=== PATIENT | female | born 1935 | race American Indian/Alaskan Native ===

== ENCOUNTER 2017-04-25 19:00 | Inpatient (IN) | payer MEDICARE, BC ==
[2017-04-25 19:04] VITALS: BMI 24.2
--- NOTE | 2017-04-25 20:21 | C.PDOC ---
History Of Present Illness 82 y/o female with PMHx of COPD presents to ED with multiple complaints including herpes zoster to left buttock, lesion on left medial digit dorsally and ulcers to mouth. Patient is dramatic at ED and reports she has only been able to drink soup secondary to ulcers in mouth. Patient had previously states she was "sob" but upon evaluation patient shows no signs of respiratory distress and O2 stats are at 100% on room air. Patient states "I want to be admitted". No other complaints at this time. Chief Complaint (Nursing): Abnormal Skin Integrity History Per: Patient History/Exam Limitations: no limitations Onset/Duration Of Symptoms: Days Current Symptoms Are (Timing): Still Present Past Medical History Reviewed: Historical Data, Nursing Documentation, Vital Signs Vital Signs: Last Vital Signs Temp 99.2 F 04/25/17 22:38 Pulse 76 04/25/17 22:38 Resp 19 04/25/17 22:38 BP 114/67 04/25/17 22:38 Pulse Ox 100 04/25/17 22:38 - Medical History PMH: Anemia (HX.), Arthritis (RA), COPD, Gastritis, HTN, Rheumatoid Arthritis Surgical History: Tonsillectomy - [facility] Procedures CATARAC PHACOEMULS/ASPIR (09/10/13) ENDO RECTUM POLYPECTOMY (12/10/12) ESOPHAGOGASTRODUODENOSCOPY [EGD] W/CLOSED BIOPSY (12/10/12) INSERT LENS AT CATAR EXT (09/10/13) INSERTION OF INFUSION DEV INTO R BASILIC VEIN, PERC APPROACH (06/07/15) INSERTION OF INFUSION DEV INTO SUP VENA CAVA, PERC APPROACH (06/18/15) TRANSFUSE NONAUT RED BLOOD CELLS IN PERIPH VEIN, PERC (06/18/15) ULTRASONOGRAPHY OF RIGHT UPPER EXTREMITY VEINS, GUIDANCE (06/07/15) ULTRASONOGRAPHY OF SUPERIOR VENA CAVA, GUIDANCE (06/18/15) Family History: States: No Known Family Hx - Social History Hx Alcohol Use: No Hx Substance Use: No - Immunization History Hx Tetanus Toxoid Vaccination: No Hx Influenza Vaccination: No Hx Pneumococcal Vaccination: No Review Of Systems Constitutional: Negative for: Fever, Chills Gastrointestinal: Negative for: Nausea, Vomiting Genitourinary: Negative for: Dysuria, Hematuria Skin: Positive for: Rash Neurological: Negative for: Weakness, Numbness Physical Exam - Physical Exam Appears: Non-toxic, No Acute Distress Skin: Warm, Dry, Rash (3- 2cm in diameter herpes zoster to left buttock. + superficial ulcer to left medial digit on dorsal aspect) Head: Atraumatic, Normacephalic Eye(s): bilateral: Normal Inspection, EOMI Oral Mucosa: Moist Gingiva: No Bleeding, Other (Superficial ulcer to oral mucosa bilaterally ) Throat: Normal, No Erythema, No Exudate Neck: Normal ROM, Supple Chest: Symmetrical Cardiovascular: Rhythm Regular Respiratory: Normal Breath Sounds, No Rales, No Rhonchi, No Wheezing Gastrointestinal/Abdominal: Soft, No Tenderness, No Guarding, No Rebound Neurological/Psych: Oriented x3, Normal Speech, Normal Motor, Normal Sensation ED Course And Treatment - Laboratory Results Result Diagrams: 04/25/17 20:30 04/25/17 20:30 O2 Sat by Pulse Oximetry: 98 (RA) Pulse Ox Interpretation: Normal Medical Decision Making Medical Decision Making: Impression: Plan: Evaluation of SOB with CXR and Routine Labs Progress: Disposition - Disposition Disposition: HOME/ ROUTINE Disposition Time: 20:22 Condition: GOOD - Clinical Impression Clinical Impression: Macrocytic anemia, Renal insufficiency - Scribe Statement The provider has reviewed the documentation as recorded by the Scribe Esme Crouch All medical record entries made by the Scribe were at my direction and personally dictated by me. I have reviewed the chart and agree that the record accurately reflects my personal performance of the history, physical exam, medical decision making, and the department course for this patient. I have also personally directed, reviewed, and agree with the discharge instructions and disposition. Decision To Admit - Pt Status Changed To: Hospital Disposition Of: Inpatient - Admit Certification Admit to Inpatient:: After my assessment, the patient will require hospitalization for at least two midnights. This is because of the severity of symptoms shown, intensity of services needed, and/or the medical risk in this patient being treated as an outpatient. - InPatient: Physician Admission Certification: I certify that this patient requires 2 or more midnights of care for the following reason:: macrocytic anemia,renal insufficiency - . Bed Request Type: Regular Admitting Physician: Ar Beavers Patient Diagnosis: Macrocytic anemia, Renal insufficiency
[2017-04-25 20:33] LABS: MONO # 0.1 K/uL (0.0-0.8); NRBC % 0.4 % (0.0-2.0); RED CELL DISTRIBUTION WIDTH 17.2 % (11.5-14.5)
[2017-04-25 20:46] LABS: BASO % 0.4 % (0.0-2.0); EOS % 0.5 % (0.0-4.0); HEMATOCRIT 23.2 % (34.0-47.0); LYMPH # 1.6 K/uL (1.0-4.3); LYMPH % 42.6 % (20.0-40.0); MEAN CORPUSCULAR HEMOGLOBIN 32.8 pg (27.0-31.0); MEAN CORPUSCULAR HGB CONC 32.9 g/dL (33.0-37.0); MEAN PLATELET VOLUME 8.1 fL (7.2-11.7); MONO % 2.8 % (0.0-10.0); POTASSIUM 5.2 mmol/L (3.6-5.2)
[2017-04-25 20:48] LABS: ALB/GLOB RATIO 1.1 (1.0-2.1); BILIRUBIN,TOTAL 3.5 mg/dL (0.2-1.3); TOTAL PROTEIN 8.9 g/dL (6.3-8.3)
[2017-04-25 20:49] LABS: CALCIUM 8.8 mg/dl (8.6-10.4)
[2017-04-25 20:52] LABS: WHITE BLOOD COUNT 3.7 K/uL (4.8-10.8)
[2017-04-25 20:53] LABS: MEAN CELL VOLUME 99.7 fL (81.0-99.0)
[2017-04-25 22:57] LABS: FOLATE > 20.0 ng/mL
--- NOTE | 2017-04-26 07:57 | RAD ---
PROCEDURE: CHEST RADIOGRAPH, 1 VIEW HISTORY: SOB COMPARISON: Portable chest radiograph 07/06/2016. FINDINGS: LUNGS: Clear. PLEURA: No pneumothorax or pleural fluid seen. CARDIOVASCULAR: Normal. OSSEOUS STRUCTURES: No significant abnormalities. VISUALIZED UPPER ABDOMEN: Normal. OTHER FINDINGS: Bilateral breast implants again evident. IMPRESSION: No interval acute cardiopulmonary disease appreciated.
[2017-04-26] MEDS ORDERED: Lidocaine 1% Inj (20ml) INFIL ONE (08:07)
--- NOTE | 2017-04-26 08:40 | CP.PCM.CON ---
History of Present Illness - History of Present Illness History of Present Illness: This is an 82 year old woman with mouth ulcers, pain and anemia. Patient was previously evaluated 11/24/2012 for poor appetite, belching, weight loss. Colonoscopy and EGD 12/10/12 showed hyperplastic polyp, internal hemorrhoids and non-erosive gastritis, negative fror H pylori. Patient was admiktted 04/25/2017 for herpes zoster left buttock, and mouth ulcers. She states that the mouth ulcers have been present for the past three weeks, making it impossible to eat solid food, so that she has been subsisting on soup. Her appetite has been good, but she has lost weight, an amount which she cannot quantify. She denies having nausea, vomiting, diarrhea, constipation , rectal bleeding and abdominal pain. Admitting lab work showed pancytopenia: WBC 3.7, HGB 7.6, MCV 99.7, platelets 90K. In June, the CBC showed WBC 10.6, HGB 12.6, platelets 256K. Stool occult blood was negative. Review of Systems - Review of Systems All systems: reviewed and no additional remarkable complaints except - Constitutional Constitutional: absent: Chills, Fever, Weakness - EENT Nose/Mouth/Throat: Mouth Lesions, Odynophagia - Gastrointestinal Gastrointestinal: Dysphagia, Odynophagia. absent: Abdominal Pain, Constipation , Diarrhea, Heartburn, Hematochezia, Nausea, Vomiting - Genitourinary Genitourinary: absent: Dysuria, Hematuria Past Patient History - Infectious Disease Hx of Infectious Diseases: None - Tetanus Immunizations Tetanus Immunization: Unknown - Past Medical History & Family History Past Medical History?: Yes - Past Social History Smoking Status: Former Smoker - CARDIAC Hx Cardiac Disorders: Yes Hx Hypertension: Yes - PULMONARY Hx Respiratory Disorders: Yes Hx Chronic Obstructive Pulmonary Disease (COPD): Yes - NEUROLOGICAL Hx Neurological Disorder: Yes HX Cerebrovascular Accident: Yes (2009) - HEENT Hx HEENT Problems: Yes Hx Cataracts: Yes (both eyes) - RENAL Hx Chronic Kidney Disease: No - ENDOCRINE/METABOLIC Hx Endocrine Disorders: Yes Hx Diabetes Mellitus Type 2: Yes (no meds) - HEMATOLOGICAL/ONCOLOGICAL Hx Anemia: Yes (HX.) Hx Blood Transfusions: Yes - INTEGUMENTARY Hx Dermatological Problems: Yes Other/Comment: shingles L Buttock - MUSCULOSKELETAL/RHEUMATOLOGICAL Hx Falls: No - GASTROINTESTINAL Hx Gastrointestinal Disorders: Yes Hx Gastritis: Yes - GENITOURINARY/GYNECOLOGICAL Hx Genitourinary Disorders: No - PSYCHIATRIC Hx Substance Use: No - SURGICAL HISTORY Hx Surgeries: Yes Hx Tonsillectomy: Yes - ANESTHESIA Hx Anesthesia: Yes Hx Anesthesia Reactions: No Hx Malignant Hyperthermia: No Meds Allergies/Adverse Reactions: Allergies Allergy/AdvReac Type Severity Reaction Status Date / Time Penicillins Allergy Intermediate Verified 04/25/17 19:01 - Medications Medications: Current Medications Clopidogrel Bisulfate (Plavix) 75 mg PO DAILY [facility] Enoxaparin Sodium (Lovenox) 40 mg SC DAILY [facility] Ergocalciferol (Drisdol 50,000 Intl Units Cap) 1 cap PO QWK [facility] Folic Acid (Folic Acid) 1 mg PO DAILY [facility] Home Med (Fluticasone/Vilanterol [Breo Ellipta 100-25 Mcg Inh]) 1 pow IH DAILY [facility] Sodium Chloride (Sodium Chloride 0.45%) 1,000 mls @ 40 mls/hr IV .Q24H [facility] Multivitamins/Minerals (Therapeutic-M Tab) 1 tab PO DAILY [facility] Pneumococcal Polyvalent Vaccine (Pneumovax 23 Vaccine) 0.5 ml IM .ONCE ONE Stop: 04/28/17 10:01 Valacyclovir HCl (Valtrex) 500 mg PO BID [facility] Physical Exam - Constitutional Appears: No Acute Distress - Head Exam Head Exam: ATRAUMATIC, NORMOCEPHALIC - Eye Exam Eye Exam: EOMI, PERRL - Neck Exam Neck exam: Negative for: Lymphadenopathy, Thyromegaly - Respiratory Exam Respiratory Exam: NORMAL BREATHING PATTERN. absent: Rales, Rhonchi, Wheezes - Cardiovascular Exam Cardiovascular Exam: REGULAR RHYTHM, +S1, +S2. absent: Gallop, Rubs, Systolic Murmur - GI/Abdominal Exam GI & Abdominal Exam: Normal Bowel Sounds, Soft. absent: Mass, Organomegaly, Tenderness - Rectal Exam Rectal Exam: Deferred - Extremities Exam Extremities exam: Negative for: calf tenderness, pedal edema Results - Vital Signs Recent Vital Signs: Last Vital Signs Temp 98.9 F 04/26/17 01:11 Pulse 80 04/26/17 01:11 Resp 20 04/26/17 01:11 BP 127/59 L 04/26/17 01:11 Pulse Ox 99 04/26/17 01:20 - Labs Result Diagrams: 04/25/17 20:30 04/25/17 20:30 Labs: Laboratory Results - last 24 hr 04/25/17 04/25/17 04/25/17 20:30 20:30 21:19 WBC 3.7 L D RBC 2.32 L Hgb 7.6 L D Hct 23.2 L MCV 99.7 H D MCH 32.8 H MCHC 32.9 L RDW 17.2 H Plt Count 90 L D MPV 8.1 Neut % (Auto) 53.7 Lymph % (Auto) 42.6 H Kenton % (Auto) 2.8 Eos % (Auto) 0.5 Baso % (Auto) 0.4 Neut # 2.0 Lymph # 1.6 Kenton # 0.1 Eos # 0.0 Baso # 0.0 Differential Comment Sodium 133 Potassium 5.2 Chloride 99 Carbon Dioxide 21 L Anion Gap 18 BUN 44 H Creatinine 2.3 H Est GFR ( Amer) 25 Est GFR (Non-Af Amer) 20 Random Glucose 79 Calcium 8.8 Total Bilirubin 3.5 H AST 79 H ALT 38 Alkaline Phosphatase 373 H NT-Pro-B Natriuret Pep 941 H Total Protein 8.9 H Albumin 4.6 Globulin 4.3 H Albumin/Globulin Ratio 1.1 Vitamin B12 Folate Stool Occult Blood Blood Type A POSITIVE Antibody Screen Negative 04/25/17 04/25/17 21:27 21:41 WBC RBC Hgb Hct MCV MCH MCHC RDW Plt Count MPV Neut % (Auto) Lymph % (Auto) Kenton % (Auto) Eos % (Auto) Baso % (Auto) Neut # Lymph # Kenton # Eos # Baso # Differential Comment Sodium Potassium Chloride Carbon Dioxide Anion Gap BUN Creatinine Est GFR ( Amer) Est GFR (Non-Af Amer) Random Glucose Calcium Total Bilirubin AST ALT Alkaline Phosphatase NT-Pro-B Natriuret Pep Total Protein Albumin Globulin Albumin/Globulin Ratio Vitamin B12 666 Folate > 20.0 Stool Occult Blood Negative Blood Type Antibody Screen Assessment & Plan (1) Macrocytic anemia Assessment and Plan: Patient has anemia in the setting of pancytopenia, with macrocytosis and negative occult blood in the stool. This does not seem to be attributable to a gastrointestinal cause. Odynophagia is probably due to oral ulcers ? herpetic. Woill consider repeat EGD. Status: Acute
[2017-04-26] MEDS ORDERED: Enoxaparin 40 mg Syringe SC SCH (10:00)
[2017-04-26 11:45] LABS: HEMATOCRIT 20.2 % (34.0-47.0); MEAN CELL VOLUME 100.9 fL (81.0-99.0); MEAN CORPUSCULAR HEMOGLOBIN 33.8 pg (27.0-31.0); MEAN CORPUSCULAR HGB CONC 33.5 g/dL (33.0-37.0); MEAN PLATELET VOLUME 7.7 fL (7.2-11.7); RED CELL DISTRIBUTION WIDTH 16.6 % (11.5-14.5); WHITE BLOOD COUNT 3.1 K/uL (4.8-10.8)
[2017-04-26 11:55] LABS: RETIC% 0.8 % (0.5-1.5)
[2017-04-26 12:03] LABS: BILIRUBIN,TOTAL 3.2 mg/dL (0.2-1.3)
[2017-04-26] MEDS: Ergocalciferol 50,000 Intl Units Cap PO SCH ×2 (12:03→17:41)
[2017-04-26 12:04] LABS: ALB/GLOB RATIO 1.1 (1.0-2.1); CALCIUM 8.5 mg/dl (8.6-10.4); TOTAL PROTEIN 7.2 g/dL (6.3-8.3)
[2017-04-26] MEDS: Multivitamin With Minerals Tab PO SCH ×2 (12:04→17:41)
[2017-04-26] MEDS: Enoxaparin 30 mg Syringe SC SCH (12:04)
[2017-04-26] MEDS: Sodium Chloride 0.45% 1,000 ML IV SCH ×2 (12:04→17:47)
[2017-04-26 12:07] LABS: POTASSIUM 3.6 mmol/L (3.6-5.2)
[2017-04-26] MEDS ORDERED: Lidocaine 2% Inj (20ml) ONE (13:32)
--- NOTE | 2017-04-26 13:42 | PCM.SURG1 ---
Surgeon's Initial Post Op Note - Surgeon's Notes Surgeon: Jordon Aguirre MD Toolsmith: NONE Type of Anesthesia: Local Pre-Operative Diagnosis: Poor venous access Operative Findings: Patent right brachial vein Post-Operative Diagnosis: Poor venous access Operation Performed: Single lumen picc placement, 33 cm. Tip is in the SVC. Specimen/Specimens Removed: none Estimated Blood Loss: EBL {In ML}: 2 Blood Products Given: N/A Drains Used: No Drains Post-Op Condition: Fair Date of Surgery/Procedure: 04/26/17 Time of Surgery/Procedure: 13:40
[2017-04-26] MEDS ORDERED: Lidocaine 2% Inj (20ml) INFIL ONE (14:30)
--- NOTE | 2017-04-26 16:01 | HP ---
HISTORY OF PRESENT ILLNESS: I was called to the emergency room to put her in the hospital. She is in her room right now. She has multiple problems. She came in very weak, also with a very low hemoglobin. She is an 82-year-old female with a past medical history of COPD with herpes zoster in the left buttock with ulcers, also with finger ulcer, abscess in her mouth, and she is quite anemic. PAST MEDICAL HISTORY: Anemia, arthritis, COPD, gastritis, hypertension, rheumatoid arthritis. PAST SURGICAL HISTORY: Tonsillectomy, cataracts, polypectomy, esophagogastroduodenoscopy with biopsy, cataract plus lens, basilic vein percutaneous approach, superior vena cava approach, transfusions, ultrasound of the right upper extremity vein guidance, also ultrasound of superior vena cava. FAMILY HISTORY: Hypertension in the family. SOCIAL HISTORY: No alcohol. No substance abuse. REVIEW OF SYSTEMS: She is very weak, multiple complaints to the buttocks, her finger, and mouth, cannot eat well; also feels very lethargic. PHYSICAL EXAMINATION: VITAL SIGNS: She has 98.9 temperature, 80 pulse, 127/59 blood pressure, 20 respiratory rate, and 98% O2 sat on room air. HEENT: Head is atraumatic and normocephalic. Mild distress, very flustered with too many things going on. She has a mouth abscess, difficult to open the mouth all the way and it is painful. NECK: Supple. Mild lymphadenopathy on the right side. HEART: Regular rate. LUNGS: Decreased breath sounds. Clear to auscultation. No wheezing. No rhonchi. No rales. ABDOMEN: Soft and nontender. Positive bowel sounds. No guarding. No rebound. NEUROLOGIC: Alert and oriented x3. Normal speech. SKIN: She has multiple ulcers to left buttock, this could be shingles; also on the finger of her left medial digit an ulcer. PSYCHIATRIC: A little bit stress, not anxious, not depressed. THYROID: Midline. No palpable lymphadenopathy except on the cervical side appreciated. LABORATORY DATA: She has a negative occult blood. Sodium 133, potassium 5.2, BUN 44, creatinine 2.3. A little bit of renal insufficiency, she will be on IV fluids. Calcium is 8.8, sugar is 79. Total bilirubin is 3.5, AST is 79, ALT is 38, and alkaline phosphatase is 373. BNP is 941. Folate is 20, B12 is 666. She has a 3.7 white count; hemoglobin is up to 7.6, we are transfusing her 2 units; hematocrit is 23.2; platelets are 90. PLAN: She is going to have consults with GI, Hematology, Infectious Disease. We will check her labs, IV fluids, transfusions, antibiotics for abscess. SHE IS ALLERGIC TO PENICILLIN. She is quite anemic. Tyrell Maya DO [facility]
--- NOTE | 2017-04-26 16:04 | CP.PCM.CON ---
History of Present Illness - History of Present Illness History of Present Illness: 82 yo woman with history of rheumatoid arthritis and recently diagnosed with herpes zoster on her left buttock 2-3 weeks ago, slightly better since then. The patient was found to have severe anemia, admitted for work up. The patient has no obvious bleeding, blood counts in the past have been pretty stable. She just had a PICC line placed with some bleeding from the site. The patient denies fever, night sweats, weight loss. She is complaining of some GOLD, no cough. She is complaining of soreness of mouth, some diarrhea. Past Patient History - Infectious Disease Hx of Infectious Diseases: None - Tetanus Immunizations Tetanus Immunization: Unknown - Past Medical History & Family History Past Medical History?: Yes - Past Social History Smoking Status: Former Smoker - CARDIAC Hx Cardiac Disorders: Yes Hx Hypertension: Yes - PULMONARY Hx Respiratory Disorders: Yes Hx Chronic Obstructive Pulmonary Disease (COPD): Yes - NEUROLOGICAL Hx Neurological Disorder: Yes HX Cerebrovascular Accident: Yes (2009) - HEENT Hx HEENT Problems: Yes Hx Cataracts: Yes (both eyes) - RENAL Hx Chronic Kidney Disease: No - ENDOCRINE/METABOLIC Hx Endocrine Disorders: Yes Hx Diabetes Mellitus Type 2: Yes (no meds) - HEMATOLOGICAL/ONCOLOGICAL Hx Anemia: Yes (HX.) Hx Blood Transfusions: Yes - INTEGUMENTARY Hx Dermatological Problems: Yes Other/Comment: shingles L Buttock - MUSCULOSKELETAL/RHEUMATOLOGICAL Hx Falls: No - GASTROINTESTINAL Hx Gastrointestinal Disorders: Yes Hx Gastritis: Yes - GENITOURINARY/GYNECOLOGICAL Hx Genitourinary Disorders: No - PSYCHIATRIC Hx Substance Use: No - SURGICAL HISTORY Hx Surgeries: Yes Hx Tonsillectomy: Yes - ANESTHESIA Hx Anesthesia: Yes Hx Anesthesia Reactions: No Hx Malignant Hyperthermia: No Meds Allergies/Adverse Reactions: Allergies Allergy/AdvReac Type Severity Reaction Status Date / Time Penicillins Allergy Intermediate Verified 04/25/17 19:01 - Medications Medications: Current Medications Clopidogrel Bisulfate (Plavix) 75 mg PO DAILY [facility] Last Admin: 04/26/17 12:04 Dose: Not Given Enoxaparin Sodium (Lovenox) 30 mg SC DAILY [facility] Last Admin: 04/26/17 12:04 Dose: Not Given Ergocalciferol (Drisdol 50,000 Intl Units Cap) 1 cap PO QWK [facility] Last Admin: 04/26/17 12:03 Dose: Not Given Folic Acid (Folic Acid) 1 mg PO DAILY [facility] Last Admin: 04/26/17 12:04 Dose: Not Given Sodium Chloride (Sodium Chloride 0.45%) 1,000 mls @ 40 mls/hr IV .Q24H [facility] Last Admin: 04/26/17 12:04 Dose: Not Given Multivitamins/Minerals (Therapeutic-M Tab) 1 tab PO DAILY [facility] Last Admin: 04/26/17 12:04 Dose: Not Given Pneumococcal Polyvalent Vaccine (Pneumovax 23 Vaccine) 0.5 ml IM .ONCE ONE Stop: 04/28/17 10:01 Fluticasone/Salmeterol (Advair Diskus 250/50) 1 puff INH RQ12 [facility] Valacyclovir HCl (Valtrex) 500 mg PO BID [facility] Last Admin: 04/26/17 12:04 Dose: Not Given Results - Vital Signs Recent Vital Signs: Last Vital Signs Temp 99.1 F 04/26/17 08:35 Pulse 78 04/26/17 08:35 Resp 20 04/26/17 08:35 BP 107/64 04/26/17 08:35 Pulse Ox 96 04/26/17 08:35 - Labs Result Diagrams: 04/26/17 11:25 04/26/17 11:25 Labs: Laboratory Results - last 24 hr 04/25/17 04/25/17 04/25/17 20:30 20:30 21:19 WBC 3.7 L D RBC 2.32 L Hgb 7.6 L D Hct 23.2 L MCV 99.7 H D MCH 32.8 H MCHC 32.9 L RDW 17.2 H Plt Count 90 L D MPV 8.1 Neut % (Auto) 53.7 Lymph % (Auto) 42.6 H Stokes % (Auto) 2.8 Eos % (Auto) 0.5 Baso % (Auto) 0.4 Neut # 2.0 Lymph # 1.6 Stokes # 0.1 Eos # 0.0 Baso # 0.0 Differential Comment Retic Count Sodium 133 Potassium 5.2 Chloride 99 Carbon Dioxide 21 L Anion Gap 18 BUN 44 H Creatinine 2.3 H Est GFR ( Amer) 25 Est GFR (Non-Af Amer) 20 Random Glucose 79 Calcium 8.8 Total Bilirubin 3.5 H GGT AST 79 H ALT 38 Alkaline Phosphatase 373 H Lactate Dehydrogenase NT-Pro-B Natriuret Pep 941 H Total Protein 8.9 H Albumin 4.6 Globulin 4.3 H Albumin/Globulin Ratio 1.1 Vitamin B12 Folate Stool Occult Blood Blood Type A POSITIVE Antibody Screen Negative 04/25/17 04/25/17 04/26/17 21:27 21:41 11:25 WBC 3.1 L RBC 2.00 L Hgb 6.7 L Hct 20.2 L MCV 100.9 H MCH 33.8 H MCHC 33.5 RDW 16.6 H Plt Count 71 L MPV 7.7 Neut % (Auto) Lymph % (Auto) Stokes % (Auto) Eos % (Auto) Baso % (Auto) Neut # Lymph # Stokes # Eos # Baso # Differential Comment Retic Count 0.8 Sodium Potassium Chloride Carbon Dioxide Anion Gap BUN Creatinine Est GFR ( Amer) Est GFR (Non-Af Amer) Random Glucose Calcium Total Bilirubin GGT AST ALT Alkaline Phosphatase Lactate Dehydrogenase NT-Pro-B Natriuret Pep Total Protein Albumin Globulin Albumin/Globulin Ratio Vitamin B12 666 Folate > 20.0 Stool Occult Blood Negative Blood Type Antibody Screen 04/26/17 11:25 WBC RBC Hgb Hct MCV MCH MCHC RDW Plt Count MPV Neut % (Auto) Lymph % (Auto) Stokes % (Auto) Eos % (Auto) Baso % (Auto) Neut # Lymph # Stokes # Eos # Baso # Differential Comment Retic Count Sodium 136 Potassium 3.6 Chloride 101 Carbon Dioxide 23 Anion Gap 16 BUN 39 H Creatinine 1.8 H Est GFR ( Amer) 33 Est GFR (Non-Af Amer) 27 Random Glucose 84 Calcium 8.5 L Total Bilirubin 3.2 H GGT 277 H AST 46 H D ALT 29 Alkaline Phosphatase 319 H Lactate Dehydrogenase 475 NT-Pro-B Natriuret Pep Total Protein 7.2 Albumin 3.7 Globulin 3.5 Albumin/Globulin Ratio 1.1 Vitamin B12 Folate Stool Occult Blood Blood Type Antibody Screen Assessment & Plan (1) Pancytopenia Assessment and Plan: Pancytopenia without splenomegaly on prior CATscans, normal b12, ferritin and iron studies, normal LDH, low retics, without any abnormal WBCs reported on smear. Her serum creatinine has improved on iv hydration. Possible etiologies include bone marrow suppression from meds (methotrexate, viral infection), low grade MDS, ??aplasia Will need a bone marrow biopsy. Patient agreeable. For now PRBC transfusion, one dose of Neupogen, will check indirect bili levels Status: Acute
--- NOTE | 2017-04-26 18:02 | CP.PCM.CON ---
History of Present Illness - History of Present Illness History of Present Illness: 82 year old woman with mouth ulcers, pain and anemia. started having painful ulcers left buttock 3 weeks ago failed out pt rx Now pancytopenic and with oral ulcers Started on Valtrex last night Patient was admiktted 04/25/2017 for herpes zoster left buttock, and mouth ulcers. She states that the mouth ulcers have been present for the past three weeks, making it impossible to eat solid food, so that she has been subsisting on soup. Her appetite has been good, but she has lost weight, an amount which she cannot quantify. She denies having nausea, vomiting, diarrhea, constipation , rectal bleeding and abdominal pain. Takes methotrexate for RA under care of Dr Mcdonald Seen by heme- to r/o Leukemia Bone Marrow Bx pending Review of Systems - Constitutional Constitutional: As Per HPI - EENT Eyes: absent: As Per HPI, Blind Spots, Blurred Vision, Change in Vision, Decreased Night Vision, Diplopia, Discharge, Dry Eye, Exophthalmos, Floaters, Irritation, Itchy Eyes, Loss of Peripheral Vision, Pain, Photophobia, Requires Corrective Lenses, Sees Flashes, Spots in Vision, Tunnel Vision, Other Visual Disturbances, Loss of Vision, Other Ears: absent: As Per HPI, Decreased Hearing, Ear Discharge, Ear Pain, Tinnitus, Abnormal Hearing, Disequilibrium, Dizziness, Other Nose/Mouth/Throat: As Per HPI - Breasts Breasts: absent: As Per HPI, Change in Shape, Mass, Pain, Nipple Discharge, Nipple Inversion, Skin Changes, Swelling, Other - Cardiovascular Cardiovascular: absent: As Per HPI, Acrocyanosis, Chest Pain, Chest Pain at Rest , Chest Pain with Activity, Claudication, Diaphoresis, Dyspnea, Dyspnea on Exertion, Edema, Irregular Heart Rhythm, Pain Radiating to Arm/Neck/Jaw, Leg Edema, Leg Ulcers, Lightheadedness, Orthopnea, Palpitations, Paroxysmal Nocturnal Dyspnea, Pedal Edema, Radiating Pain, Rapid Heart Rate, Slow Heart Rate, Syncope, Other - Respiratory Respiratory: absent: As Per HPI, Cough, Dyspnea, Hemoptysis, Dyspnea on Exertion , Wheezing, Snoring, Stridor, Pain on Inspiration, Chest Congestion, Excessive Mucous Production, Change in Mucous Color, Pain with Coughing, Other - Gastrointestinal Gastrointestinal: As Per HPI - Genitourinary Genitourinary: absent: As Per HPI, Change in Urinary Stream, Difficulty Urinating, Dysuria, Flank Pain, Hematuria, Pyuria, Nocturia, Urinary Incontinence, Urinary Frequency, Urinary Hesitance, Urinary Urgency, Voiding Freq/Small Amts, Freq UTI, Hx Renal/Bladder Calculi, Hx /Renal Surgery, Bladder Distension, Other - Reproductive: Female Reproductive:Female: absent: As Per HPI, Amenorrhea, Amenorrhea/ Control, Currently Menstual, Cycle <21 Days, Cycle >35 Days, Cycle Variable, Menses 1-7 Days, Menses >/= 8 Days, Menses Variable, Cycle > 4 Weeks Between, No Menses for 6 Months, Heavy Menses, Light Menses, Normal Menses, Spotting Between Cycles , S/P Hysterectomy, Menopausal, Post Menopausal, Premenarche, Abnormal Vaginal Bleeding, Dysmenorrhea, Dyspareunia, Genital Lesions, Genital Pruritis, Pelvic Pain, Prolapse Symptoms, Sexual Dysfunction, Vaginal Discharge, Vaginal Dryness , Vaginal Odor, Vaginal Pruritis, Other - Menstruation Menstruation: absent: As Per HPI, Amenorrhea, Amenorrhea/ Control, Currently Menstual, Cycle <21 Days, Cycle >35 Days, Cycle Variable, Menses 1-7 Days, Menses >/= 8 Days, Menses Variable, Cycle > 4 Weeks Between, No Menses for 6 Months, Heavy Menses, Light Menses, Normal Menses, Spotting Between Cycles , S/P Hysterectomy, Menopausal, Post Menopausal, Premenarche, Abnormal Vaginal Bleeding, Dysmenorrhea, Other - Musculoskeletal Musculoskeletal: As Per HPI - Integumentary Integumentary: As Per HPI - Neurological Neurological: absent: As Per HPI, Abnormal Gait, Abnormal Hearing, Abnormal Movements, Abnormal Speech, Behavioral Changes, Burning Sensations, Confusion, Convulsions, Disequilibrium, Dizziness, Numbness, Focal Weakness, Frequent Falls , Headaches, Lack of Coordination, Loss of Vision, Memory Loss, Paresthesias, Radicular Pain, Restless Legs, Sensory Deficit, Syncope, Tingling, Tremor, Vertigo, Weakness, Other Visual Disturbances, Other - Psychiatric Psychiatric: absent: As Per HPI, Abnormal Sleep Pattern, Anhedonia, Anxiety, Auditory Hallucinations, Behavioral Changes, Change in Appetite, Change in Libido, Confusion, Depression, Difficulty Concentrating, Hallucinations, Homicidal Ideation, Hopelessness, Irritability, Memory Loss, Mood Swings, Panic Attacks, Paranoia, Suicidal Ideation, Visual Hallucinations, Tactile Hallucinations, Other - Endocrine Endocrine: absent: As Per HPI, Change in Body Appearance, Change in Libido, Cold Intolorance, Deepening of Voice, Excessive Sweating, Fatigue, Flushing, Heat Intolorance, Increase in Ring/Shoe/Hat Size, Palpitations, Polydipsia, Polyphagia, Polyuria, Other - Hematologic/Lymphatic Hematologic: absent: As Per HPI, Easy Bleeding, Easy Bruising, Lymphadenopathy, Other Past Patient History - Infectious Disease Hx of Infectious Diseases: None - Tetanus Immunizations Tetanus Immunization: Unknown - Past Medical History & Family History Past Medical History?: Yes - Past Social History Smoking Status: Former Smoker - CARDIAC Hx Cardiac Disorders: Yes Hx Hypertension: Yes - PULMONARY Hx Respiratory Disorders: Yes Hx Chronic Obstructive Pulmonary Disease (COPD): Yes - NEUROLOGICAL Hx Neurological Disorder: Yes HX Cerebrovascular Accident: Yes (2009) - HEENT Hx HEENT Problems: Yes Hx Cataracts: Yes (both eyes) - RENAL Hx Chronic Kidney Disease: No - ENDOCRINE/METABOLIC Hx Endocrine Disorders: Yes Hx Diabetes Mellitus Type 2: Yes (no meds) - HEMATOLOGICAL/ONCOLOGICAL Hx Anemia: Yes (HX.) Hx Blood Transfusions: Yes - INTEGUMENTARY Hx Dermatological Problems: Yes Other/Comment: shingles L Buttock - MUSCULOSKELETAL/RHEUMATOLOGICAL Hx Falls: No - GASTROINTESTINAL Hx Gastrointestinal Disorders: Yes Hx Gastritis: Yes - GENITOURINARY/GYNECOLOGICAL Hx Genitourinary Disorders: No - PSYCHIATRIC Hx Substance Use: No - SURGICAL HISTORY Hx Surgeries: Yes Hx Tonsillectomy: Yes - ANESTHESIA Hx Anesthesia: Yes Hx Anesthesia Reactions: No Hx Malignant Hyperthermia: No Meds Allergies/Adverse Reactions: Allergies Allergy/AdvReac Type Severity Reaction Status Date / Time Penicillins Allergy Intermediate Verified 04/25/17 19:01 - Medications Medications: Current Medications Clopidogrel Bisulfate (Plavix) 75 mg PO DAILY [facility] Last Admin: 04/26/17 12:04 Dose: Not Given Enoxaparin Sodium (Lovenox) 30 mg SC DAILY [facility] Last Admin: 04/26/17 12:04 Dose: Not Given Ergocalciferol (Drisdol 50,000 Intl Units Cap) 1 cap PO QWK [facility] Last Admin: 04/26/17 17:41 Dose: 1 cap Folic Acid (Folic Acid) 1 mg PO DAILY [facility] Last Admin: 04/26/17 17:41 Dose: 1 mg Sodium Chloride (Sodium Chloride 0.45%) 1,000 mls @ 40 mls/hr IV .Q24H [facility] Last Admin: 04/26/17 17:47 Dose: 40 mls/hr Multivitamins/Minerals (Therapeutic-M Tab) 1 tab PO DAILY [facility] Last Admin: 04/26/17 17:41 Dose: 1 tab Pneumococcal Polyvalent Vaccine (Pneumovax 23 Vaccine) 0.5 ml IM .ONCE ONE Stop: 04/28/17 10:01 Fluticasone/Salmeterol (Advair Diskus 250/50) 1 puff INH RQ12 [facility] Valacyclovir HCl (Valtrex) 500 mg PO BID [facility] Last Admin: 04/26/17 17:41 Dose: 500 mg Physical Exam - Constitutional Appears: Non-toxic, Chronically Ill - Head Exam Head Exam: ATRAUMATIC, NORMAL INSPECTION, NORMOCEPHALIC - Eye Exam Eye Exam: EOMI, PERRL. absent: Scleral icterus Pupil Exam: PERRL - ENT Exam ENT Exam: Mucous Membranes Dry, Normal External Ear Exam. absent: Normal Oropharynx Additional comments: superficial oral ulcers - Neck Exam Neck exam: Negative for: Lymphadenopathy - Respiratory Exam Respiratory Exam: Decreased Breath Sounds, Clear to Auscultation Bilateral - Cardiovascular Exam Cardiovascular Exam: REGULAR RHYTHM, +S1, +S2 - GI/Abdominal Exam GI & Abdominal Exam: Diminished Bowel Sounds, Distended, Soft. absent: Guarding , Tenderness - Rectal Exam Rectal Exam: Deferred - Exam Exam: NORMAL INSPECTION - Extremities Exam Extremities exam: Positive for: pedal pulses present. Negative for: calf tenderness, tenderness - Back Exam Back exam: absent: CVA tenderness (L), CVA tenderness (R), paraspinal tenderness - Neurological Exam Neurological exam: Alert, CN II-XII Intact, Oriented x3, Reflexes Normal - Psychiatric Exam Psychiatric exam: Normal Mood - Skin Skin Exam: Dry Additional comments: 3 large superficial clean ulcers on left buttock- no vesicles no pus no drainage Results - Vital Signs Recent Vital Signs: Last Vital Signs Temp 99.1 F 04/26/17 08:35 Pulse 78 04/26/17 08:35 Resp 20 04/26/17 08:35 BP 107/64 04/26/17 08:35 Pulse Ox 96 04/26/17 08:35 - Labs Result Diagrams: 04/26/17 11:25 04/26/17 11:25 Labs: Laboratory Results - last 24 hr 04/25/17 04/25/17 04/25/17 20:30 20:30 21:19 WBC 3.7 L D RBC 2.32 L Hgb 7.6 L D Hct 23.2 L MCV 99.7 H D MCH 32.8 H MCHC 32.9 L RDW 17.2 H Plt Count 90 L D MPV 8.1 Neut % (Auto) 53.7 Lymph % (Auto) 42.6 H [place] % (Auto) 2.8 Eos % (Auto) 0.5 Baso % (Auto) 0.4 Neut # 2.0 Lymph # 1.6 [place] # 0.1 Eos # 0.0 Baso # 0.0 Differential Comment Retic Count Sodium 133 Potassium 5.2 Chloride 99 Carbon Dioxide 21 L Anion Gap 18 BUN 44 H Creatinine 2.3 H Est GFR ( Amer) 25 Est GFR (Non-Af Amer) 20 Random Glucose 79 Calcium 8.8 Total Bilirubin 3.5 H GGT AST 79 H ALT 38 Alkaline Phosphatase 373 H Lactate Dehydrogenase NT-Pro-B Natriuret Pep 941 H Total Protein 8.9 H Albumin 4.6 Globulin 4.3 H Albumin/Globulin Ratio 1.1 Vitamin B12 Folate Stool Occult Blood Blood Type A POSITIVE Antibody Screen Negative 04/25/17 04/25/17 04/26/17 21:27 21:41 11:25 WBC 3.1 L RBC 2.00 L Hgb 6.7 L Hct 20.2 L MCV 100.9 H MCH 33.8 H MCHC 33.5 RDW 16.6 H Plt Count 71 L MPV 7.7 Neut % (Auto) Lymph % (Auto) [place] % (Auto) Eos % (Auto) Baso % (Auto) Neut # Lymph # [place] # Eos # Baso # Differential Comment Retic Count 0.8 Sodium Potassium Chloride Carbon Dioxide Anion Gap BUN Creatinine Est GFR ( Amer) Est GFR (Non-Af Amer) Random Glucose Calcium Total Bilirubin GGT AST ALT Alkaline Phosphatase Lactate Dehydrogenase NT-Pro-B Natriuret Pep Total Protein Albumin Globulin Albumin/Globulin Ratio Vitamin B12 666 Folate > 20.0 Stool Occult Blood Negative Blood Type Antibody Screen 04/26/17 11:25 WBC RBC Hgb Hct MCV MCH MCHC RDW Plt Count MPV Neut % (Auto) Lymph % (Auto) [place] % (Auto) Eos % (Auto) Baso % (Auto) Neut # Lymph # [place] # Eos # Baso # Differential Comment Retic Count Sodium 136 Potassium 3.6 Chloride 101 Carbon Dioxide 23 Anion Gap 16 BUN 39 H Creatinine 1.8 H Est GFR ( Amer) 33 Est GFR (Non-Af Amer) 27 Random Glucose 84 Calcium 8.5 L Total Bilirubin 3.2 H GGT 277 H AST 46 H D ALT 29 Alkaline Phosphatase 319 H Lactate Dehydrogenase 475 NT-Pro-B Natriuret Pep Total Protein 7.2 Albumin 3.7 Globulin 3.5 Albumin/Globulin Ratio 1.1 Vitamin B12 Folate Stool Occult Blood Blood Type Antibody Screen Assessment & Plan (1) Pancytopenia Status: Acute (2) Renal insufficiency Status: Acute (3) ARF (acute renal failure) with tubular necrosis Status: Acute (4) Dehydration, severe Status: Acute - Assessment and Plan (Free Text) Assessment: pancytopenia with oral and skin lesions as well as elevated LFT's r/o drug toxicity, autoimmune and or neoplastic doubt Bechets r/o jacinto jorge l syndrome doubt bacterial infection no evidence of systemic sepsis await cultures and serologies may need skin bx Heme and GI eval in progress
[2017-04-26] MEDS: Mag&Al/Simet/Diphen/Lido 237 ML KIT PO SCH ×2 (19:39→21:51)
[2017-04-27] MEDS: Mag&Al/Simet/Diphen/Lido 237 ML KIT PO SCH ×5 (02:31→22:30)
[2017-04-27 03:02] LABS: TOTAL PROTEIN, SERUM 5.9 g/dL (6.1-8.1)
[2017-04-27] MEDS: Sodium Chloride 0.45% 1,000 ML IV SCH (07:30)
[2017-04-27 07:45] LABS: INTRACELLULAR PARASITE NEGATIVE (NEGATIVE)
[2017-04-27] MEDS: Fluticasone-Salmeterol 250-50mcg Diskus INH SCH (08:00)
[2017-04-27 08:36] LABS: POTASSIUM 3.6 mmol/L (3.6-5.2)
[2017-04-27 08:39] LABS: ALB/GLOB RATIO 1.5 (1.0-2.1); BASO % 0.4 % (0.0-2.0); BILIRUBIN,TOTAL 4.6 mg/dL (0.2-1.3); CALCIUM 8.8 mg/dl (8.6-10.4); EOS # 0.1 K/uL (0.0-0.7); EOS % 4.9 % (0.0-4.0); HEMATOCRIT 31.7 % (34.0-47.0); LYMPH # 1.2 K/uL (1.0-4.3); LYMPH % 38.4 % (20.0-40.0); MEAN CORPUSCULAR HEMOGLOBIN 33.5 pg (27.0-31.0); MEAN CORPUSCULAR HGB CONC 34.7 g/dL (33.0-37.0); MEAN PLATELET VOLUME 8.3 fL (7.2-11.7); MONO % 0.7 % (0.0-10.0); NRBC % 0.3 % (0.0-2.0); RED CELL DISTRIBUTION WIDTH 15.6 % (11.5-14.5); TOTAL PROTEIN 7.1 g/dL (6.3-8.3); WHITE BLOOD COUNT 3.1 K/uL (4.8-10.8)
[2017-04-27 08:40] LABS: MEAN CELL VOLUME 96.6 fL (81.0-99.0)
--- NOTE | 2017-04-27 09:01 | CP.PCM.PN ---
Subjective - Date & Time of Evaluation Date of Evaluation: 04/27/17 Time of Evaluation: 08:58 - Subjective Subjective: COVERING DR BROCK No bleeding or melena. Hematology note reviewed and bone marrow biopsy needed Objective - Vital Signs/Intake and Output Vital Signs (last 24 hours): Temp Pulse Resp BP Pulse Ox 99.5 F 84 20 138/70 98 04/27/17 04:04 04/27/17 04:04 04/27/17 04:04 04/27/17 04:04 04/27/17 00:00 Intake and Output: 04/27/17 04/27/17 06:59 18:59 Intake Total 1025 320 Balance 1025 320 - Medications Medications: Current Medications Clopidogrel Bisulfate (Plavix) 75 mg PO DAILY [facility] Last Admin: 04/26/17 12:04 Dose: Not Given Enoxaparin Sodium (Lovenox) 30 mg SC DAILY [facility] Last Admin: 04/26/17 12:04 Dose: Not Given Ergocalciferol (Drisdol 50,000 Intl Units Cap) 1 cap PO QWK [facility] Last Admin: 04/26/17 17:41 Dose: 1 cap Folic Acid (Folic Acid) 1 mg PO DAILY [facility] Last Admin: 04/26/17 17:41 Dose: 1 mg Sodium Chloride (Sodium Chloride 0.45%) 1,000 mls @ 40 mls/hr IV .Q24H [facility] Last Admin: 04/26/17 17:47 Dose: 40 mls/hr Multivitamins/Minerals (Therapeutic-M Tab) 1 tab PO DAILY [facility] Last Admin: 04/26/17 17:41 Dose: 1 tab Pneumococcal Polyvalent Vaccine (Pneumovax 23 Vaccine) 0.5 ml IM .ONCE ONE Stop: 04/28/17 10:01 Saliva Substitute (First Magic Mouthwash) 5 ml PO Q4H [facility] Last Admin: 04/27/17 02:31 Dose: 5 ml Fluticasone/Salmeterol (Advair Diskus 250/50) 1 puff INH RQ12 [facility] Valacyclovir HCl (Valtrex) 500 mg PO BID [facility] Last Admin: 04/26/17 17:41 Dose: 500 mg - Labs Labs: 04/27/17 07:15 04/27/17 07:15 - Constitutional Appears: No Acute Distress - Head Exam Head Exam: ATRAUMATIC, NORMOCEPHALIC - Respiratory Exam Respiratory Exam: NORMAL BREATHING PATTERN - Cardiovascular Exam Cardiovascular Exam: REGULAR RHYTHM - GI/Abdominal Exam GI & Abdominal Exam: Soft, Normal Bowel Sounds. absent: Tenderness - Extremities Exam Extremities Exam: absent: Pedal Edema Assessment and Plan (1) Oral ulcer Status: Acute (2) Pancytopenia Assessment & Plan: No evidence of GI blood loss at present. Stool occult blood pending, repeat Bone marrow biopsy to determine likely hematologic cause MDS, aplastic marrow, other. Status: Acute
--- NOTE | 2017-04-27 09:45 | PN ---
DATE: SUBJECTIVE: I saw Lilliam resting in bed. She slept whole night because of IV Lasix given to her for her status post 2 units of packed red blood cells, which her hemoglobin from 7 down to 6. She was continued on a regular diet because of the abscess from the mouth, so we gave her soft diet this morning. PHYSICAL EXAMINATION VITAL SIGNS: She has a 99.5 temperature, 84 pulse, 138/70 blood pressure, and 20 respiratory rate. HEENT: Head is atraumatic and normocephalic. Mouth is swollen. NECK: Supple. HEART: Regular rate. LUNGS: Decreased breath sounds, but clear. ABDOMEN: Soft. EXTREMITIES: Shows no edema. MEDICATIONS: She is currently on Advair, mouthwash, folic acid, Lovenox, Plavix, IV fluids, and Valtrex. LABORATORY DATA: She has 3.1 white count, 6.7 hemoglobin and 20.2 hematocrit, with 71 platelets. She has 136 sodium, potassium is 3.6, BUN is 39, creatinine is 1.8, which is better when she came in. Sugar is 84, calcium is 8.5, and total bilirubin is 3.2. GGT is 277, AST is 46, ALT is 29, and alkaline phosphatase is 319, and albumin is 3.5. Stool is negative. IMPRESSION AND PLAN: She was seen by Infectious Disease and at this time I do not think she needed intravenous antibiotics. She is on Valtrex for her shingles, also she is pancytopenic after her bone marrow transfusion, 1 dose of Neupogen, she is acutely anemic. She was seen by the street light servicer helper. She has a peripherally inserted central catheter line placement and hopefully she will continue to improve. We will check her labs tomorrow. Physical therapy will get her out of bed. Tyrell Maya DO [facility]
[2017-04-27] MEDS: Enoxaparin 30 mg Syringe SC SCH (10:00)
[2017-04-27] MEDS: Multivitamin With Minerals Tab PO SCH (10:00)
[2017-04-27 10:31] LABS: RBC URINE < 1 /hpf (0-3); URINE BILIRUBIN NEGATIVE (NEGATIVE); URINE BLOOD NEGATIVE (NEGATIVE); URINE COLOR Yellow (YELLOW); URINE GLUCOSE (UA) NORMAL (Normal); URINE KETONE NEGATIVE (NEGATIVE); URINE LEUKOCYTE ESTERASE 2+ Leu/uL (Negative); URINE PROTEIN NEGATIVE (NEGATIVE); URINE UROBILINOGEN NORMAL mg/dL (0.2-1.0); WBC URINE 87 /hpf (0-5)
[2017-04-28] MEDS: Mag&Al/Simet/Diphen/Lido 237 ML KIT PO SCH ×5 (02:18→17:44)
[2017-04-28 07:04] LABS: HEMATOCRIT 31.8 % (34.0-47.0); MEAN CELL VOLUME 96.9 fL (81.0-99.0); MEAN CORPUSCULAR HEMOGLOBIN 33.5 pg (27.0-31.0); MEAN CORPUSCULAR HGB CONC 34.6 g/dL (33.0-37.0); MEAN PLATELET VOLUME 7.7 fL (7.2-11.7); PLATELET COUNT 48 K/uL (130-400); RED CELL DISTRIBUTION WIDTH 15.7 % (11.5-14.5)
[2017-04-28 07:22] LABS: POTASSIUM 3.5 mmol/L (3.6-5.2)
[2017-04-28 07:22] LABS: WHITE BLOOD COUNT 1.2 K/uL (4.8-10.8)
[2017-04-28 07:24] LABS: BILIRUBIN,TOTAL 3.2 mg/dL (0.2-1.3)
[2017-04-28 07:25] LABS: ALB/GLOB RATIO 1.4 (1.0-2.1); CALCIUM 8.4 mg/dl (8.6-10.4); TOTAL PROTEIN 6.8 g/dL (6.3-8.3)
[2017-04-28] MEDS: Sodium Chloride 0.45% 1,000 ML IV SCH (07:30)
[2017-04-28] MEDS: Fluticasone-Salmeterol 250-50mcg Diskus INH SCH (08:00)
--- NOTE | 2017-04-28 09:39 | US ---
HISTORY: elevated LFT's COMPARISON: CT abdomen from 02/01/2016 and 01/13/2016 TECHNIQUE: Grayscale imaging was performed. FINDINGS: LIVER: Measures 16.5 cm. There are multiple variable sized echogenic foci throughout the liver and increased echogenicity of the liver parenchyma. No mass. No intrahepatic bile duct dilatation. GALLBLADDER: There are gallstones without wall thickening or pericholecystic fluid. The sonographic Burris's sign is negative. COMMON BILE DUCT: Measures 4.0 mm. No stones. No dilatation. PANCREAS: Unremarkable as visualized. No mass. No ductal dilatation. RIGHT KIDNEY: Measures 9.2cm. Normal echogenicity. There is a 4 mm nonobstructing stone in the upper pole and a 4 mm nonobstructing stone in the lower pole of the kidney. No mass, or hydronephrosis. LEFT KIDNEY: Measures 7.8cm. Normal echogenicity. There is a 3 mm nonobstructing stone in the lower pole of the kidney. No mass, or hydronephrosis. SPLEEN: Normal in size and contour. No mass. AORTA: No aneurysmal dilatation. IVC: Unremarkable. OTHER FINDINGS: None. IMPRESSION: 1. Hepatic steatosis. Multiple echogenic foci throughout the liver may represent biliary or portal venous air. CT scan of the abdomen with intravenous contrast is recommended for further evaluation. 2. Cholelithiasis. 3. Suspect nonobstructing stone in the kidneys. Important findings were discussed with the patient's nurse on 04/27/2017 in the a.m.
--- NOTE | 2017-04-28 09:46 | CP.PCM.PN ---
Subjective - Date & Time of Evaluation Date of Evaluation: 04/28/17 Time of Evaluation: 09:44 - Subjective Subjective: COVERING DR BROCK No bleeding or melena. Objective - Vital Signs/Intake and Output Vital Signs (last 24 hours): Temp Pulse Resp BP Pulse Ox 98.5 F 96 H 20 105/73 99 04/27/17 23:45 04/27/17 23:45 04/27/17 23:45 04/27/17 23:45 04/27/17 23:45 Intake and Output: 04/28/17 04/28/17 06:59 18:59 Intake Total 1260 Balance 1260 - Medications Medications: Current Medications Clopidogrel Bisulfate (Plavix) 75 mg PO DAILY [facility] Last Admin: 04/27/17 10:00 Dose: 75 mg Enoxaparin Sodium (Lovenox) 30 mg SC DAILY [facility] Last Admin: 04/27/17 10:00 Dose: 30 mg Ergocalciferol (Drisdol 50,000 Intl Units Cap) 1 cap PO QWK [facility] Last Admin: 04/26/17 17:41 Dose: 1 cap Folic Acid (Folic Acid) 1 mg PO DAILY [facility] Last Admin: 04/27/17 10:00 Dose: 1 mg Sodium Chloride (Sodium Chloride 0.45%) 1,000 mls @ 40 mls/hr IV .Q24H [facility] Last Admin: 04/27/17 07:30 Dose: 40 mls/hr Multivitamins/Minerals (Therapeutic-M Tab) 1 tab PO DAILY [facility] Last Admin: 04/27/17 10:00 Dose: 1 tab Pneumococcal Polyvalent Vaccine (Pneumovax 23 Vaccine) 0.5 ml IM .ONCE ONE Stop: 04/28/17 10:01 Saliva Substitute (First Magic Mouthwash) 5 ml PO Q4H [facility] Last Admin: 04/28/17 05:40 Dose: 5 ml Fluticasone/Salmeterol (Advair Diskus 250/50) 1 puff INH RQ12 [facility] Valacyclovir HCl (Valtrex) 500 mg PO BID [facility] Last Admin: 04/27/17 17:55 Dose: 500 mg - Labs Labs: 04/28/17 05:50 04/28/17 06:52 - Constitutional Appears: No Acute Distress - Respiratory Exam Respiratory Exam: NORMAL BREATHING PATTERN - Cardiovascular Exam Cardiovascular Exam: REGULAR RHYTHM - GI/Abdominal Exam GI & Abdominal Exam: Soft, Normal Bowel Sounds. absent: Tenderness - Extremities Exam Extremities Exam: Normal Inspection Assessment and Plan (1) Oral ulcer Assessment & Plan: Denies pain today Status: Acute (2) Pancytopenia Assessment & Plan: Awaiting hematology follow up for bone marrow biopsy No evidence of GI bleeding Stool occult blood pending. Status: Acute
[2017-04-28] MEDS ORDERED: Pneumococcal 23-Valent Vaccine IM ONE (10:00)
[2017-04-28] MEDS: Multivitamin With Minerals Tab PO SCH (10:00)
[2017-04-28] MEDS: Enoxaparin 30 mg Syringe SC SCH (10:00)
[2017-04-28 10:16] LABS: EOSINOPHIL 10 % (0-4); NEUTROPHIL 6 % (50-75); REACTIVE LYMPHOCYTES 8 % (0-0); TOTAL CELLS COUNTED 100
[2017-04-28] MEDS ORDERED: Iohexol 240 (50 ml) PO ONE ×2 (11:45→14:00)
--- NOTE | 2017-04-28 16:04 | CP.PCM.PN ---
Subjective - Date & Time of Evaluation Date of Evaluation: 04/28/17 Time of Evaluation: 09:00 - Subjective Subjective: pt now febrile and neutropenic denies cough chest pain or sob skin lesions same IV antibiotics added Objective - Vital Signs/Intake and Output Vital Signs (last 24 hours): Temp Pulse Resp BP Pulse Ox 101.7 F H 95 H 20 114/70 97 04/28/17 15:23 04/28/17 15:23 04/28/17 15:23 04/28/17 15:23 04/28/17 15:23 Intake and Output: 04/28/17 04/28/17 06:59 18:59 Intake Total 1260 Balance 1260 - Medications Medications: Current Medications Clopidogrel Bisulfate (Plavix) 75 mg PO DAILY [facility] Last Admin: 04/28/17 10:00 Dose: 75 mg Enoxaparin Sodium (Lovenox) 30 mg SC DAILY [facility] Last Admin: 04/28/17 10:00 Dose: 30 mg Ergocalciferol (Drisdol 50,000 Intl Units Cap) 1 cap PO QWK [facility] Last Admin: 04/26/17 17:41 Dose: 1 cap Folic Acid (Folic Acid) 1 mg PO DAILY [facility] Last Admin: 04/28/17 10:00 Dose: 1 mg Sodium Chloride (Sodium Chloride 0.45%) 1,000 mls @ 40 mls/hr IV .Q24H [facility] Last Admin: 04/28/17 07:30 Dose: 40 mls/hr Multivitamins/Minerals (Therapeutic-M Tab) 1 tab PO DAILY [facility] Last Admin: 04/28/17 10:00 Dose: 1 tab Saliva Substitute (First Magic Mouthwash) 5 ml PO Q4H [facility] Last Admin: 04/28/17 13:56 Dose: 5 ml Fluticasone/Salmeterol (Advair Diskus 250/50) 1 puff INH RQ12 [facility] Last Admin: 04/28/17 08:00 Dose: 1 puff Valacyclovir HCl (Valtrex) 500 mg PO BID [facility] Last Admin: 04/28/17 10:00 Dose: 500 mg - Labs Labs: 04/28/17 05:50 04/28/17 06:52 - Constitutional Appears: Non-toxic, Cachectic, Chronically Ill - Head Exam Head Exam: NORMOCEPHALIC - Eye Exam Eye Exam: PERRL. absent: Scleral icterus - ENT Exam ENT Exam: Mucous Membranes Dry - Neck Exam Neck Exam: absent: Lymphadenopathy - Respiratory Exam Respiratory Exam: Decreased Breath Sounds - Cardiovascular Exam Cardiovascular Exam: REGULAR RHYTHM - GI/Abdominal Exam GI & Abdominal Exam: Soft - Rectal Exam Rectal Exam: Deferred - Exam Exam: NORMAL INSPECTION Assessment and Plan (1) Pancytopenia Status: Acute (2) Renal insufficiency Status: Acute (3) ARF (acute renal failure) with tubular necrosis Status: Acute (4) Dehydration, severe Status: Acute
[2017-04-28] MEDS: Aztreonam 2 GM in Dextrose 5% In Water 100 ML IVPB SCH (17:38)
--- NOTE | 2017-04-28 17:56 | RAD ---
HISTORY: fever/ neutropenia COMPARISON: 04/25/2017 FINDINGS: LUNGS: The right PICC line terminates in the SVC. The lungs are hyperinflated and there is peribronchial thickening with chronic changes in both lungs. No focal consolidation. PLEURA: No significant pleural effusion identified, no pneumothorax apparent. CARDIOVASCULAR: Normal. OSSEOUS STRUCTURES: No significant abnormalities. VISUALIZED UPPER ABDOMEN: Normal. OTHER FINDINGS: None. IMPRESSION: No active pulmonary disease. COPD.
[2017-04-28] MEDS: Vancomycin 1 gm/NS 200 ml 1 GM/200 ML BAG IVPB SCH (18:00)
[2017-04-29] MEDS: Aztreonam 2 GM in Dextrose 5% In Water 100 ML IVPB SCH ×3 (00:58→17:23)
[2017-04-29] MEDS: Mag&Al/Simet/Diphen/Lido 237 ML KIT PO SCH ×6 (02:50→21:40)
[2017-04-29 07:26] LABS: POTASSIUM 3.4 mmol/L (3.6-5.2)
[2017-04-29 07:28] LABS: ALB/GLOB RATIO 1.3 (1.0-2.1); TOTAL PROTEIN 6.4 g/dL (6.3-8.3)
[2017-04-29 07:29] LABS: CALCIUM 8.1 mg/dl (8.6-10.4)
[2017-04-29 07:34] LABS: HEMATOCRIT 30.6 % (34.0-47.0); MEAN CELL VOLUME 97.3 fL (81.0-99.0); MEAN CORPUSCULAR HEMOGLOBIN 33.5 pg (27.0-31.0); MEAN CORPUSCULAR HGB CONC 34.5 g/dL (33.0-37.0); MEAN PLATELET VOLUME 7.9 fL (7.2-11.7); RED CELL DISTRIBUTION WIDTH 15.3 % (11.5-14.5)
[2017-04-29 07:41] LABS: WHITE BLOOD COUNT 1.9 K/uL (4.8-10.8)
[2017-04-29 08:23] LABS: RBC URINE 36 /hpf (0-3); URINE BACTERIA OCC (<OCC); URINE BILIRUBIN NEGATIVE (NEGATIVE); URINE BLOOD 3+ (NEGATIVE); URINE COLOR Amber (YELLOW); URINE GLUCOSE (UA) NORMAL (Normal); URINE KETONE NEGATIVE (NEGATIVE); URINE LEUKOCYTE ESTERASE 3+ Leu/uL (Negative); URINE PROTEIN 2+ mg/dL (NEGATIVE); URINE UROBILINOGEN NORMAL mg/dL (0.2-1.0); WBC URINE 225 /hpf (0-5)
[2017-04-29] MEDS ORDERED: Iohexol 240 (50 ml) PO ONE (09:30)
--- NOTE | 2017-04-29 10:16 | CP.PCM.PN ---
Subjective - Date & Time of Evaluation Date of Evaluation: 04/29/17 Time of Evaluation: 10:13 - Subjective Subjective: Patient complains of pain from mouth sores. She denies nausea, vomiting, abdominal pain. She had one loose stool over the weekend. Objective - Vital Signs/Intake and Output Vital Signs (last 24 hours): Temp Pulse Resp BP Pulse Ox 102.7 F H 99 H 20 131/72 97 04/29/17 00:57 04/29/17 00:00 04/29/17 00:00 04/29/17 00:00 04/29/17 00:00 Intake and Output: 04/29/17 04/29/17 06:59 18:59 Intake Total 830 360 Balance 830 360 - Medications Medications: Current Medications Clopidogrel Bisulfate (Plavix) 75 mg PO DAILY [facility] Last Admin: 04/28/17 10:00 Dose: 75 mg Enoxaparin Sodium (Lovenox) 30 mg SC DAILY [facility] Last Admin: 04/28/17 10:00 Dose: 30 mg Ergocalciferol (Drisdol 50,000 Intl Units Cap) 1 cap PO QWK [facility] Last Admin: 04/26/17 17:41 Dose: 1 cap Folic Acid (Folic Acid) 1 mg PO DAILY [facility] Last Admin: 04/28/17 10:00 Dose: 1 mg Sodium Chloride (Sodium Chloride 0.45%) 1,000 mls @ 40 mls/hr IV .Q24H [facility] Last Admin: 04/28/17 07:30 Dose: 40 mls/hr Aztreonam 2 gm/ Dextrose 100 mls @ 200 mls/hr IVPB Q8H [facility] Last Admin: 04/29/17 00:58 Dose: 200 mls/hr Vancomycin/Sodium Chloride (Vancomycin 1 Gm/Ns 200 Ml) 1 gm in 200 mls @ 133.333 mls/hr IVPB Q24H [facility] Stop: 05/03/17 17:01 Last Admin: 04/28/17 18:00 Dose: 133.333 mls/hr Multivitamins/Minerals (Therapeutic-M Tab) 1 tab PO DAILY [facility] Last Admin: 04/28/17 10:00 Dose: 1 tab Saliva Substitute (First Magic Mouthwash) 5 ml PO Q4H [facility] Last Admin: 04/29/17 05:53 Dose: 5 ml Fluticasone/Salmeterol (Advair Diskus 250/50) 1 puff INH RQ12 [facility] Last Admin: 04/28/17 08:00 Dose: 1 puff Valacyclovir HCl (Valtrex) 500 mg PO BID [facility] Last Admin: 04/28/17 17:38 Dose: 500 mg - Labs Labs: 04/29/17 06:57 04/29/17 06:57 - Constitutional Appears: No Acute Distress - Head Exam Head Exam: ATRAUMATIC, NORMOCEPHALIC - Eye Exam Eye Exam: EOMI, PERRL - Neck Exam Neck Exam: absent: Lymphadenopathy, Thyromegaly - Respiratory Exam Respiratory Exam: NORMAL BREATHING PATTERN. absent: Rales, Rhonchi, Wheezes - Cardiovascular Exam Cardiovascular Exam: REGULAR RHYTHM, +S1, +S2. absent: Gallop, Rubs, Murmur - GI/Abdominal Exam GI & Abdominal Exam: Soft, Normal Bowel Sounds. absent: Tenderness, Mass, Organomegaly - Rectal Exam Rectal Exam: Deferred - Extremities Exam Extremities Exam: absent: Calf Tenderness, Pedal Edema Assessment and Plan (1) Macrocytic anemia Assessment & Plan: Patient remains anemic, HGV now 10.6, but has profound neutropenia, total WBC 1.9 with 6% polys. She is currently on aztreonam, vancomycin and valacycolvir. She also has slight hyperbilirubinemia, TBILI 3.0, ALK 263 with GGT 277. Sonogram showed echogenic foci, ? air in biliary tree or portal venous system. CT scan has been ordered but not yet performed. Will follow LFTs and check CT scan. Status: Acute
--- NOTE | 2017-04-29 10:29 | PN ---
DATE: SUBJECTIVE: She is uncomfortable in bed. Her throat really hurts. She is not feeling well. She is now on antibiotics. PHYSICAL EXAMINATION: VITAL SIGNS: She has a 102.7 temp, 99 pulse, 131/72 blood pressure, 20 respiratory rate, 97% O2 sat on room air. HEENT: Head is atraumatic, normocephalic. Throat is swollen and has an abscess. HEART: Regular rate. LUNGS: Decreased breath sounds, but clear. ABDOMEN: Soft. EXTREMITIES: No edema. LABORATORY DATA: White count is 1.2 today, 11 hemoglobin, 31.8 hematocrit with 48 platelets. There is a 134 sodium, potassium is 3.5 and replaced the potassium. BUN is 35, creatinine 1.3, improving. GFR is 39, calcium is 8.4, total bili is 3.2, AST is 39, alk phos is 324, total protein 6.8. Stool occult blood was negative. MEDICATIONS: She is currently on Advair, aztreonam, Drisdol, Magic Mouthwash, folic acid, Lovenox, Plavix, IV fluids, multivitamins, Valtrex and vancomycin. ASSESSMENT AND PLAN: She is being seen by Infectious Disease, GI and Hematology/Oncology. I understand there is supposed to be a bone marrow ordered and now she is on IV antibiotics. We will check her labs tomorrow. Hopefully, she will improve. I do not think she needs to go to subacute rehabs and physical therapies at home with services unless something changes. I will encourage her to get out of bed to chair everyday and now that she is on the antibiotics we will see how she does. We will check her labs tomorrow. Tyrell Maya DO
[2017-04-29] MEDS: Enoxaparin 30 mg Syringe SC SCH (10:31)
[2017-04-29] MEDS: Multivitamin With Minerals Tab PO SCH (10:32)
--- NOTE | 2017-04-29 12:16 | CP.PCM.PN ---
Subjective - Date & Time of Evaluation Date of Evaluation: 04/29/17 Time of Evaluation: 06:00 - Subjective Subjective: febrile and neutropenic weak and c/o mouth pain seen by GI and CT Abd pending Objective - Vital Signs/Intake and Output Vital Signs (last 24 hours): Temp Pulse Resp BP Pulse Ox 98 F 74 20 131/72 97 04/29/17 08:00 04/29/17 08:00 04/29/17 08:00 04/29/17 00:00 04/29/17 08:00 Intake and Output: 04/29/17 04/29/17 06:59 18:59 Intake Total 830 360 Balance 830 360 - Medications Medications: Current Medications Clopidogrel Bisulfate (Plavix) 75 mg PO DAILY [facility] Last Admin: 04/29/17 10:28 Dose: 75 mg Enoxaparin Sodium (Lovenox) 30 mg SC DAILY [facility] Last Admin: 04/29/17 10:31 Dose: 30 mg Ergocalciferol (Drisdol 50,000 Intl Units Cap) 1 cap PO QWK [facility] Last Admin: 04/26/17 17:41 Dose: 1 cap Folic Acid (Folic Acid) 1 mg PO DAILY [facility] Last Admin: 04/29/17 10:31 Dose: 1 mg Sodium Chloride (Sodium Chloride 0.45%) 1,000 mls @ 40 mls/hr IV .Q24H [facility] Last Admin: 04/28/17 07:30 Dose: 40 mls/hr Aztreonam 2 gm/ Dextrose 100 mls @ 200 mls/hr IVPB Q8H [facility] Last Admin: 04/29/17 10:30 Dose: 200 mls/hr Vancomycin/Sodium Chloride (Vancomycin 1 Gm/Ns 200 Ml) 1 gm in 200 mls @ 133.333 mls/hr IVPB Q24H [facility] Stop: 05/03/17 17:01 Last Admin: 04/28/17 18:00 Dose: 133.333 mls/hr Multivitamins/Minerals (Therapeutic-M Tab) 1 tab PO DAILY [facility] Last Admin: 04/29/17 10:32 Dose: 1 tab Saliva Substitute (First Magic Mouthwash) 5 ml PO Q4H [facility] Last Admin: 04/29/17 10:28 Dose: 5 ml Fluticasone/Salmeterol (Advair Diskus 250/50) 1 puff INH RQ12 [facility] Last Admin: 04/28/17 08:00 Dose: 1 puff Valacyclovir HCl (Valtrex) 500 mg PO BID [facility] Last Admin: 04/29/17 10:37 Dose: 500 mg - Labs Labs: 04/29/17 06:57 04/29/17 06:57 - Constitutional Appears: Cachectic, Chronically Ill - Head Exam Head Exam: ATRAUMATIC, NORMOCEPHALIC - Eye Exam Eye Exam: PERRL - ENT Exam ENT Exam: Mucous Membranes Dry - Neck Exam Neck Exam: absent: Lymphadenopathy - Respiratory Exam Respiratory Exam: Decreased Breath Sounds - Cardiovascular Exam Cardiovascular Exam: REGULAR RHYTHM - GI/Abdominal Exam GI & Abdominal Exam: Distended, Soft. absent: Tenderness - Rectal Exam Rectal Exam: Deferred - Exam Exam: NORMAL INSPECTION - Extremities Exam Extremities Exam: absent: Pedal Edema - Back Exam Back Exam: absent: CVA tenderness (L), CVA tenderness (R) - Neurological Exam Neurological Exam: Alert, Awake, Oriented x3 - Psychiatric Exam Psychiatric exam: Depressed Assessment and Plan (1) Pancytopenia Status: Acute (2) Renal insufficiency Status: Acute (3) ARF (acute renal failure) with tubular necrosis Status: Acute (4) Dehydration, severe Status: Acute - Assessment and Plan (Free Text) Assessment: r/o leukemia await heme eval cont empiric iv antibiotics
[2017-04-29] MEDS ORDERED: Lidocaine 2% Inj (20ml) IV ONE (15:52)
[2017-04-29 17:23] LABS: ALB/GLOB RATIO 1.4 (1.0-2.1); BILIRUBIN,DIRECT 1.8 mg/dL (0.0-0.4); BILIRUBIN,TOTAL 2.1 mg/dL (0.2-1.3); TOTAL PROTEIN 6.2 g/dL (6.3-8.3)
[2017-04-29] MEDS: Vancomycin 1 gm/NS 200 ml 1 GM/200 ML BAG IVPB SCH (17:30)
[2017-04-29] MEDS ORDERED: Lidocaine 2% Inj (20ml) ONE (17:38)
--- NOTE | 2017-04-29 18:31 | CP.PCM.PN ---
Subjective - Date & Time of Evaluation Date of Evaluation: 04/29/17 Time of Evaluation: 18:29 - Subjective Subjective: Patient having fevers, mouth sores, WBC count dropping. No n,v, diarrhea. Procedure note- Patient had bone marrow biopsy under local anesthesia, rt. iliac crest. Consent obtained, patient tolerated procedure well Objective - Vital Signs/Intake and Output Vital Signs (last 24 hours): Temp Pulse Resp BP Pulse Ox 98.3 F 85 20 111/73 99 04/29/17 15:05 04/29/17 15:05 04/29/17 15:05 04/29/17 15:05 04/29/17 15:05 Intake and Output: 04/29/17 04/29/17 06:59 18:59 Intake Total 830 360 Balance 830 360 - Medications Medications: Current Medications Clopidogrel Bisulfate (Plavix) 75 mg PO [facility]ILY [facility] Last Admin: 04/29/17 10:28 Dose: 75 mg Enoxaparin Sodium (Lovenox) 30 mg SC DAILY [facility] Last Admin: 04/29/17 10:31 Dose: 30 mg Ergocalciferol (Drisdol 50,000 Intl Units Cap) 1 cap PO QWK [facility] Last Admin: 04/26/17 17:41 Dose: 1 cap Folic Acid (Folic Acid) 1 mg PO DAILY [facility] Last Admin: 04/29/17 10:31 Dose: 1 mg Sodium Chloride (Sodium Chloride 0.45%) 1,000 mls @ 40 mls/hr IV .Q24H [facility] Last Admin: 04/28/17 07:30 Dose: 40 mls/hr Aztreonam 2 gm/ Dextrose 100 mls @ 200 mls/hr IVPB Q8H [facility] Last Admin: 04/29/17 17:23 Dose: 200 mls/hr Vancomycin/Sodium Chloride (Vancomycin 1 Gm/Ns 200 Ml) 1 gm in 200 mls @ 133.333 mls/hr IVPB Q24H [facility] Stop: 05/03/17 17:01 Last Admin: 04/29/17 17:30 Dose: 133.333 mls/hr Morphine Sulfate (Morphine) 2 mg IVP Q4 PRN PRN Reason: Pain, moderate (4-7) Last Admin: 04/29/17 17:37 Dose: 2 mg Multivitamins/Minerals (Therapeutic-M Tab) 1 tab PO DAILY [facility] Last Admin: 04/29/17 10:32 Dose: 1 tab Saliva Substitute (First Magic Mouthwash) 5 ml PO Q4H [facility] Last Admin: 04/29/17 17:30 Dose: 5 ml Fluticasone/Salmeterol (Advair Diskus 250/50) 1 puff INH RQ12 [facility] Last Admin: 04/28/17 08:00 Dose: 1 puff Valacyclovir HCl (Valtrex) 500 mg PO BID [facility] Last Admin: 04/29/17 17:30 Dose: 500 mg - Labs Labs: 04/29/17 06:57 04/29/17 06:57 Assessment and Plan (1) Pancytopenia Assessment & Plan: Pancytopenia, atypical lymphs in periphery, r/o myeloproliferative disorder, acute leukemia Will check coags and fibrinogen, R/O DIC Await results of marrow Status: Acute
[2017-04-29] MEDS: Sodium Chloride 0.45% 1,000 ML IV SCH (21:40)
--- NOTE | 2017-04-29 22:14 | CT ---
EXAM: CT Abdomen and Pelvis With Intravenous Contrast CLINICAL HISTORY: 82 years old, female; Signs and symptoms; Other: As per uls TECHNIQUE: Axial computed tomography images of the abdomen and pelvis with intravenous contrast. All CT scans at this facility use one or more dose reduction techniques, viz.: automated exposure control; ma/kV adjustment per patient size (including targeted exams where dose is matched to indication; i.e. head); or iterative reconstruction technique. COMPARISON: CT - ABD PELVIS PO CONTRAST ONLY 2015-06-18 21:46 FINDINGS: Lower thorax: The bilateral lung bases are clear. ABDOMEN: Liver: No acute findings. No portal venous gas or biliary gas on the current examination. Gallbladder and bile ducts: The gallbladder is moderately distended. No intra-extrahepatic biliary ductal dilation. Pancreas: Limited evaluation secondary to the lack of intravenous contrast. Spleen: No acute findings. Adrenals: No acute findings. Kidneys and ureters: No obstructing stones. No hydronephrosis. Multiple 1-2 mm nonobstructing stones within the right kidney. A 5 mm nonobstructing stone within the left kidney. PELVIS: Bladder: Air within the bladder, suggesting recent instrumentation versus infection, for which clinical correlation is needed. Reproductive: The uterus is atrophic or surgically absent. Appendix: The appendix is of normal-caliber (series 3, image 116). ABDOMEN and PELVIS: Stomach and bowel: No acute findings. Mural thickening of the rectum, similar to examination performed 06/18/2015. Peritoneum: No acute findings. Lymph nodes: Limited evaluation without intravenous contrast. Vasculature: No aortic aneurysm. Calcified atherosclerotic disease. Bones: No acute fracture. IMPRESSION: No portal venous or biliary gas on the current examination. Moderate gallbladder distention. Air within the bladder, suggesting recent instrumentation versus infection, for which clinical correlation is needed. Bilateral nonobstructing renal calculi.
[2017-04-30] MEDS: Aztreonam 2 GM in Dextrose 5% In Water 100 ML IVPB SCH ×3 (01:15→17:23)
[2017-04-30] MEDS: Mag&Al/Simet/Diphen/Lido 237 ML KIT PO SCH ×6 (02:57→22:17)
[2017-04-30] MEDS: Sodium Chloride 0.45% 1,000 ML IV SCH (08:16)
[2017-04-30 08:38] LABS: HEMATOCRIT 29.7 % (34.0-47.0); MEAN CORPUSCULAR HEMOGLOBIN 32.8 pg (27.0-31.0); MEAN CORPUSCULAR HGB CONC 33.9 g/dL (33.0-37.0); MEAN PLATELET VOLUME 8.5 fL (7.2-11.7); RED CELL DISTRIBUTION WIDTH 15.1 % (11.5-14.5)
[2017-04-30 08:43] LABS: WHITE BLOOD COUNT 1.1 K/uL (4.8-10.8)
[2017-04-30 08:51] LABS: POTASSIUM 3.8 mmol/L (3.6-5.2)
[2017-04-30 08:53] LABS: ALB/GLOB RATIO 1.4 (1.0-2.1); BILIRUBIN,TOTAL 1.8 mg/dL (0.2-1.3); CALCIUM 8.3 mg/dl (8.6-10.4); TOTAL PROTEIN 6.1 g/dL (6.3-8.3)
[2017-04-30] MEDS: Enoxaparin 30 mg Syringe SC SCH (10:04)
[2017-04-30] MEDS: Multivitamin With Minerals Tab PO SCH (10:04)
[2017-04-30] MEDS: Metoprolol Succinate 12.5 mg XL PO SCH ×2 (10:40→17:23)
--- NOTE | 2017-04-30 10:55 | PN ---
DATE: SUBJECTIVE: I saw Lilliam resting comfortably in bed. Tells me she has not been getting out of bed everyday. She understands that I will call physical therapy back again. PHYSICAL EXAMINATION: VITAL SIGNS: She had a temp of 100.2, pulse is 95, 123/65 blood pressure, 20 respiratory rate, 97% O2 sat on 2 L nasal cannula. HEENT: Head is atraumatic, normocephalic. Her throat is very sore with abscess and very upset about the throat, is on Magic Mouthwash right now. HEART: Regular rate. LUNGS: Decreased breath sounds but clear. ABDOMEN: Soft, obese, nontender. EXTREMITIES: No edema. MEDICATIONS: She is currently on Advair, aztreonam, Drisdol, Magic Mouthwash, folic acid, Lovenox, morphine as needed, Plavix, IV fluids, multivitamins, Valtrex, and vancomycin. LABORATORY DATA: She has 132 sodium, potassium was 3.4 yesterday, we replaced potassium, waiting for labs to come back today, 39 BUN and creatinine 1.3, better. Total bilirubin is 2.1, direct bilirubin is 1.8, GGT is 277, AST is better at 25, ALT is better at 29, alkaline phosphatase is 261, total protein 6.2. White count is 1.9, better than 1.2, 10.6 hemoglobin, 30.6 hematocrit with 39 platelets with pancytopenia. I understand awaiting for a bone marrow to respond, waiting for the results. She is on IV antibiotics. She is to get physical therapy and get out of bed everyday. I will check her labs tomorrow as per Hematology, Oncology, Infectious Diseases, and GI. Continue with aggressive treatment and care, might need subacute rehab. Tyrell Maya DO
--- NOTE | 2017-04-30 11:27 | CP.PCM.PN ---
Subjective - Date & Time of Evaluation Date of Evaluation: 04/30/17 Time of Evaluation: 07:00 - Subjective Subjective: events noted iv rx in progress await bm bx Objective - Vital Signs/Intake and Output Vital Signs (last 24 hours): Temp Pulse Resp BP Pulse Ox 100.4 F H 97 H 21 135/79 98 04/30/17 10:43 04/30/17 10:43 04/30/17 07:00 04/30/17 07:00 04/30/17 07:00 Intake and Output: 04/30/17 04/30/17 06:59 18:59 Intake Total 760 Balance 760 - Medications Medications: Current Medications Acetaminophen (Tylenol 325mg Tab) 650 mg PO Q4 PRN PRN Reason: Fever >100.4 F Last Admin: 04/30/17 10:41 Dose: 650 mg Clopidogrel Bisulfate (Plavix) 75 mg PO DAILY [facility] Last Admin: 04/30/17 10:03 Dose: 75 mg Enoxaparin Sodium (Lovenox) 30 mg SC DAILY [facility] Last Admin: 04/30/17 10:04 Dose: 30 mg Ergocalciferol (Drisdol 50,000 Intl Units Cap) 1 cap PO QWK [facility] Last Admin: 04/26/17 17:41 Dose: 1 cap Folic Acid (Folic Acid) 1 mg PO DAILY [facility] Last Admin: 04/30/17 10:04 Dose: 1 mg Sodium Chloride (Sodium Chloride 0.45%) 1,000 mls @ 40 mls/hr IV .Q24H [facility] Last Admin: 04/30/17 08:16 Dose: Not Given Aztreonam 2 gm/ Dextrose 100 mls @ 200 mls/hr IVPB Q8H [facility] Last Admin: 04/30/17 10:00 Dose: 200 mls/hr Vancomycin/Sodium Chloride (Vancomycin 1 Gm/Ns 200 Ml) 1 gm in 200 mls @ 133.333 mls/hr IVPB Q24H [facility] Stop: 05/03/17 17:01 Last Admin: 04/29/17 17:30 Dose: 133.333 mls/hr Metoprolol Succinate (Toprol Xl) 12.5 mg PO BID [facility] Last Admin: 04/30/17 10:40 Dose: 12.5 mg Morphine Sulfate (Morphine) 2 mg IVP Q4 PRN PRN Reason: Pain, moderate (4-7) Last Admin: 04/29/17 17:37 Dose: 2 mg Multivitamins/Minerals (Therapeutic-M Tab) 1 tab PO DAILY [facility] Last Admin: 04/30/17 10:04 Dose: 1 tab Saliva Substitute (First Magic Mouthwash) 5 ml PO Q4H [facility] Last Admin: 04/30/17 10:04 Dose: 5 ml Fluticasone/Salmeterol (Advair Diskus 250/50) 1 puff INH RQ12 [facility] Last Admin: 04/28/17 08:00 Dose: 1 puff Valacyclovir HCl (Valtrex) 500 mg PO BID [facility] Last Admin: 04/30/17 10:04 Dose: 500 mg - Labs Labs: 04/30/17 08:13 04/30/17 08:13 - Constitutional Appears: Chronically Ill - Head Exam Head Exam: NORMOCEPHALIC - Eye Exam Eye Exam: PERRL - ENT Exam ENT Exam: Mucous Membranes Dry - Neck Exam Neck Exam: absent: Lymphadenopathy - Respiratory Exam Respiratory Exam: Decreased Breath Sounds - Cardiovascular Exam Cardiovascular Exam: REGULAR RHYTHM - GI/Abdominal Exam GI & Abdominal Exam: Distended - Rectal Exam Rectal Exam: Deferred - Exam Exam: NORMAL INSPECTION - Extremities Exam Extremities Exam: absent: Pedal Edema - Back Exam Back Exam: absent: CVA tenderness (L), CVA tenderness (R) Assessment and Plan (1) Pancytopenia Status: Acute (2) Renal insufficiency Status: Acute (3) ARF (acute renal failure) with tubular necrosis Status: Acute (4) Dehydration, severe Status: Acute
[2017-04-30] MEDS: Vancomycin 1 gm/NS 200 ml 1 GM/200 ML BAG IVPB SCH (17:24)
--- NOTE | 2017-04-30 18:54 | CP.PCM.PN ---
Subjective - Date & Time of Evaluation Date of Evaluation: 04/30/17 Time of Evaluation: 18:45 - Subjective Subjective: The patient remains weak, febrile, mouth sores,poor PO intake. Very reluctant to get coags done. Urine dark with 3+blood. Have discussed with patient the possibility of a bone marrow disorder with bleeding, and the importance of checking her coags, she remains adamant about no further labs. Objective - Vital Signs/Intake and Output Vital Signs (last 24 hours): Temp Pulse Resp BP Pulse Ox 98.4 F 82 20 149/79 98 04/30/17 15:31 04/30/17 15:31 04/30/17 15:31 04/30/17 15:31 04/30/17 15:31 Intake and Output: 04/30/17 04/30/17 06:59 18:59 Intake Total 760 600 Balance 760 600 - Medications Medications: Current Medications Acetaminophen (Tylenol 325mg Tab) 650 mg PO Q4 PRN PRN Reason: Fever >100.4 F Last Admin: 04/30/17 10:41 Dose: 650 mg Enoxaparin Sodium (Lovenox) 30 mg SC DAILY [facility] Last Admin: 04/30/17 10:04 Dose: 30 mg Ergocalciferol (Drisdol 50,000 Intl Units Cap) 1 cap PO QWK [facility] Last Admin: 04/26/17 17:41 Dose: 1 cap Folic Acid (Folic Acid) 1 mg PO DAILY [facility] Last Admin: 04/30/17 10:04 Dose: 1 mg Sodium Chloride (Sodium Chloride 0.45%) 1,000 mls @ 40 mls/hr IV .Q24H [facility] Last Admin: 04/30/17 08:16 Dose: Not Given Aztreonam 2 gm/ Dextrose 100 mls @ 200 mls/hr IVPB Q8H [facility] Last Admin: 04/30/17 17:23 Dose: 200 mls/hr Vancomycin/Sodium Chloride (Vancomycin 1 Gm/Ns 200 Ml) 1 gm in 200 mls @ 133.333 mls/hr IVPB Q24H [facility] Stop: 05/03/17 17:01 Last Admin: 04/30/17 17:24 Dose: 133.333 mls/hr Metoprolol Succinate (Toprol Xl) 12.5 mg PO BID [facility] Last Admin: 11/14/17 17:23 Dose: 12.5 mg Morphine Sulfate (Morphine) 2 mg IVP Q4 PRN PRN Reason: Pain, moderate (4-7) Last Admin: 04/29/17 17:37 Dose: 2 mg Multivitamins/Minerals (Therapeutic-M Tab) 1 tab PO DAILY [facility] Last Admin: 04/30/17 10:04 Dose: 1 tab Saliva Substitute (First Magic Mouthwash) 5 ml PO Q4H [facility] Last Admin: 04/30/17 14:01 Dose: 5 ml Fluticasone/Salmeterol (Advair Diskus 250/50) 1 puff INH RQ12 [facility] Last Admin: 04/28/17 08:00 Dose: 1 puff Valacyclovir HCl (Valtrex) 500 mg PO BID [facility] Last Admin: 04/30/17 17:23 Dose: 500 mg - Labs Labs: 04/30/17 08:13 04/30/17 08:13 Assessment and Plan (1) Pancytopenia Assessment & Plan: 82 yo woman with acute thrombocytopenia, pancytopenia, neutropenic fever R/O bone marrow infiltrative disorder(acute leukemia, ??acute promyelocytic leukemia )Will give Vitamin K Bone marrow flow still pending. Will need platelet transfusion, Vitamin K, FFPs if coags are elevated. Status: Acute
[2017-04-30] MEDS ORDERED: Phytonadione 10 mg/ml Inj (Adult) IV STA (18:59)
[2017-05-01] MEDS: Aztreonam 2 GM in Dextrose 5% In Water 100 ML IVPB SCH ×3 (01:00→17:04)
[2017-05-01] MEDS: Mag&Al/Simet/Diphen/Lido 237 ML KIT PO SCH ×6 (02:44→22:25)
[2017-05-01] MEDS: Metoprolol Succinate 12.5 mg XL PO SCH ×2 (09:54→17:05)
[2017-05-01] MEDS: Multivitamin With Minerals Tab PO SCH (09:54)
[2017-05-01] MEDS: Sodium Chloride 0.45% 1,000 ML IV SCH ×2 (10:20→10:26)
--- NOTE | 2017-05-01 11:38 | PN ---
DATE: SUBJECTIVE: I see her resting in bed again. Apparently, she has not been out of the bed for 5 days. I taught her how to get out of the bed and work with physical therapy, discussed with the nurse, need to get her out of bed everyday and it is not happening. She is currently on IV fluids, Advair, Azactam, vitamin D, Magic Mouthwash, folic acid, lidocaine, Lovenox, morphine, multivitamin, Toprol, Tylenol, Valtrex, vancomycin and vitamin K. PHYSICAL EXAMINATION: GENERAL: She is alert. She is eating some, bad mouth, I called ENT. VITAL SIGNS: She is still having temperature is 100.3, 97 pulse, 141/70 blood pressure, 20 respiratory rate, and 97% O2 sat on room air. HEENT: Head is atraumatic, normocephalic. Throat is sore, cannot swallow well, very sore. HEART: Regular rate. LUNGS: Decreased breath sounds, but clear. ABDOMEN: Soft. EXTREMITIES: No edema and I got her get her out of bed. LABORATORY DATA: She had 1.1 white count, 10 hemoglobin, 28 hematocrit, platelets is pancytopenic. Sodium 132, potassium 3.8, BUN is 41, creatinine 1.3, GFR is 39, total bilirubin is 1.8, AST is 27, ALT is 29, alkaline phosphatase is 234, total protein 6.1. ASSESSMENT AND PLAN: She is being seen by Hematology/Oncology, Infectious Disease, and Gastroenterology. I also called in ear, nose and throat to look at the throat. I also think she might need to go to subacute rehab. We will continue with aggressive treatment and care, as per Hematology/Oncology bone marrow, and IV antibiotic by Infectious Disease. We will get ear, nose and throat for the throat issues, and she might need to go to subacute rehab. Tyrell Maya DO MTDD
[2017-05-01 12:59] LABS: COLD HEMAGGLUTININS None Detected titer (None Detected)
--- NOTE | 2017-05-01 17:27 | CP.PCM.PN ---
Subjective - Date & Time of Evaluation Date of Evaluation: 05/01/17 Time of Evaluation: 09:00 - Subjective Subjective: febrile despite vanco/azactam iv mycamine added poor prognosis Objective - Vital Signs/Intake and Output Vital Signs (last 24 hours): Temp Pulse Resp BP Pulse Ox 100.3 F H 88 20 138/81 95 05/01/17 15:00 05/01/17 15:00 05/01/17 15:00 05/01/17 15:00 05/01/17 15:00 Intake and Output: 05/01/17 05/01/17 06:59 18:59 Intake Total 226 370 Balance 226 370 - Medications Medications: Current Medications Acetaminophen (Tylenol 325mg Tab) 650 mg PO Q4 PRN PRN Reason: Fever >100.4 F Last Admin: 04/30/17 22:58 Dose: 650 mg Enoxaparin Sodium (Lovenox) 30 mg SC DAILY [facility] Last Admin: 04/30/17 10:04 Dose: 30 mg Ergocalciferol (Drisdol 50,000 Intl Units Cap) 1 cap PO QWK [facility] Last Admin: 04/26/17 17:41 Dose: 1 cap Folic Acid (Folic Acid) 1 mg PO DAILY [facility] Last Admin: 05/01/17 09:54 Dose: 1 mg Sodium Chloride (Sodium Chloride 0.45%) 1,000 mls @ 40 mls/hr IV .Q24H [facility] Last Admin: 05/01/17 10:26 Dose: Not Given Aztreonam 2 gm/ Dextrose 100 mls @ 200 mls/hr IVPB Q8H [facility] Last Admin: 05/01/17 17:04 Dose: 200 mls/hr Vancomycin/Sodium Chloride (Vancomycin 1 Gm/Ns 200 Ml) 1 gm in 200 mls @ 133.333 mls/hr IVPB Q24H [facility] Stop: 05/07/17 18:01 Metoprolol Succinate (Toprol Xl) 12.5 mg PO BID [facility] Last Admin: 05/01/17 17:05 Dose: 12.5 mg Morphine Sulfate (Morphine) 2 mg IVP Q4 PRN PRN Reason: Pain, moderate (4-7) Last Admin: 04/29/17 17:37 Dose: 2 mg Multivitamins/Minerals (Therapeutic-M Tab) 1 tab PO DAILY [facility] Last Admin: 05/01/17 09:54 Dose: 1 tab Mupirocin (Bactroban Ointment) 0 gm TOP BID [facility] Last Admin: 05/01/17 17:04 Dose: 1 applic Mupirocin (Bactroban Ointment) 0 gm TOP DAILY [facility] Saliva Substitute (First Magic Mouthwash) 5 ml PO Q4H [facility] Last Admin: 05/01/17 14:36 Dose: 5 ml Fluticasone/Salmeterol (Advair Diskus 250/50) 1 puff INH RQ12 [facility] Last Admin: 04/28/17 08:00 Dose: 1 puff Valacyclovir HCl (Valtrex) 500 mg PO BID [facility] Last Admin: 05/01/17 17:05 Dose: 500 mg - Labs Labs: 04/30/17 08:13 04/30/17 08:13 - Constitutional Appears: Cachectic, Chronically Ill - Head Exam Head Exam: NORMOCEPHALIC - Eye Exam Eye Exam: absent: Scleral icterus - ENT Exam ENT Exam: Mucous Membranes Dry - Neck Exam Neck Exam: absent: Lymphadenopathy - Respiratory Exam Respiratory Exam: Decreased Breath Sounds - Cardiovascular Exam Cardiovascular Exam: Tachycardia, REGULAR RHYTHM, +S1, +S2 - GI/Abdominal Exam GI & Abdominal Exam: Distended Assessment and Plan (1) Pancytopenia Status: Acute (2) Renal insufficiency Status: Acute (3) ARF (acute renal failure) with tubular necrosis Status: Acute (4) Dehydration, severe Status: Acute
--- NOTE | 2017-05-01 17:39 | CP.PCM.PN ---
Subjective - Date & Time of Evaluation Date of Evaluation: 05/01/17 Time of Evaluation: 17:26 - Subjective Subjective: The patient is weak, unable to tolerate PO, very reluctant to eat soft/liquid food, because it rasmussen her mouth. She is very reluctant to get any labs work done. Have told patient about iv Morphine prior to eating with the magic mouthwash, but the patient has been unable to eat. She denies any bleeding, no bruising or ecchymoses. Objective - Vital Signs/Intake and Output Vital Signs (last 24 hours): Temp Pulse Resp BP Pulse Ox 100.3 F H 88 20 138/81 95 05/01/17 15:00 05/01/17 15:00 05/01/17 15:00 05/01/17 15:00 05/01/17 15:00 Intake and Output: 05/01/17 05/01/17 06:59 18:59 Intake Total 226 370 Balance 226 370 - Medications Medications: Current Medications Acetaminophen (Tylenol 325mg Tab) 650 mg PO Q4 PRN PRN Reason: Fever >100.4 F Last Admin: 04/30/17 22:58 Dose: 650 mg Enoxaparin Sodium (Lovenox) 30 mg SC DAILY [facility] Last Admin: 04/30/17 10:04 Dose: 30 mg Ergocalciferol (Drisdol 50,000 Intl Units Cap) 1 cap PO QWK [facility] Last Admin: 04/26/17 17:41 Dose: 1 cap Folic Acid (Folic Acid) 1 mg PO DAILY [facility] Last Admin: 05/01/17 09:54 Dose: 1 mg Sodium Chloride (Sodium Chloride 0.45%) 1,000 mls @ 40 mls/hr IV .Q24H [facility] Last Admin: 05/01/17 10:26 Dose: Not Given Aztreonam 2 gm/ Dextrose 100 mls @ 200 mls/hr IVPB Q8H [facility] Last Admin: 05/01/17 17:04 Dose: 200 mls/hr Vancomycin/Sodium Chloride (Vancomycin 1 Gm/Ns 200 Ml) 1 gm in 200 mls @ 133.333 mls/hr IVPB Q24H [facility] Stop: 05/07/17 18:01 Metoprolol Succinate (Toprol Xl) 12.5 mg PO BID [facility] Last Admin: 05/01/17 17:05 Dose: 12.5 mg Morphine Sulfate (Morphine) 2 mg IVP Q4 PRN PRN Reason: Pain, moderate (4-7) Last Admin: 04/29/17 17:37 Dose: 2 mg Multivitamins/Minerals (Therapeutic-M Tab) 1 tab PO DAILY [facility] Last Admin: 05/01/17 09:54 Dose: 1 tab Mupirocin (Bactroban Ointment) 0 gm TOP BID [facility] Last Admin: 05/01/17 17:04 Dose: 1 applic Mupirocin (Bactroban Ointment) 0 gm TOP DAILY [facility] Saliva Substitute (First Magic Mouthwash) 5 ml PO Q4H [facility] Last Admin: 05/01/17 14:36 Dose: 5 ml Fluticasone/Salmeterol (Advair Diskus 250/50) 1 puff INH RQ12 [facility] Last Admin: 04/28/17 08:00 Dose: 1 puff Valacyclovir HCl (Valtrex) 500 mg PO BID [facility] Last Admin: 05/01/17 17:05 Dose: 500 mg - Labs Labs: 04/30/17 08:13 04/30/17 08:13 Assessment and Plan (1) Pancytopenia Assessment & Plan: 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 Await bone marrow path. Will request TCR rearrangement testing to determine clonality of LGLs. Any response to Neupogen or platelet transfusion cannot be determined because of patient's reluctance to have lab testing. Will recall IR to see if PICC line can be evaluated for cathflo to get blood return. Will encourage patient to take PO liquids and Ensure Status: Acute
[2017-05-01 17:40] LABS: BASO % 0.5 % (0.0-2.0); EOS # 0.1 K/uL (0.0-0.7); HEMATOCRIT 27.9 % (34.0-47.0); LYMPH # 0.9 K/uL (1.0-4.3); LYMPH % 78.4 % (20.0-40.0); MEAN CELL VOLUME 97.7 fL (81.0-99.0); MEAN CORPUSCULAR HEMOGLOBIN 32.7 pg (27.0-31.0); MEAN CORPUSCULAR HGB CONC 33.5 g/dL (33.0-37.0); MEAN PLATELET VOLUME 8.3 fL (7.2-11.7); MONO % 2.5 % (0.0-10.0); NRBC % 0.2 % (0.0-2.0); PLATELET COUNT 46 K/uL (130-400); RED CELL DISTRIBUTION WIDTH 15.1 % (11.5-14.5)
[2017-05-01 17:46] LABS: WHITE BLOOD COUNT 1.1 K/uL (4.8-10.8)
[2017-05-01 17:55] LABS: INR 1.2
--- NOTE | 2017-05-01 18:01 | CP.PCM.PN ---
Subjective - Date & Time of Evaluation Date of Evaluation: 05/01/17 Time of Evaluation: 17:59 Objective - Vital Signs/Intake and Output Vital Signs (last 24 hours): Temp Pulse Resp BP Pulse Ox 100.3 F H 88 20 138/81 95 05/01/17 15:00 05/01/17 15:00 05/01/17 15:00 05/01/17 15:00 05/01/17 15:00 Intake and Output: 05/01/17 05/01/17 06:59 18:59 Intake Total 226 370 Balance 226 370 - Medications Medications: Current Medications Acetaminophen (Tylenol 325mg Tab) 650 mg PO Q4 PRN PRN Reason: Fever >100.4 F Last Admin: 04/30/17 22:58 Dose: 650 mg Enoxaparin Sodium (Lovenox) 30 mg SC DAILY [facility] Last Admin: 04/30/17 10:04 Dose: 30 mg Ergocalciferol (Drisdol 50,000 Intl Units Cap) 1 cap PO QWK [facility] Last Admin: 04/26/17 17:41 Dose: 1 cap Folic Acid (Folic Acid) 1 mg PO DAILY [facility] Last Admin: 05/01/17 09:54 Dose: 1 mg Sodium Chloride (Sodium Chloride 0.45%) 1,000 mls @ 40 mls/hr IV .Q24H [facility] Last Admin: 05/01/17 10:26 Dose: Not Given Aztreonam 2 gm/ Dextrose 100 mls @ 200 mls/hr IVPB Q8H [facility] Last Admin: 05/01/17 17:04 Dose: 200 mls/hr Vancomycin/Sodium Chloride (Vancomycin 1 Gm/Ns 200 Ml) 1 gm in 200 mls @ 133.333 mls/hr IVPB Q24H [facility] Stop: 05/07/17 18:01 Micafungin Sodium 100 mg/ (Sodium Chloride) 100 mls @ 100 mls/hr IV Q24H [facility] Metoprolol Succinate (Toprol Xl) 12.5 mg PO BID [facility] Last Admin: 05/01/17 17:05 Dose: 12.5 mg Morphine Sulfate (Morphine) 2 mg IVP Q4 PRN PRN Reason: Pain, moderate (4-7) Last Admin: 04/29/17 17:37 Dose: 2 mg Multivitamins/Minerals (Therapeutic-M Tab) 1 tab PO DAILY [facility] Last Admin: 05/01/17 09:54 Dose: 1 tab Mupirocin (Bactroban Ointment) 0 gm TOP BID [facility] Last Admin: 05/01/17 17:04 Dose: 1 applic Mupirocin (Bactroban Ointment) 0 gm TOP DAILY [facility] Saliva Substitute (First Magic Mouthwash) 5 ml PO Q4H [facility] Last Admin: 05/01/17 14:36 Dose: 5 ml Fluticasone/Salmeterol (Advair Diskus 250/50) 1 puff INH RQ12 [facility] Last Admin: 04/28/17 08:00 Dose: 1 puff Valacyclovir HCl (Valtrex) 500 mg PO BID [facility] Last Admin: 05/01/17 17:05 Dose: 500 mg - Labs Labs: 05/01/17 17:25 04/30/17 08:13 PT 13.9 SECONDS (9.7-12.2) H 05/01/17 17:32 INR 1.2 05/01/17 17:32 APTT 25 SECONDS (21-34) 05/01/17 17:32 Assessment and Plan (1) Pancytopenia Status: Acute
[2017-05-01 18:06] LABS: ALB/GLOB RATIO 1.3 (1.0-2.1); ALKALINE PHOSPHATASE 215 U/L (38-126); ALT/SGPT 44 U/L (9-52); AST/SGOT 45 U/L (14-36); BILIRUBIN,TOTAL 1.6 mg/dL (0.2-1.3); BLOOD UREA NITROGEN 35 mg/dL (7-17); CALCIUM 8.4 mg/dl (8.6-10.4); CARBON DIOXIDE 26 mmol/L (22-30); CHLORIDE 100 mmol/L (98-107); GFR AFRICAN-AMERICAN > 60; GLUCOSE,RANDOM 102 mg/dL (65-105); POTASSIUM 3.8 mmol/L (3.6-5.2); SODIUM 136 mmol/L (132-148); TOTAL PROTEIN 6.4 g/dL (6.3-8.3)
[2017-05-01] MEDS: Vancomycin 1 gm/NS 200 ml 1 GM/200 ML BAG IVPB SCH (18:17)
[2017-05-01 18:21] LABS: EOSINOPHIL 10 % (0-4); NEUTROPHIL 6 % (50-75); TOTAL CELLS COUNTED 50
[2017-05-01 20:33] LABS: ABNORMAL PROTEIN BAND 1 0.19 g/dL (None Detected); BETA 1 GLOBULIN 0.4 g/dL (0.4-0.6); BETA 2 GLOBULIN 0.5 g/dL (0.2-0.5); GAMMA GLOBULIN 0.6 g/dL (0.8-1.7)
[2017-05-01] MEDS: Micafungin 100 MG in Sodium Chloride 0.9% 100 ML IV SCH (21:28)
[2017-05-01] MEDS: metroNIDAZOLE IV 500 mg/100 ml 500 MG/100 ML BAG IVPB SCH (22:24)
[2017-05-02] MEDS: Aztreonam 2 GM in Dextrose 5% In Water 100 ML IVPB SCH ×2 (01:04→10:00)
[2017-05-02] MEDS: Mag&Al/Simet/Diphen/Lido 237 ML KIT PO SCH ×5 (01:37→18:15)
[2017-05-02] MEDS: metroNIDAZOLE IV 500 mg/100 ml 500 MG/100 ML BAG IVPB SCH ×3 (05:39→21:18)
[2017-05-02 07:42] LABS: HEMATOCRIT 26.1 % (34.0-47.0); MEAN CELL VOLUME 98.1 fL (81.0-99.0); MEAN CORPUSCULAR HEMOGLOBIN 32.9 pg (27.0-31.0); MEAN CORPUSCULAR HGB CONC 33.5 g/dL (33.0-37.0); MEAN PLATELET VOLUME 9.1 fL (7.2-11.7); PLATELET COUNT 37 K/uL (130-400); RED CELL DISTRIBUTION WIDTH 15.1 % (11.5-14.5)
[2017-05-02 07:57] LABS: WHITE BLOOD COUNT 1.4 K/uL (4.8-10.8)
[2017-05-02 08:04] LABS: ALB/GLOB RATIO 1.3 (1.0-2.1); ALKALINE PHOSPHATASE 184 U/L (38-126); ALT/SGPT 46 U/L (9-52); AST/SGOT 56 U/L (14-36); BILIRUBIN,TOTAL 1.3 mg/dL (0.2-1.3); BLOOD UREA NITROGEN 30 mg/dL (7-17); CALCIUM 8.1 mg/dl (8.6-10.4); CARBON DIOXIDE 25 mmol/L (22-30); CHLORIDE 102 mmol/L (98-107); GFR AFRICAN-AMERICAN > 60; GLUCOSE,RANDOM 90 mg/dL (65-105); POTASSIUM 3.4 mmol/L (3.6-5.2); SODIUM 138 mmol/L (132-148)
[2017-05-02] MEDS: Sodium Chloride 0.45% 1,000 ML IV SCH (08:25)
[2017-05-02 09:23] LABS: INTRACELLULAR PARASITE NEGATIVE (NEGATIVE)
--- NOTE | 2017-05-02 09:59 | PN ---
DATE: SUBJECTIVE: I saw Lilliam sleeping in bed. She is not eating well. The throat is still bothering her. I consulted ENT yesterday, consult them again. She is still getting IV antibiotics and being seen by Infectious Disease and Hematology/Oncology. She is still pancytopenic. Yesterday's labs, the white count was 1.1 still, 9.3 hemoglobin, 27.9 hematocrit with 46 platelets. Chemistry was 136 sodium, potassium 3.8, BUN 35, creatinine 0.9 - the best it has been. GFR was greater than 60, calcium is 8.4, total bili is 1.6, AST is 45, ALT alk phos 215 and total protein 6.4. She is uncomfortable. She has DNA nondetected, C. diff nondetected. Blood parasite screen are negative. Anti-staphylolysin were negative. She is having multiple workup with Hematology/Oncology. She is currently on Advair, aztreonam, Bactroban cream, Drisdol, Magic Mouthwash, Flagyl, folic acid, Lovenox, micafungin, morphine, IV fluids, vitamins, Toprol, Tylenol, Valtrex and vancomycin. Urine culture shows E. coli. I called [facility], ordered a CAT scan of her neck, which has been going on for 3 to 4 days now. It is not improving. We will see what ENT has to say; continue with aggressive Hematology/Oncology treatment, Infectious Disease treatment. We will check her labs tomorrow. Get her out of bed to chair and get physical therapy. To continue with physical therapy for her; as she does not want to go to [place]. She wants to go to [facility]. She has been there before for subacute rehab, so that will be the plan. Continue aggressive treatment and care. Tyrell Maya DO MTDD
[2017-05-02] MEDS: Multivitamin With Minerals Tab PO SCH (10:07)
[2017-05-02] MEDS: Metoprolol Succinate 12.5 mg XL PO SCH ×2 (10:48→18:15)
--- NOTE | 2017-05-02 13:07 | PN ---
DATE: SUBJECTIVE: I saw her resting comfortably in bed this morning. She slept fairly well. She is not eating well at all and I ordered a CAT scan of the neck. I also ordered ENT to take a look at her throat, hopefully it will come in today, I ordered that yesterday. She had been seen by Hematology, Infectious Disease, and GI. She is still quite weak and my goal is to get her to [facility] for subacute rehab. She is on IV fluids and IV antibiotics. PHYSICAL EXAMINATION: VITAL SIGNS: She has a 99.4 temp, the last 100.3 was the other night. She has 134/78 blood pressure, 76 pulse, 20 respiratory rate, 95% O2 sat on 2 liters. HEENT: Head atraumatic and normocephalic, but throat is still sore, inflamed, cannot swallow. HEART: Regular rate. LUNGS: Clear to auscultation with decreased breath sounds. ABDOMEN: Soft, obese. EXTREMITIES: No edema. She does have healing ulcers on the buttocks from shingles. MEDICATIONS: She is currently on Advair, aztreonam, Bactrim, Bactroban, Drisdol, Magic Mouthwash, Flagyl, folic acid, Lovenox, micafungin, morphine, IV fluids, , vitamins, Toprol, Tylenol, Valtrex, and vancomycin IV. LABORATORY DATA: She has 1.4 white count, white count went up from 1.1 to 1.4; 8.7 hemoglobin, 26.1 hematocrit with 37 platelets, very much pancytopenic. She has 138 sodium, potassium is 3.4, I am going to give her some potassium this morning; BUN is 30, creatinine 0.8, GFR is greater than 60, sugar is 90, calcium is 8.1. Total bili is 1.3, AST is 56, ALT is 46, alk phos 184, and total protein is 6. Stool for occult blood is negative. ASSESSMENT AND PLAN: I will continue with aggressive treatment and care with Hematology, ID, and GI. We will call an ENT and awaiting bone marrow results, and then eventually we will need to get her to [facility] for subacute rehab. Tyrell Maya, DO MTDArtem
--- NOTE | 2017-05-02 13:32 | CT ---
PROCEDURE: CT NECK WITHOUT CONTRAST HISTORY: dysphagia COMPARISON: None. TECHNIQUE: CT of the neck without intravenous contrast. Coronal and sagittal reformats generated. Radiation dose: DLP . 2.34 mGy-cm This CT exam was performed using one or more of the following dose reduction techniques: Automated exposure control, adjustment of the mA and/or kV according to patient size, and/or use of iterative reconstruction technique. FINDINGS: The lack images contrast limits evaluation of neck anatomy. NASOPHARYNX: Unremarkable. SUPRAHYOID NECK: There is limited fullness identified at the inferior left oropharynx and left hypopharynx is felt to be a function of an ectatic left internal carotid artery. Remainder of the pharynx is unremarkable. The remainder of the suprahyoid neck is grossly nonfocal as well. INFRAHYOID NECK: Unremarkable larynx, hypopharynx, and supraglottic space. Vocal cords intact. MASS: None are clearly identified however the lack images contrast limits the sensitivity of this examination, particularly for soft tissue lesions. GLANDS: Parotid and submandibular glands unremarkable. The thyroid gland appears level and lower limits of normal size without gross mass associated. LYMPH NODES: Normal. No lymphadenopathy. CERVICAL SPINE: No significant anterior spondylosis to affect the upper esophagus. Multilevel spondylosis is seen at the mid to inferior cervical spine posteriorly however. OTHER FINDINGS: Carotid bulbar calcified atherosclerosis appreciated greater the right than left carotid bulb regions. Further, incidental pulmonary fibrosis is appreciated at the visualized bilateral pulmonary apices with emphysema suggesting COPD. IMPRESSION: No definitive cause of dysphagia identified in this unenhanced neck CT examination. Moderate ectasis of the left internal carotid artery medially is suspected causing a limited fullness of the inferior left oropharynx standing into the left hypopharynx somewhat superior lack of intravenous contrast limits the exam. No gross mass in the supra or infrahyoid neck or prominent lymphadenopathy. Incidental COPD.
[2017-05-02] MEDS ORDERED: Aztreonam 2 GM in Sodium Chloride 0.9% 100 ML IVPB SCH (17:00)
--- NOTE | 2017-05-02 17:39 | CON ---
DATE: 04/25/2017 REASON FOR CONSULTATION: Oral ulcer. REQUESTING PHYSICIAN: Tyrell Maya DO. HISTORY OF PRESENT ILLNESS: This is an 82-year-old female, who has been having oral pain for the past month, it has been increasing. The pain is on the both side, it is constant. Right now it is [id number] in intensity. There is no hoarseness. PAST MEDICAL HISTORY: As noted in the chart by me. MEDICATIONS: As noted in the chart by me. PHYSICAL EXAMINATION: HEENT: Atraumatic and normocephalic. FACE: Good facial movements bilaterally. CONSTITUTIONAL: Well fed, well nourished. COMMUNICATION: Communicates well and appropriately. EXTERNAL NOSE AND EARS: No masses. No lesions. No erythema. No edema. INTERNAL NOSE: Deviated septum. No masses. No lesions. No erythema. No edema. ORAL CAVITY AND OROPHARYNX: There are large areas of inflammation on buccal mucosa on both sides. LIPS AND GUMS: No masses. No lesions. No erythema. No edema. NECK: Supple. THYROID: No thyromegaly. No goiter. LYMPH NODES: No lymphadenopathy of the neck. ASSESSMENT: 1. Oral ulcers. 2. Deviated septum. PLAN: Mostly likely this is due to inflammation either secondary to an infection or autoimmune process. We will recommend an infectious disease consult. Easton Oneill MD
[2017-05-02] MEDS: Vancomycin 1 gm/NS 200 ml 1 GM/200 ML BAG IVPB SCH (18:15)
[2017-05-02 18:31] LABS: COXSACKIE A10 AB <1:8; COXSACKIE A16 AB <1:8; COXSACKIE A2 AB <1:8; COXSACKIE A7 AB <1:8; COXSACKIE A9 AB <1:8; COXSACKIE B1 <1:8; COXSACKIE B2 <1:8; COXSACKIE B3 <1:8; COXSACKIE B4 <1:8; COXSACKIE B5 <1:8
--- NOTE | 2017-05-02 19:02 | CP.PCM.PN ---
Subjective - Date & Time of Evaluation Date of Evaluation: 05/02/17 Time of Evaluation: 07:00 - Subjective Subjective: iv rx in progress not eating Objective - Vital Signs/Intake and Output Vital Signs (last 24 hours): Temp Pulse Resp BP Pulse Ox 98.3 F 70 20 122/67 97 05/02/17 15:25 05/02/17 15:25 05/02/17 15:25 05/02/17 15:25 05/02/17 15:25 Intake and Output: 05/02/17 05/03/17 18:59 06:59 Intake Total 820 Balance 820 - Medications Medications: Current Medications Acetaminophen (Tylenol 325mg Tab) 650 mg PO Q4 PRN PRN Reason: Fever >100.4 F Last Admin: 04/30/17 22:58 Dose: 650 mg Enoxaparin Sodium (Lovenox) 30 mg SC DAILY [facility] Last Admin: 04/30/17 10:04 Dose: 30 mg Ergocalciferol (Drisdol 50,000 Intl Units Cap) 1 cap PO QWK [facility] Last Admin: 04/26/17 17:41 Dose: 1 cap Folic Acid (Folic Acid) 1 mg PO DAILY [facility] Last Admin: 05/02/17 10:07 Dose: 1 mg Sodium Chloride (Sodium Chloride 0.45%) 1,000 mls @ 40 mls/hr IV .Q24H [facility] Last Admin: 05/02/17 08:25 Dose: Not Given Vancomycin/Sodium Chloride (Vancomycin 1 Gm/Ns 200 Ml) 1 gm in 200 mls @ 133.333 mls/hr IVPB Q24H [facility] Stop: 05/07/17 18:01 Last Admin: 05/02/17 18:15 Dose: 133.333 mls/hr Micafungin Sodium 100 mg/ (Sodium Chloride) 100 mls @ 100 mls/hr IV Q24H [facility] Last Admin: 05/01/17 21:28 Dose: 100 mls/hr Metronidazole (Flagyl) 500 mg in 100 mls @ 100 mls/hr IVPB Q8 [facility] Last Admin: 05/02/17 13:57 Dose: 100 mls/hr Aztreonam 2 gm/ Dextrose 100 mls @ 200 mls/hr IVPB Q8H [facility] Metoprolol Succinate (Toprol Xl) 12.5 mg PO BID [facility] Last Admin: 05/02/17 18:15 Dose: 12.5 mg Morphine Sulfate (Morphine) 2 mg IVP Q4 PRN PRN Reason: Pain, moderate (4-7) Last Admin: 05/02/17 16:45 Dose: 2 mg Multivitamins/Minerals (Therapeutic-M Tab) 1 tab PO DAILY [facility] Last Admin: 05/02/17 10:07 Dose: 1 tab Mupirocin (Bactroban Ointment) 0 gm TOP BID [facility] Last Admin: 05/02/17 18:15 Dose: 1 applic Mupirocin (Bactroban Ointment) 0 gm TOP DAILY [facility] Last Admin: 05/02/17 10:54 Dose: 1 applic Saliva Substitute (First Magic Mouthwash) 5 ml PO Q4H [facility] Last Admin: 05/02/17 18:15 Dose: 5 ml Fluticasone/Salmeterol (Advair Diskus 250/50) 1 puff INH RQ12 [facility] Last Admin: 04/28/17 08:00 Dose: 1 puff Valacyclovir HCl (Valtrex) 500 mg PO BID [facility] Last Admin: 05/02/17 18:15 Dose: 500 mg - Labs Labs: 05/02/17 07:35 05/02/17 07:35 PT 13.9 SECONDS (9.7-12.2) H 05/01/17 17:32 INR 1.2 05/01/17 17:32 APTT 25 SECONDS (21-34) 05/01/17 17:32 - Constitutional Appears: Non-toxic, Cachectic, Chronically Ill - Head Exam Head Exam: NORMOCEPHALIC - Eye Exam Eye Exam: PERRL - ENT Exam ENT Exam: Mucous Membranes Dry - Neck Exam Neck Exam: absent: Lymphadenopathy - Respiratory Exam Respiratory Exam: Decreased Breath Sounds - Cardiovascular Exam Cardiovascular Exam: REGULAR RHYTHM - GI/Abdominal Exam GI & Abdominal Exam: Distended, Soft - Rectal Exam Rectal Exam: Deferred - Exam Exam: NORMAL INSPECTION - Extremities Exam Extremities Exam: absent: Pedal Edema - Back Exam Back Exam: absent: CVA tenderness (L), CVA tenderness (R) - Neurological Exam Neurological Exam: Alert, Awake, Oriented x3 - Psychiatric Exam Psychiatric exam: Depressed Assessment and Plan (1) Pancytopenia Status: Acute (2) Renal insufficiency Status: Acute (3) ARF (acute renal failure) with tubular necrosis Status: Acute (4) Dehydration, severe Status: Acute
[2017-05-02] MEDS: Micafungin 100 MG in Sodium Chloride 0.9% 100 ML IV SCH (19:55)
--- NOTE | 2017-05-02 22:36 | CP.PCM.PN ---
Subjective - Date & Time of Evaluation Date of Evaluation: 05/02/17 Time of Evaluation: 07:45 - Subjective Subjective: Pt denied any chest pain no tachycardia no sob Objective - Vital Signs/Intake and Output Vital Signs (last 24 hours): Temp Pulse Resp BP Pulse Ox 98.3 F 70 20 122/67 97 05/02/17 15:25 05/02/17 15:25 05/02/17 15:25 05/02/17 15:25 05/02/17 15:25 Intake and Output: 05/02/17 05/03/17 18:59 06:59 Intake Total 820 Balance 820 - Medications Medications: Current Medications Acetaminophen (Tylenol 325mg Tab) 650 mg PO Q4 PRN PRN Reason: Fever >100.4 F Last Admin: 04/30/17 22:58 Dose: 650 mg Enoxaparin Sodium (Lovenox) 30 mg SC DAILY [facility] Last Admin: 04/30/17 10:04 Dose: 30 mg Ergocalciferol (Drisdol 50,000 Intl Units Cap) 1 cap PO QWK [facility] Last Admin: 04/26/17 17:41 Dose: 1 cap Folic Acid (Folic Acid) 1 mg PO DAILY [facility] Last Admin: 05/02/17 10:07 Dose: 1 mg Sodium Chloride (Sodium Chloride 0.45%) 1,000 mls @ 40 mls/hr IV .Q24H [facility] Last Admin: 05/02/17 08:25 Dose: Not Given Vancomycin/Sodium Chloride (Vancomycin 1 Gm/Ns 200 Ml) 1 gm in 200 mls @ 133.333 mls/hr IVPB Q24H [facility] Stop: 05/07/17 18:01 Last Admin: 05/02/17 18:15 Dose: 133.333 mls/hr Micafungin Sodium 100 mg/ (Sodium Chloride) 100 mls @ 100 mls/hr IV Q24H [facility] Last Admin: 05/02/17 19:55 Dose: 100 mls/hr Metronidazole (Flagyl) 500 mg in 100 mls @ 100 mls/hr IVPB Q8 [facility] Last Admin: 05/02/17 21:18 Dose: 100 mls/hr Aztreonam 2 gm/ Dextrose 100 mls @ 200 mls/hr IVPB Q8H [facility] Metoprolol Succinate (Toprol Xl) 12.5 mg PO BID [facility] Last Admin: 05/02/17 18:15 Dose: 12.5 mg Morphine Sulfate (Morphine) 2 mg IVP Q4 PRN PRN Reason: Pain, moderate (4-7) Last Admin: 05/02/17 21:17 Dose: 2 mg Multivitamins/Minerals (Therapeutic-M Tab) 1 tab PO DAILY [facility] Last Admin: 05/02/17 10:07 Dose: 1 tab Mupirocin (Bactroban Ointment) 0 gm TOP BID [facility] Last Admin: 05/02/17 18:15 Dose: 1 applic Mupirocin (Bactroban Ointment) 0 gm TOP DAILY [facility] Last Admin: 05/02/17 10:54 Dose: 1 applic Saliva Substitute (First Magic Mouthwash) 5 ml PO Q4H [facility] Last Admin: 05/02/17 18:15 Dose: 5 ml Fluticasone/Salmeterol (Advair Diskus 250/50) 1 puff INH RQ12 [facility] Last Admin: 04/28/17 08:00 Dose: 1 puff Valacyclovir HCl (Valtrex) 500 mg PO BID [facility] Last Admin: 05/02/17 18:15 Dose: 500 mg - Labs Labs: 05/02/17 07:35 05/02/17 07:35 PT 13.9 SECONDS (9.7-12.2) H 05/01/17 17:32 INR 1.2 05/01/17 17:32 APTT 25 SECONDS (21-34) 05/01/17 17:32 - Constitutional Appears: Non-toxic - Head Exam Head Exam: NORMAL INSPECTION - Eye Exam Eye Exam: absent: Scleral icterus - ENT Exam ENT Exam: Mucous Membranes Moist - Neck Exam Neck Exam: Full ROM - Respiratory Exam Respiratory Exam: Decreased Breath Sounds - Cardiovascular Exam Cardiovascular Exam: REGULAR RHYTHM - GI/Abdominal Exam GI & Abdominal Exam: Soft - Rectal Exam Rectal Exam: NORMAL INSPECTION - Extremities Exam Extremities Exam: absent: Calf Tenderness, Pedal Edema Assessment and Plan - Assessment and Plan (Free Text) Assessment: Pancytopenia Plan: Cont hematological work-up Case discussed with Dr Welch
--- NOTE | 2017-05-02 22:44 | CP.PCM.PN ---
Subjective - Date & Time of Evaluation Date of Evaluation: 05/01/17 Time of Evaluation: 08:15 - Subjective Subjective: remains comfortable denied chest pain weak no tachycardia Objective - Vital Signs/Intake and Output Vital Signs (last 24 hours): Temp Pulse Resp BP Pulse Ox 98.3 F 70 20 122/67 97 05/02/17 15:25 05/02/17 15:25 05/02/17 15:25 05/02/17 15:25 05/02/17 15:25 Intake and Output: 05/02/17 05/03/17 18:59 06:59 Intake Total 820 Balance 820 - Medications Medications: Current Medications Acetaminophen (Tylenol 325mg Tab) 650 mg PO Q4 PRN PRN Reason: Fever >100.4 F Last Admin: 04/30/17 22:58 Dose: 650 mg Enoxaparin Sodium (Lovenox) 30 mg SC DAILY [facility] Last Admin: 04/30/17 10:04 Dose: 30 mg Ergocalciferol (Drisdol 50,000 Intl Units Cap) 1 cap PO QWK [facility] Last Admin: 04/26/17 17:41 Dose: 1 cap Folic Acid (Folic Acid) 1 mg PO DAILY [facility] Last Admin: 05/02/17 10:07 Dose: 1 mg Sodium Chloride (Sodium Chloride 0.45%) 1,000 mls @ 40 mls/hr IV .Q24H [facility] Last Admin: 05/02/17 08:25 Dose: Not Given Vancomycin/Sodium Chloride (Vancomycin 1 Gm/Ns 200 Ml) 1 gm in 200 mls @ 133.333 mls/hr IVPB Q24H [facility] Stop: 05/07/17 18:01 Last Admin: 05/02/17 18:15 Dose: 133.333 mls/hr Micafungin Sodium 100 mg/ (Sodium Chloride) 100 mls @ 100 mls/hr IV Q24H [facility] Last Admin: 05/02/17 19:55 Dose: 100 mls/hr Metronidazole (Flagyl) 500 mg in 100 mls @ 100 mls/hr IVPB Q8 [facility] Last Admin: 05/02/17 21:18 Dose: 100 mls/hr Aztreonam 2 gm/ Dextrose 100 mls @ 200 mls/hr IVPB Q8H [facility] Metoprolol Succinate (Toprol Xl) 12.5 mg PO BID [facility] Last Admin: 05/02/17 18:15 Dose: 12.5 mg Morphine Sulfate (Morphine) 2 mg IVP Q4 PRN PRN Reason: Pain, moderate (4-7) Last Admin: 05/02/17 21:17 Dose: 2 mg Multivitamins/Minerals (Therapeutic-M Tab) 1 tab PO DAILY [facility] Last Admin: 05/02/17 10:07 Dose: 1 tab Mupirocin (Bactroban Ointment) 0 gm TOP BID [facility] Last Admin: 05/02/17 18:15 Dose: 1 applic Mupirocin (Bactroban Ointment) 0 gm TOP DAILY [facility] Last Admin: 05/02/17 10:54 Dose: 1 applic Saliva Substitute (First Magic Mouthwash) 5 ml PO Q4H [facility] Last Admin: 05/02/17 18:15 Dose: 5 ml Fluticasone/Salmeterol (Advair Diskus 250/50) 1 puff INH RQ12 [facility] Last Admin: 04/28/17 08:00 Dose: 1 puff Valacyclovir HCl (Valtrex) 500 mg PO BID [facility] Last Admin: 05/02/17 18:15 Dose: 500 mg - Labs Labs: 05/02/17 07:35 05/02/17 07:35 PT 13.9 SECONDS (9.7-12.2) H 05/01/17 17:32 INR 1.2 05/01/17 17:32 APTT 25 SECONDS (21-34) 05/01/17 17:32 - Constitutional Appears: Non-toxic - Head Exam Head Exam: NORMAL INSPECTION - Eye Exam Eye Exam: absent: Scleral icterus - ENT Exam ENT Exam: Mucous Membranes Moist - Neck Exam Neck Exam: Full ROM - Respiratory Exam Respiratory Exam: NORMAL BREATHING PATTERN - Cardiovascular Exam Cardiovascular Exam: REGULAR RHYTHM - GI/Abdominal Exam GI & Abdominal Exam: Normal Bowel Sounds - Extremities Exam Extremities Exam: Calf Tenderness. absent: Pedal Edema - Neurological Exam Neurological Exam: Alert Assessment and Plan - Assessment and Plan (Free Text) Assessment: Stable cardiac henderson Pancytopenia Oral Ulcers Plan: Cont w/u for pancytopenia Monitor vital signs
--- NOTE | 2017-05-02 22:52 | CP.PCM.CON ---
History of Present Illness - History of Present Illness History of Present Illness: CC tachycardia rate 140 HPI : Pt is an 82 y/o admitted for fever,oral ulcers and pancytopenia. When seen , heart rate was down to 90's. Pt denied any chest pain or sob. Review of Systems - Constitutional Constitutional: Fever, Malaise, Weakness - EENT Eyes: absent: Blurred Vision, Irritation Nose/Mouth/Throat: absent: Epistaxis - Cardiovascular Cardiovascular: absent: Chest Pain, Leg Edema - Respiratory Respiratory: absent: Dyspnea - Gastrointestinal Gastrointestinal: absent: Melena, Vomiting - Musculoskeletal Musculoskeletal: Arthralgias Past Patient History - Infectious Disease Hx of Infectious Diseases: None - Tetanus Immunizations Tetanus Immunization: Unknown - Past Medical History & Family History Past Medical History?: Yes - Past Social History Smoking Status: Former Smoker - CARDIAC Hx Cardiac Disorders: Yes Hx Hypertension: Yes - PULMONARY Hx Chronic Obstructive Pulmonary Disease (COPD): Yes - NEUROLOGICAL HX Cerebrovascular Accident: Yes (2009) - HEENT Hx HEENT Problems: Yes Hx Cataracts: Yes (both eyes) - RENAL Hx Chronic Kidney Disease: No - ENDOCRINE/METABOLIC Hx Diabetes Mellitus Type 2: Yes (no meds) - HEMATOLOGICAL/ONCOLOGICAL Hx Anemia: Yes (HX.) Hx Blood Transfusions: Yes - INTEGUMENTARY Hx Dermatological Problems: Yes Other/Comment: shingles L Buttock - MUSCULOSKELETAL/RHEUMATOLOGICAL Hx Falls: No - GASTROINTESTINAL Hx Gastrointestinal Disorders: Yes Hx Gastritis: Yes - GENITOURINARY/GYNECOLOGICAL Hx Genitourinary Disorders: No - PSYCHIATRIC Hx Substance Use: No - SURGICAL HISTORY Hx Surgeries: Yes Hx Tonsillectomy: Yes - ANESTHESIA Hx Anesthesia: Yes Hx Anesthesia Reactions: No Hx Malignant Hyperthermia: No Meds Allergies/Adverse Reactions: Allergies Allergy/AdvReac Type Severity Reaction Status Date / Time Penicillins Allergy Intermediate Verified 04/25/17 19:01 - Medications Medications: Current Medications Acetaminophen (Tylenol 325mg Tab) 650 mg PO Q4 PRN PRN Reason: Fever >100.4 F Last Admin: 04/30/17 22:58 Dose: 650 mg Enoxaparin Sodium (Lovenox) 30 mg SC DAILY [facility] Last Admin: 04/30/17 10:04 Dose: 30 mg Ergocalciferol (Drisdol 50,000 Intl Units Cap) 1 cap PO QWK [facility] Last Admin: 04/26/17 17:41 Dose: 1 cap Folic Acid (Folic Acid) 1 mg PO DAILY [facility] Last Admin: 05/02/17 10:07 Dose: 1 mg Sodium Chloride (Sodium Chloride 0.45%) 1,000 mls @ 40 mls/hr IV .Q24H [facility] Last Admin: 05/02/17 08:25 Dose: Not Given Vancomycin/Sodium Chloride (Vancomycin 1 Gm/Ns 200 Ml) 1 gm in 200 mls @ 133.333 mls/hr IVPB Q24H [facility] Stop: 05/07/17 18:01 Last Admin: 05/02/17 18:15 Dose: 133.333 mls/hr Micafungin Sodium 100 mg/ (Sodium Chloride) 100 mls @ 100 mls/hr IV Q24H [facility] Last Admin: 05/02/17 19:55 Dose: 100 mls/hr Metronidazole (Flagyl) 500 mg in 100 mls @ 100 mls/hr IVPB Q8 [facility] Last Admin: 05/02/17 21:18 Dose: 100 mls/hr Aztreonam 2 gm/ Dextrose 100 mls @ 200 mls/hr IVPB Q8H [facility] Metoprolol Succinate (Toprol Xl) 12.5 mg PO BID [facility] Last Admin: 05/02/17 18:15 Dose: 12.5 mg Morphine Sulfate (Morphine) 2 mg IVP Q4 PRN PRN Reason: Pain, moderate (4-7) Last Admin: 05/02/17 21:17 Dose: 2 mg Multivitamins/Minerals (Therapeutic-M Tab) 1 tab PO DAILY [facility] Last Admin: 05/02/17 10:07 Dose: 1 tab Mupirocin (Bactroban Ointment) 0 gm TOP BID [facility] Last Admin: 05/02/17 18:15 Dose: 1 applic Mupirocin (Bactroban Ointment) 0 gm TOP DAILY [facility] Last Admin: 05/02/17 10:54 Dose: 1 applic Saliva Substitute (First Magic Mouthwash) 5 ml PO Q4H [facility] Last Admin: 05/02/17 18:15 Dose: 5 ml Fluticasone/Salmeterol (Advair Diskus 250/50) 1 puff INH RQ12 [facility] Last Admin: 04/28/17 08:00 Dose: 1 puff Valacyclovir HCl (Valtrex) 500 mg PO BID [facility] Last Admin: 05/02/17 18:15 Dose: 500 mg Physical Exam - Constitutional Appears: Non-toxic - Head Exam Head Exam: NORMAL INSPECTION - Eye Exam Eye Exam: absent: Scleral icterus - ENT Exam ENT Exam: Mucous Membranes Moist - Neck Exam Neck exam: Positive for: Full Rom - Respiratory Exam Respiratory Exam: Clear to Auscultation Bilateral - Cardiovascular Exam Cardiovascular Exam: REGULAR RHYTHM - GI/Abdominal Exam GI & Abdominal Exam: Soft. absent: Tenderness - Extremities Exam Extremities exam: Negative for: calf tenderness, pedal edema - Neurological Exam Neurological exam: Alert Results - Vital Signs Recent Vital Signs: Last Vital Signs Temp 98.3 F 05/02/17 15:25 Pulse 70 05/02/17 15:25 Resp 20 05/02/17 15:25 BP 122/67 05/02/17 15:25 Pulse Ox 97 05/02/17 15:25 - Labs Result Diagrams: 05/02/17 07:35 05/02/17 07:35 Labs: Laboratory Results - last 24 hr 04/27/17 04/27/17 04/29/17 01:22 01:22 08:06 WBC RBC Hgb Hct MCV MCH MCHC RDW Plt Count MPV Sodium Potassium Chloride Carbon Dioxide Anion Gap BUN Creatinine Est GFR ( Amer) Est GFR (Non-Af Amer) Random Glucose Calcium Total Bilirubin AST ALT Alkaline Phosphatase Total Protein Albumin Globulin Albumin/Globulin Ratio Babesia microti DNA PCR Not detected C. difficile Tox B Gene Not detected Coxsackie Type A(2) Ab <1:8 [place] Type A(4) Ab <1:8 [place] Type A(7) Ab <1:8 [place] Type A(9) Ab <1:8 [place]ie Type A(16) Ab <1:8 [place] Type B(1) Ab <1:8 [place] Type B(2) Ab <1:8 [place] Type B(3) Ab <1:8 [place]ie Type B(4) Ab <1:8 [place] Type B(5) Ab <1:8 [place] Type B(6) Ab <1:8 Blood Parasites Smear 05/02/17 05/02/17 07:35 07:35 WBC 1.4 L* RBC 2.66 L Hgb 8.7 L Hct 26.1 L MCV 98.1 MCH 32.9 H MCHC 33.5 RDW 15.1 H Plt Count 37 L MPV 9.1 Sodium 138 Potassium 3.4 L Chloride 102 Carbon Dioxide 25 Anion Gap 14 BUN 30 H Creatinine 0.8 Est GFR ( Amer) > 60 Est GFR (Non-Af Amer) > 60 Random Glucose 90 Calcium 8.1 L Total Bilirubin 1.3 AST 56 H D ALT 46 Alkaline Phosphatase 184 H Total Protein 6.0 L Albumin 3.4 L Globulin 2.7 Albumin/Globulin Ratio 1.3 Babesia microti DNA PCR C. difficile Tox B Gene Coxsackie Type A(2) Ab [place] Type A(4) Ab [place] Type A(7) Ab [place] Type A(9) Ab [place] Type A(16) Ab [place] Type B(1) Ab [place] Type B(2) Ab [place]ie Type B(3) Ab [place]ie Type B(4) Ab [place]ackie Type B(5) Ab Coxsackie Type B(6) Ab Blood Parasites Smear Negative Assessment & Plan - Assessment and Plan (Free Text) Assessment: Tachycardia most likely metabolic ie fever 2ndary to Sepsis; Dehydration; anemia Pancytopenia Oral ulcers Plan: Treat underlying cause ie infection ID consult Echo if not done
[2017-05-03] MEDS: Aztreonam 2 GM in Dextrose 5% In Water 100 ML IVPB SCH ×3 (00:42→17:37)
[2017-05-03] MEDS: Mag&Al/Simet/Diphen/Lido 237 ML KIT PO SCH ×6 (02:50→22:05)
[2017-05-03] MEDS: metroNIDAZOLE IV 500 mg/100 ml 500 MG/100 ML BAG IVPB SCH ×3 (06:14→22:05)
[2017-05-03 07:15] LABS: HEMATOCRIT 24.9 % (34.0-47.0); MEAN CELL VOLUME 98.4 fL (81.0-99.0); MEAN CORPUSCULAR HEMOGLOBIN 33.2 pg (27.0-31.0); MEAN CORPUSCULAR HGB CONC 33.7 g/dL (33.0-37.0)
[2017-05-03 07:27] LABS: MEAN PLATELET VOLUME 9.3 fL (7.2-11.7); RED CELL DISTRIBUTION WIDTH 15.1 % (11.5-14.5)
[2017-05-03 07:37] LABS: WHITE BLOOD COUNT 1.7 K/uL (4.8-10.8)
[2017-05-03 07:44] LABS: ALKALINE PHOSPHATASE 166 U/L (38-126); ALT/SGPT 51 U/L (9-52); AST/SGOT 38 U/L (14-36); BILIRUBIN,TOTAL 1.1 mg/dL (0.2-1.3); BLOOD UREA NITROGEN 25 mg/dL (7-17); CALCIUM 8.6 mg/dl (8.6-10.4); CARBON DIOXIDE 26 mmol/L (22-30); CHLORIDE 104 mmol/L (98-107); GFR AFRICAN-AMERICAN > 60; GLUCOSE,RANDOM 94 mg/dL (65-105); POTASSIUM 3.5 mmol/L (3.6-5.2); SODIUM 142 mmol/L (132-148); TOTAL PROTEIN 6.4 g/dL (6.3-8.3)
[2017-05-03] MEDS ORDERED: Sodium Chloride 0.45% 1,000 ML IV SCH (07:45)
[2017-05-03] MEDS: Sodium Chloride 0.45% 1,000 ML IV SCH (08:39)
[2017-05-03] MEDS: Metoprolol Succinate 12.5 mg XL PO SCH ×2 (10:25→17:41)
[2017-05-03] MEDS: Ergocalciferol 50,000 Intl Units Cap PO SCH (10:25)
[2017-05-03] MEDS: Multivitamin With Minerals Tab PO SCH (10:25)
--- NOTE | 2017-05-03 11:42 | PN ---
DATE: SUBJECTIVE: I saw Lilliam resting comfortably in bed. She is uncomfortable with her throat, still not able to eat well, very weak, not getting out of bed. She is currently on IV fluids, Advair, Ambien, Azactam, Bactroban cream, Drisdol, Magic Mouthwash, metronidazole, folic acid, lidocaine, Lovenox, morphine. She does not want morphine anymore, I put her on Toradol IV. Micafungin, potassium replacement, Tylenol, Valtrex, and vancomycin. PHYSICAL EXAMINATION: VITAL SIGNS: She has 97.7 temperature, 80 pulse, 161/70 blood pressure, 22 respiratory rate, and 95% O2 sat on 2 L. HEENT: Head is atraumatic and normocephalic. Throat, ulcers and blood around the tongue. HEART: Regular rate. LUNGS: Decreased breath sounds. ABDOMEN: Soft, obese. EXTREMITIES: No edema. LABORATORY DATA: She has white count of 1.4, hemoglobin 8.7, hematocrit 26.1, platelets of 37. Sodium 138, potassium 3.4, was replaced, BUN 30, creatinine 0.8, GFR is greater than 60, sugar is 90, calcium is 8.1, AST is 66, ALT is 46, alkaline phosphates 184, and total protein of 6. ASSESSMENT AND PLAN: We will continue with aggressive treatment and care with her. We will check her labs. I changed her from morphine to Toradol. I am going to try and put her on some TPN because she is not eating well. Waiting for Hematology and Infectious Disease to help me with her. appreciated. Continue aggressive treatment and care. She has pancytopenia. A CAT scan of the neck did not show a mass. Tyrell Maya DO MTDD
--- NOTE | 2017-05-03 16:12 | CP.PCM.PN ---
Subjective - Date & Time of Evaluation Date of Evaluation: 05/03/17 Time of Evaluation: 08:00 - Subjective Subjective: s/p bx oral lesion wbc improved LFT's better temp down on iv rx Objective - Vital Signs/Intake and Output Vital Signs (last 24 hours): Temp Pulse Resp BP Pulse Ox 99.1 F 76 18 125/57 L 98 05/03/17 07:35 05/03/17 07:35 05/03/17 07:35 05/03/17 07:35 05/03/17 07:35 Intake and Output: 05/03/17 05/03/17 06:59 18:59 Intake Total 320 Balance 320 - Medications Medications: Current Medications Acetaminophen (Tylenol 325mg Tab) 650 mg PO Q4 PRN PRN Reason: Fever >100.4 F Last Admin: 04/30/17 22:58 Dose: 650 mg Enoxaparin Sodium (Lovenox) 30 mg SC DAILY [facility] Last Admin: 04/30/17 10:04 Dose: 30 mg Ergocalciferol (Drisdol 50,000 Intl Units Cap) 1 cap PO QWK [facility] Last Admin: 05/03/17 10:25 Dose: 1 cap Folic Acid (Folic Acid) 1 mg PO DAILY [facility] Last Admin: 05/03/17 10:25 Dose: 1 mg Vancomycin/Sodium Chloride (Vancomycin 1 Gm/Ns 200 Ml) 1 gm in 200 mls @ 133.333 mls/hr IVPB Q24H [facility] Stop: 05/07/17 18:01 Last Admin: 05/02/17 18:15 Dose: 133.333 mls/hr Micafungin Sodium 100 mg/ (Sodium Chloride) 100 mls @ 100 mls/hr IV Q24H [facility] Last Admin: 05/02/17 19:55 Dose: 100 mls/hr Metronidazole (Flagyl) 500 mg in 100 mls @ 100 mls/hr IVPB Q8 [facility] Last Admin: 05/03/17 14:23 Dose: 100 mls/hr Aztreonam 2 gm/ Dextrose 100 mls @ 200 mls/hr IVPB Q8H [facility] Last Admin: 05/03/17 08:37 Dose: 200 mls/hr Multivitamins/Vitamin C 10 ml/ (Amino Acids) 1,010 mls @ 43 mls/hr IV .[id number] ONE Stop: 05/04/17 17:29 Fat Emulsion Intravenous (Intralipid 20%) 250 mls @ 43 mls/hr IV MWF@1800 [facility] Stop: 05/09/17 18:01 Ketorolac Tromethamine (Toradol) 15 mg IVP Q6 PRN Last Admin: 05/03/17 11:20 Dose: 15 mg Metoprolol Succinate (Toprol Xl) 12.5 mg PO BID [facility] Last Admin: 05/03/17 10:25 Dose: 12.5 mg Morphine Sulfate (Morphine) 2 mg IVP Q4 PRN PRN Reason: Pain, moderate (4-7) Last Admin: 05/03/17 06:48 Dose: 2 mg Multivitamins/Minerals (Therapeutic-M Tab) 1 tab PO DAILY [facility] Last Admin: 05/03/17 10:25 Dose: 1 tab Mupirocin (Bactroban Ointment) 0 gm TOP BID [facility] Last Admin: 05/03/17 10:26 Dose: 1 applic Mupirocin (Bactroban Ointment) 0 gm TOP DAILY [facility] Last Admin: 05/02/17 10:54 Dose: 1 applic Saliva Substitute (First Magic Mouthwash) 5 ml PO Q4H [facility] Last Admin: 05/03/17 14:23 Dose: 5 ml Fluticasone/Salmeterol (Advair Diskus 250/50) 1 puff INH RQ12 [facility] Last Admin: 04/28/17 08:00 Dose: 1 puff Valacyclovir HCl (Valtrex) 500 mg PO BID [facility] Last Admin: 05/03/17 10:25 Dose: 500 mg Zolpidem Tartrate (Ambien) 5 mg PO HS PRN PRN Reason: Insomnia - Labs Labs: 05/03/17 07:03 05/03/17 07:03 PT 13.9 SECONDS (9.7-12.2) H 05/01/17 17:32 INR 1.2 05/01/17 17:32 APTT 25 SECONDS (21-34) 05/01/17 17:32 - Constitutional Appears: Non-toxic, Cachectic, Chronically Ill - Head Exam Head Exam: NORMOCEPHALIC - Eye Exam Eye Exam: absent: Scleral icterus - ENT Exam ENT Exam: Mucous Membranes Dry - Neck Exam Neck Exam: absent: Lymphadenopathy - Respiratory Exam Respiratory Exam: Decreased Breath Sounds - Cardiovascular Exam Cardiovascular Exam: REGULAR RHYTHM - GI/Abdominal Exam GI & Abdominal Exam: Distended - Rectal Exam Rectal Exam: Deferred - Exam Exam: NORMAL INSPECTION - Extremities Exam Extremities Exam: absent: Pedal Edema - Back Exam Back Exam: absent: CVA tenderness (L), CVA tenderness (R) - Neurological Exam Neurological Exam: Alert, Awake, Oriented x3 - Psychiatric Exam Psychiatric exam: Normal Mood - Skin Skin Exam: Dry Assessment and Plan (1) Pancytopenia Status: Acute (2) Renal insufficiency Status: Acute (3) ARF (acute renal failure) with tubular necrosis Status: Acute (4) Dehydration, severe Status: Acute - Assessment and Plan (Free Text) Assessment: possible ford jorge l syndrome consider skin Bx cont iv antibiotics for 7 days
--- NOTE | 2017-05-03 17:27 | OP ---
PROCEDURE DATE: 05/03/2017 PREOPERATIVE DIAGNOSIS: Right cheek lesion. POSTOPERATIVE DIAGNOSIS: Right cheek lesion. PROCEDURE: Right cheek lesion biopsy. SIGNIFICANT FINDINGS: Right cheek ulcer. PROCEDURE: The patient was placed in a seated position. The right cheek area was injected with lidocaine with epinephrine. Multiple biopsies were taken using biopsy forceps. Gauze was used to control bleeding. The patient tolerated the procedure well. Easton Oneill MD
[2017-05-03] MEDS: Vancomycin 1 gm/NS 200 ml 1 GM/200 ML BAG IVPB SCH (17:37)
[2017-05-03] MEDS ORDERED: PPN #1 IV ONE (18:00)
--- NOTE | 2017-05-03 18:31 | CP.PCM.PN ---
Subjective - Date & Time of Evaluation Date of Evaluation: 05/03/17 Time of Evaluation: 18:24 - Subjective Subjective: The patient remains weak, with poor appetite.To be started on PPN. S/P biopsy of mouth ulcer. Some bleeding from site. Bone marrow biopsy still pending. Afebrile on antibiotics, LFTs and WBC better. Objective - Vital Signs/Intake and Output Vital Signs (last 24 hours): Temp Pulse Resp BP Pulse Ox 98.0 F 88 20 126/73 96 05/03/17 16:10 05/03/17 16:10 05/03/17 16:10 05/03/17 16:10 05/03/17 16:10 Intake and Output: 05/03/17 05/03/17 06:59 18:59 Intake Total 320 800 Balance 320 800 - Medications Medications: Current Medications Acetaminophen (Tylenol 325mg Tab) 650 mg PO Q4 PRN PRN Reason: Fever >100.4 F Last Admin: 04/30/17 22:58 Dose: 650 mg Enoxaparin Sodium (Lovenox) 30 mg SC DAILY [facility] Last Admin: 04/30/17 10:04 Dose: 30 mg Ergocalciferol (Drisdol 50,000 Intl Units Cap) 1 cap PO QWK [facility] Last Admin: 05/03/17 10:25 Dose: 1 cap Folic Acid (Folic Acid) 1 mg PO DAILY [facility] Last Admin: 05/03/17 10:25 Dose: 1 mg Vancomycin/Sodium Chloride (Vancomycin 1 Gm/Ns 200 Ml) 1 gm in 200 mls @ 133.333 mls/hr IVPB Q24H [facility] Stop: 05/07/17 18:01 Last Admin: 05/03/17 17:37 Dose: 133.333 mls/hr Micafungin Sodium 100 mg/ (Sodium Chloride) 100 mls @ 100 mls/hr IV Q24H [facility] Last Admin: 05/02/17 19:55 Dose: 100 mls/hr Metronidazole (Flagyl) 500 mg in 100 mls @ 100 mls/hr IVPB Q8 [facility] Last Admin: 05/03/17 14:23 Dose: 100 mls/hr Aztreonam 2 gm/ Dextrose 100 mls @ 200 mls/hr IVPB Q8H [facility] Last Admin: 05/03/17 17:37 Dose: 200 mls/hr Multivitamins/Vitamin C 10 ml/ (Amino Acids) 1,010 mls @ 43 mls/hr IV .[id number] ONE Stop: 05/04/17 17:29 Fat Emulsion Intravenous (Intralipid 20%) 250 mls @ 43 mls/hr IV MWF@1800 [facility] Stop: 05/09/17 18:01 Ketorolac Tromethamine (Toradol) 15 mg IVP Q6 PRN Last Admin: 05/03/17 11:20 Dose: 15 mg Metoprolol Succinate (Toprol Xl) 12.5 mg PO BID [facility] Last Admin: 05/03/17 17:41 Dose: 12.5 mg Morphine Sulfate (Morphine) 2 mg IVP Q4 PRN PRN Reason: Pain, moderate (4-7) Last Admin: 05/03/17 06:48 Dose: 2 mg Multivitamins/Minerals (Therapeutic-M Tab) 1 tab PO DAILY [facility] Last Admin: 05/03/17 10:25 Dose: 1 tab Mupirocin (Bactroban Ointment) 0 gm TOP BID [facility] Last Admin: 05/03/17 10:26 Dose: 1 applic Mupirocin (Bactroban Ointment) 0 gm TOP DAILY [facility] Last Admin: 05/03/17 10:50 Dose: Not Given Saliva Substitute (First Magic Mouthwash) 5 ml PO Q4H [facility] Last Admin: 05/03/17 14:23 Dose: 5 ml Fluticasone/Salmeterol (Advair Diskus 250/50) 1 puff INH RQ12 [facility] Last Admin: 04/28/17 08:00 Dose: 1 puff Valacyclovir HCl (Valtrex) 500 mg PO BID [facility] Last Admin: 05/03/17 17:41 Dose: 500 mg Zolpidem Tartrate (Ambien) 5 mg PO HS PRN PRN Reason: Insomnia - Labs Labs: 05/03/17 07:03 05/03/17 07:03 PT 13.9 SECONDS (9.7-12.2) H 05/01/17 17:32 INR 1.2 05/01/17 17:32 APTT 25 SECONDS (21-34) 05/01/17 17:32 Assessment and Plan (1) Pancytopenia Assessment & Plan: Pancytopenia, no obvious blasts in periphery, no obvious marrow disorder on flow cytometry. Platelet counts trending down, may need platelet transfusion by tomorrow. Continue Neupogen for now. Status: Acute
[2017-05-03] MEDS: Micafungin 100 MG in Sodium Chloride 0.9% 100 ML IV SCH (20:37)
[2017-05-03] MEDS: Fat Emulsion 20% IV 250 ML IV SCH (21:00)
[2017-05-04] MEDS: Aztreonam 2 GM in Dextrose 5% In Water 100 ML IVPB SCH ×3 (00:38→18:14)
[2017-05-04] MEDS: Mag&Al/Simet/Diphen/Lido 237 ML KIT PO SCH ×6 (02:51→22:19)
[2017-05-04] MEDS: metroNIDAZOLE IV 500 mg/100 ml 500 MG/100 ML BAG IVPB SCH ×3 (05:25→21:07)
--- NOTE | 2017-05-04 09:29 | RAD ---
Chest x-ray single frontal view History: Shortness of breath. Comparison: 04/28/2017 Findings: Right PICC line with tip extending to the cavoatrial junction. Biapical pleural thickening with upper lobe granulomatous changes. Diffuse increased interstitial lung markings. Prominent bibasilar breast shadows with implant shadows noted. Tortuous aorta. Heart size within normal limits. Correlation with lateral view may be helpful to exclude pathology at the lung bases. Impression: Right PICC line with tip extending to the cavoatrial junction. Biapical pleural thickening with upper lobe granulomatous changes. Diffuse increased interstitial lung markings. Prominent bibasilar breast shadows with implant shadows noted. Tortuous aorta. Heart size within normal limits. Correlation with lateral view may be helpful to exclude pathology at the lung bases.
[2017-05-04] MEDS: Enoxaparin 30 mg Syringe SC SCH (10:10)
[2017-05-04] MEDS: Metoprolol Succinate 12.5 mg XL PO SCH ×2 (10:31→19:24)
[2017-05-04] MEDS: Multivitamin With Minerals Tab PO SCH (10:34)
--- NOTE | 2017-05-04 13:38 | PN ---
SUBJECTIVE: She is resting comfortably in bed. She tells me she is little bit of short of breath and she is still very weak. She cannot swallow and mouth is very raw. She had a biopsy of the mouth yesterday. She is on PPN now for nutrition. She cannot seem to get any nutrition by mouth. She had a CAT scan of the soft tissue of the neck which was fine. She is being seen by ENT, Cardiology, Infectious Disease, and Hematology/Oncology. PHYSICAL EXAMINATION: GENERAL: She is alert and just weak, in bed. VITAL SIGNS: She has a 97.9 temperature, 81 pulse, 159/81 blood pressure, 18 respiratory rate, and 100% O2 sat on nasal cannula. HEENT: Her throat is raw and dry. NECK: Supple. HEART: Regular rate. LUNGS: Decreased breath sounds. She is actually short of breath today. I am going to do a chest x-ray. ABDOMEN: Soft, nontender, positive bowel sounds. EXTREMITIES: No edema. MEDICATIONS: She is currently on Advair, Ambien, aztreonam, Bactroban cream, Drisdol, Magic Mouthwash, Flagyl IV, folic acid, fat emulsion, Lovenox, micafungin, morphine, multivitamins, Toprol, Toradol, Tylenol, Valtrex, and vancomycin. She is on 4 antibiotics. LABORATORY DATA: Her lab is pending today. She had a 1.7 white count yesterday which is better; 8.4 hemoglobin, 24.9 hematocrit with a platelets as low as 22. She might need to be transfused if she does not improve. Yesterday; 142 sodium, potassium 3.5. I believe, we gave her some potassium replacement, we will see what this morning's labs are; 25 BUN; creatinine 0.8; GFR is greater than 60; sugar is 94; calcium is 8.6; total bili is 1.1; AST is 38; ALT is 51; alkaline phosphates 156; total protein of 6.4. PLAN: She is on PPN now. She is being seen by multiple doctors. We are checking her labs, chest x-rays. She is getting Neupogen shots; awaiting for the biopsy result of the mouth and a bone marrow biopsy completely we have given some direction on how to help her LTAC for long-term care and treatment for her. She is in very poor condition, not critical but very close. We will continue with aggressive treatment and care. Tyrlel Maya DO ARIEL
--- NOTE | 2017-05-04 14:57 | MRI ---
PROCEDURE: MRI BRAIN WITHOUT CONTRAST HISTORY: Patient reports trauma of the head COMPARISON: Brain MRI 05/26/2016. TECHNIQUE: Multiplanar, multisequence MR images of the brain were obtained without intravenous contrast enhancement. FINDINGS: HEMORRHAGE: None DWI: No evidence of an acute or early subacute infarction. BRAIN PARENCHYMA: Age related neuro degenerative changes are reiterated comprised of diffuse cerebral atrophy chronic microangiopathy with no suspicious interval findings. There is no mass effect. There is no suspicious extra-axial collection identified in the midline brain anatomy is stable. Tiny cystic foci at the bilateral frontal vertices are again appreciated probably reflecting dilated Gisell spaces rather than multifocal punctate chronic lacune or infarction. VENTRICLES: Unremarkable. No hydrocephalus. CRANIUM: Unremarkable. ORBITS: Grossly unremarkable. PARANASAL SINUSES/MASTOIDS: Clear VASCULAR SYSTEM: Skull base flow voids intact. OTHER FINDINGS: None. IMPRESSION: Re aeration of age related neuro degenerative changes greater prior brain MRI 05/26/2016. Note, although there is no evidence of acute or subacute brain infarction at this time or obvious intracranial hemorrhage, MRI can miss hyperacute hemorrhage in follow-up head CT is advised.
[2017-05-04] MEDS ORDERED: PPN #2 IV ONE (18:00)
[2017-05-04 18:18] LABS: ALB/GLOB RATIO 1.3 (1.0-2.1); ALKALINE PHOSPHATASE 168 U/L (38-126); ALT/SGPT 50 U/L (9-52); AST/SGOT 78 U/L (14-36); BILIRUBIN,TOTAL 1.5 mg/dL (0.2-1.3); BLOOD UREA NITROGEN 28 mg/dL (7-17); CALCIUM 8.6 mg/dl (8.6-10.4); CARBON DIOXIDE 26 mmol/L (22-30); CHLORIDE 105 mmol/L (98-107); GFR AFRICAN-AMERICAN > 60; GLUCOSE,RANDOM 109 mg/dL (65-105); POTASSIUM 3.6 mmol/L (3.6-5.2); SODIUM 141 mmol/L (132-148)
[2017-05-04 18:20] LABS: BASO # 0.1 K/uL (0.0-0.2); BASO % 0.7 % (0.0-2.0); EOS # 0.6 K/uL (0.0-0.7); EOS % 5.4 % (0.0-4.0); HEMATOCRIT 27.8 % (34.0-47.0); LYMPH # 3.7 K/uL (1.0-4.3); LYMPH % 33.7 % (20.0-40.0); MEAN CELL VOLUME 96.9 fL (81.0-99.0); MEAN CORPUSCULAR HEMOGLOBIN 32.4 pg (27.0-31.0); MEAN CORPUSCULAR HGB CONC 33.4 g/dL (33.0-37.0); MEAN PLATELET VOLUME 6.4 fL (7.2-11.7); MONO # 2.9 K/uL (0.0-0.8); MONO % 26.3 % (0.0-10.0); NRBC % 1.9 % (0.0-2.0); RED CELL DISTRIBUTION WIDTH 15.5 % (11.5-14.5); WHITE BLOOD COUNT 10.9 K/uL (4.8-10.8)
[2017-05-04 18:25] LABS: PLATELET COUNT 20 K/uL (130-400)
[2017-05-04] MEDS: Micafungin 100 MG in Sodium Chloride 0.9% 100 ML IV SCH (18:26)
[2017-05-04 19:03] LABS: METAMYELOCYTE 2 % (0-0); MYELOCYTE 3 % (0-0); NEUTROPHIL 43 % (50-75); PROMYELOCYTE 7 % (0-0); REACTIVE LYMPHOCYTES 3 % (0-0); TOTAL CELLS COUNTED 100
[2017-05-04 19:04] LABS: LARGE PLATELETS PRESENT
[2017-05-04] MEDS: Vancomycin 1 gm/NS 200 ml 1 GM/200 ML BAG IVPB SCH (19:20)
[2017-05-05] MEDS: Aztreonam 2 GM in Dextrose 5% In Water 100 ML IVPB SCH ×3 (01:12→16:47)
[2017-05-05] MEDS: Mag&Al/Simet/Diphen/Lido 237 ML KIT PO SCH ×6 (03:01→22:05)
[2017-05-05] MEDS: metroNIDAZOLE IV 500 mg/100 ml 500 MG/100 ML BAG IVPB SCH ×3 (05:09→22:05)
[2017-05-05 07:40] LABS: HEMATOCRIT 25.1 % (34.0-47.0); MEAN CELL VOLUME 98.4 fL (81.0-99.0); MEAN CORPUSCULAR HEMOGLOBIN 32.1 pg (27.0-31.0); MEAN CORPUSCULAR HGB CONC 32.6 g/dL (33.0-37.0); MEAN PLATELET VOLUME 10.3 fL (7.2-11.7); RED CELL DISTRIBUTION WIDTH 16.2 % (11.5-14.5); WHITE BLOOD COUNT 14.5 K/uL (4.8-10.8)
[2017-05-05 08:03] LABS: ALKALINE PHOSPHATASE 153 U/L (38-126); ALT/SGPT 46 U/L (9-52); AST/SGOT 80 U/L (14-36); BILIRUBIN,TOTAL 1.6 mg/dL (0.2-1.3); BLOOD UREA NITROGEN 25 mg/dL (7-17); CALCIUM 8.3 mg/dl (8.6-10.4); CARBON DIOXIDE 27 mmol/L (22-30); CHLORIDE 108 mmol/L (98-107); GFR AFRICAN-AMERICAN > 60; GLUCOSE,RANDOM 101 mg/dL (65-105); POTASSIUM 3.5 mmol/L (3.6-5.2); SODIUM 142 mmol/L (132-148); TOTAL PROTEIN 5.5 g/dL (6.3-8.3)
[2017-05-05 08:04] LABS: ALB/GLOB RATIO 1.3 (1.0-2.1)
[2017-05-05] MEDS: Multivitamin With Minerals Tab PO SCH ×2 (09:39→10:02)
[2017-05-05] MEDS: Metoprolol Succinate 12.5 mg XL PO SCH ×3 (09:40→17:56)
[2017-05-05] MEDS: Enoxaparin 30 mg Syringe SC SCH (10:05)
--- NOTE | 2017-05-05 14:51 | PN ---
SUBJECTIVE: She is resting comfortably in bed. Actually, she might look cachectic, little bit better today. PHYSICAL EXAMINATION: VITAL SIGNS: She has a 97.5 temperature, 81 pulse, 153/71 blood pressure, 20 respiratory rate, and 100% O2 sat on nasal cannula. HEENT: Head is atraumatic and normocephalic. Her mouth is in a . She is able to drink a little bit now. GENERAL: She is more awake and alert. HEART: Regular rate. LUNGS: Decreased breath sounds, but clear. ABDOMEN: Soft, obese. EXTREMITIES: No edema. MEDICATIONS: She is currently on Advair, Ambien, aztreonam, Bactroban, Drisdol, Magic Mouthwash, Flagyl, folic acid, Intralipid, Lovenox, micafungin, morphine, multivitamin, Toprol, Toradol, Tylenol, Valtrex, and vancomycin. LABORATORY DATA: Sodium 142; potassium 3.5, I will replace the potassium; BUN 25; creatinine 0.7. It is very good for her. GFR is greater than 60, sugar is 101, calcium is 8.3, total bilirubin is 1.6, AST is 80, ALT is 46, alkaline phosphates 153, total protein of 5.5, and albumin is 3.1. Urine has a lot of white cells, occasional bacteria. Occult blood was negative. She is being seen by numerous physicians; Hematology, Oncology, Infectious Disease, ENT, Cardiology, GI. We will continue with aggressive treatment and care, possibly to try and get her to an LTAC. We will replace potassium. Check her labs tomorrow. We will continue with aggressive treatment and care. She has pancytopenia, shortness of breath, dysphagia, tachycardia, renal insufficiency, and dehydration. Tyrell Maya DO MTDD
--- NOTE | 2017-05-05 15:13 | CP.PCM.PN ---
Subjective - Date & Time of Evaluation Date of Evaluation: 05/05/17 Time of Evaluation: 05:00 - Subjective Subjective: decreased fever weak and bedridden unable to eat c/o sob denies abd pain alert and responsive Objective - Vital Signs/Intake and Output Vital Signs (last 24 hours): Temp Pulse Resp BP Pulse Ox 97.5 F L 81 20 153/71 H 100 05/05/17 08:06 05/05/17 08:06 05/05/17 08:06 05/05/17 08:06 05/05/17 08:06 Intake and Output: 05/05/17 05/05/17 06:59 18:59 Intake Total 1180 Balance 1180 - Medications Medications: Current Medications Acetaminophen (Tylenol 325mg Tab) 650 mg PO Q4 PRN PRN Reason: Fever >100.4 F Last Admin: 04/30/17 22:58 Dose: 650 mg Acetaminophen (Tylenol 325mg Tab) 650 mg PO Q6 PRN PRN Reason: Pain, Mild (1-3) Last Admin: 05/04/17 14:39 Dose: 650 mg Enoxaparin Sodium (Lovenox) 30 mg SC DAILY [facility] Last Admin: 05/05/17 10:05 Dose: Not Given Ergocalciferol (Drisdol 50,000 Intl Units Cap) 1 cap PO QWK [facility] Last Admin: 05/03/17 10:25 Dose: 1 cap Folic Acid (Folic Acid) 1 mg PO DAILY [facility] Last Admin: 05/05/17 10:01 Dose: Not Given Vancomycin/Sodium Chloride (Vancomycin 1 Gm/Ns 200 Ml) 1 gm in 200 mls @ 133.333 mls/hr IVPB Q24H [facility] Stop: 05/07/17 18:01 Last Admin: 05/04/17 19:20 Dose: 133.333 mls/hr Micafungin Sodium 100 mg/ (Sodium Chloride) 100 mls @ 100 mls/hr IV Q24H [facility] Last Admin: 05/04/17 18:26 Dose: 100 mls/hr Metronidazole (Flagyl) 500 mg in 100 mls @ 100 mls/hr IVPB Q8 [facility] Last Admin: 05/05/17 13:38 Dose: 100 mls/hr Aztreonam 2 gm/ Dextrose 100 mls @ 200 mls/hr IVPB Q8H [facility] Last Admin: 05/05/17 09:40 Dose: 200 mls/hr Fat Emulsion Intravenous (Intralipid 20%) 250 mls @ 43 mls/hr IV MWF@1800 [facility] Stop: 05/09/17 18:01 Last Admin: 05/03/17 21:00 Dose: 43 mls/hr Multivitamins/Vitamin C 10 ml/ (Amino Acids) 1,010 mls @ 43 mls/hr IV .[id number] ONE Stop: 05/05/17 17:29 Last Admin: 05/04/17 18:25 Dose: 43 mls/hr Amino Acids (Clinimix 4.25/5 % "E" (1000 Ml)) 1,000 mls @ 43 mls/hr IV .[id number] ONE Stop: 05/06/17 17:15 Acyclovir 700 mg/ Dextrose 250 mls @ 166.667 mls/hr IV Q12H [facility] Last Admin: 05/05/17 14:39 Dose: 166.667 mls/hr Metoprolol Succinate (Toprol Xl) 12.5 mg PO BID [facility] Last Admin: 05/05/17 10:02 Dose: Not Given Morphine Sulfate (Morphine) 2 mg IVP Q4 PRN PRN Reason: Pain, moderate (4-7) Last Admin: 05/03/17 06:48 Dose: 2 mg Multivitamins/Minerals (Therapeutic-M Tab) 1 tab PO DAILY [facility] Last Admin: 05/05/17 10:02 Dose: Not Given Mupirocin (Bactroban Ointment) 0 gm TOP BID [facility] Last Admin: 05/05/17 09:43 Dose: 1 applic Mupirocin (Bactroban Ointment) 0 gm TOP DAILY [facility] Last Admin: 05/05/17 09:42 Dose: 1 applic Saliva Substitute (First Magic Mouthwash) 5 ml PO Q4H [facility] Last Admin: 05/05/17 14:40 Dose: 5 ml Fluticasone/Salmeterol (Advair Diskus 250/50) 1 puff INH RQ12 [facility] Last Admin: 04/28/17 08:00 Dose: 1 puff Zolpidem Tartrate (Ambien) 5 mg PO HS PRN PRN Reason: Insomnia - Labs Labs: 05/05/17 07:27 05/05/17 07:27 PT 13.9 SECONDS (9.7-12.2) H 05/01/17 17:32 INR 1.2 05/01/17 17:32 APTT 25 SECONDS (21-34) 05/01/17 17:32 - Constitutional Appears: Non-toxic, Cachectic, Chronically Ill - Head Exam Head Exam: ATRAUMATIC, NORMAL INSPECTION, NORMOCEPHALIC - Eye Exam Eye Exam: PERRL. absent: Scleral icterus - ENT Exam ENT Exam: Mucous Membranes Dry - Neck Exam Neck Exam: absent: Thyromegaly - Respiratory Exam Respiratory Exam: Decreased Breath Sounds, Clear to Ausculation Bilateral - Cardiovascular Exam Cardiovascular Exam: REGULAR RHYTHM, +S1, +S2 - GI/Abdominal Exam GI & Abdominal Exam: Distended, Soft. absent: Tenderness - Rectal Exam Rectal Exam: Deferred - Exam Exam: NORMAL INSPECTION - Extremities Exam Extremities Exam: absent: Pedal Edema - Back Exam Back Exam: absent: CVA tenderness (L), CVA tenderness (R) - Neurological Exam Neurological Exam: Alert, Awake, Oriented x3 Neuro motor strength exam: Left Upper Extremity: 3, Right Upper Extremity: 3, Left Lower Extremity: 3, Right Lower Extremity: 3 - Psychiatric Exam Psychiatric exam: Depressed - Skin Skin Exam: Dry Assessment and Plan (1) Pancytopenia Status: Acute (2) Renal insufficiency Status: Acute (3) ARF (acute renal failure) with tubular necrosis Status: Acute (4) Dehydration, severe Status: Acute - Assessment and Plan (Free Text) Assessment: cont empiric rx for sepsis s/p neutropenia switched to IV acyclovir - no clearcut HSV infection would recommend skin bx await results of mouth bx
[2017-05-05] MEDS: Vancomycin 1 gm/NS 200 ml 1 GM/200 ML BAG IVPB SCH (17:56)
[2017-05-05] MEDS ORDERED: PPN #3 IV ONE (18:00)
[2017-05-05] MEDS: Micafungin 100 MG in Sodium Chloride 0.9% 100 ML IV SCH (19:43)
--- NOTE | 2017-05-05 20:29 | CP.PCM.CON ---
History of Present Illness - History of Present Illness History of Present Illness: Surgery Consult Note for Dr. Briggs Reason for Consult: skin lesion requiring biopsy 82 F with PMH of anemia, COPD, rheumatoid arthritis, gastritis and HTN was admitted for fevers, oral ulcers and pancytopenia. Primary consulted surgery for biopsy of skin lesion in order to obtain diagnosis. Patient states that she has had these skin lesion for about 2 months. She reports that she was having pain one day and that is how she discovered the lesions. It started on her buttocks and thought she had shingles then they began develop in her mouth as well. Patient recently had a biopsy done of oral ulcers by Dr. Oneill, results still pending. Patient currently denying any pain. She states that her mouth hurts when she tries to eat or drink anything. She reports to having decreased oral intake as a result of these oral lesions. Admits to subjective fever/ chills. Patient has no other complaint at this time. PMD: Dr. Tyrell Maya PMH: anemia, COPD, rheumatoid arthritis, gastritis and HTN Meds: As per EMR Allergy: PCN PSH: tonsillectomy, cataract surgery, EGD with bx, appendectomy FH: HTN Social: denies tobacco/EtOH/illicit drug use Review of Systems - Review of Systems All systems: reviewed and no additional remarkable complaints except (mouth pain , anorexia, new skin lesions) Past Patient History - Infectious Disease Hx of Infectious Diseases: None - Tetanus Immunizations Tetanus Immunization: Unknown - Past Medical History & Family History Past Medical History?: Yes - Past Social History Smoking Status: Former Smoker - CARDIAC Hx Cardiac Disorders: Yes Hx Hypertension: Yes - PULMONARY Hx Chronic Obstructive Pulmonary Disease (COPD): Yes - NEUROLOGICAL HX Cerebrovascular Accident: Yes (2009) - HEENT Hx HEENT Problems: Yes Hx Cataracts: Yes (both eyes) - RENAL Hx Chronic Kidney Disease: No - ENDOCRINE/METABOLIC Hx Diabetes Mellitus Type 2: Yes (no meds) - HEMATOLOGICAL/ONCOLOGICAL Hx Anemia: Yes (HX.) Hx Blood Transfusions: Yes - INTEGUMENTARY Hx Dermatological Problems: Yes Other/Comment: shingles L Buttock - MUSCULOSKELETAL/RHEUMATOLOGICAL Hx Falls: No - GASTROINTESTINAL Hx Gastrointestinal Disorders: Yes Hx Gastritis: Yes - GENITOURINARY/GYNECOLOGICAL Hx Genitourinary Disorders: No - PSYCHIATRIC Hx Substance Use: No - SURGICAL HISTORY Hx Surgeries: Yes Hx Tonsillectomy: Yes - ANESTHESIA Hx Anesthesia: Yes Hx Anesthesia Reactions: No Hx Malignant Hyperthermia: No Meds Allergies/Adverse Reactions: Allergies Allergy/AdvReac Type Severity Reaction Status Date / Time Penicillins Allergy Intermediate Verified 04/25/17 19:01 - Medications Medications: Current Medications Acetaminophen (Tylenol 325mg Tab) 650 mg PO Q4 PRN PRN Reason: Fever >100.4 F Last Admin: 04/30/17 22:58 Dose: 650 mg Acetaminophen (Tylenol 325mg Tab) 650 mg PO Q6 PRN PRN Reason: Pain, Mild (1-3) Last Admin: 05/04/17 14:39 Dose: 650 mg Enoxaparin Sodium (Lovenox) 30 mg SC DAILY [facility] Last Admin: 05/05/17 10:05 Dose: Not Given Ergocalciferol (Drisdol 50,000 Intl Units Cap) 1 cap PO QWK [facility] Last Admin: 05/03/17 10:25 Dose: 1 cap Folic Acid (Folic Acid) 1 mg PO DAILY [facility] Last Admin: 05/05/17 10:01 Dose: Not Given Vancomycin/Sodium Chloride (Vancomycin 1 Gm/Ns 200 Ml) 1 gm in 200 mls @ 133.333 mls/hr IVPB Q24H [facility] Stop: 05/07/17 18:01 Last Admin: 05/05/17 17:56 Dose: 133.333 mls/hr Micafungin Sodium 100 mg/ (Sodium Chloride) 100 mls @ 100 mls/hr IV Q24H [facility] Last Admin: 05/05/17 19:43 Dose: 100 mls/hr Metronidazole (Flagyl) 500 mg in 100 mls @ 100 mls/hr IVPB Q8 [facility] Last Admin: 05/05/17 13:38 Dose: 100 mls/hr Aztreonam 2 gm/ Dextrose 100 mls @ 200 mls/hr IVPB Q8H [facility] Last Admin: 05/05/17 16:47 Dose: 200 mls/hr Fat Emulsion Intravenous (Intralipid 20%) 250 mls @ 43 mls/hr IV MWF@1800 [facility] Stop: 05/09/17 18:01 Last Admin: 05/03/17 21:00 Dose: 43 mls/hr Amino Acids (Clinimix 4.25/5 % "E" (1000 Ml)) 1,000 mls @ 43 mls/hr IV .[id number] ONE Stop: 05/06/17 17:15 Acyclovir 700 mg/ Dextrose 250 mls @ 166.667 mls/hr IV Q12H [facility] Last Admin: 05/05/17 14:39 Dose: 166.667 mls/hr Metoprolol Succinate (Toprol Xl) 12.5 mg PO BID [facility] Last Admin: 05/05/17 17:56 Dose: 12.5 mg Morphine Sulfate (Morphine) 2 mg IVP Q4 PRN PRN Reason: Pain, moderate (4-7) Last Admin: 05/03/17 06:48 Dose: 2 mg Multivitamins/Minerals (Therapeutic-M Tab) 1 tab PO DAILY [facility] Last Admin: 05/05/17 10:02 Dose: Not Given Mupirocin (Bactroban Ointment) 0 gm TOP BID [facility] Last Admin: 05/05/17 19:43 Dose: Not Given Mupirocin (Bactroban Ointment) 0 gm TOP DAILY [facility] Last Admin: 05/05/17 09:42 Dose: 1 applic Saliva Substitute (First Magic Mouthwash) 5 ml PO Q4H [facility] Last Admin: 05/05/17 17:56 Dose: 5 ml Fluticasone/Salmeterol (Advair Diskus 250/50) 1 puff INH RQ12 [facility] Last Admin: 04/28/17 08:00 Dose: 1 puff Zolpidem Tartrate (Ambien) 5 mg PO HS PRN PRN Reason: Insomnia Physical Exam - Constitutional Appears: No Acute Distress - Head Exam Head Exam: ATRAUMATIC, NORMOCEPHALIC - Eye Exam Eye Exam: Normal appearance - ENT Exam ENT Exam: Mucous Membranes Dry Additional comments: thick yellow secretions in mouth - likely discharge from oral ulcers - Respiratory Exam Respiratory Exam: NORMAL BREATHING PATTERN - Cardiovascular Exam Cardiovascular Exam: REGULAR RHYTHM - GI/Abdominal Exam GI & Abdominal Exam: Soft. absent: Tenderness - Extremities Exam Extremities exam: Negative for: pedal edema Additional comments: increased pigmentation on extensor surface of upper extremities bilaterally - Neurological Exam Neurological exam: Alert, Oriented x3 - Psychiatric Exam Psychiatric exam: Normal Affect, Normal Mood - Skin Skin Exam: Dry, Warm Additional comments: multiple ulcers on left buttock, oral mucosa, and left 3rd digit Results - Vital Signs Recent Vital Signs: Last Vital Signs Temp 96 F L 05/05/17 17:04 Pulse 75 05/05/17 17:04 Resp 20 05/05/17 17:04 BP 132/62 05/05/17 17:04 Pulse Ox 96 05/05/17 17:04 - Labs Result Diagrams: 05/05/17 07:27 05/05/17 07:27 Labs: Laboratory Results - last 24 hr 05/05/17 05/05/17 07:27 07:27 WBC 14.5 H RBC 2.55 L Hgb 8.2 L Hct 25.1 L MCV 98.4 MCH 32.1 H MCHC 32.6 L RDW 16.2 H Plt Count 40 L D MPV 10.3 Sodium 142 Potassium 3.5 L Chloride 108 H Carbon Dioxide 27 Anion Gap 11 BUN 25 H Creatinine 0.7 Est GFR ( Amer) > 60 Est GFR (Non-Af Amer) > 60 Random Glucose 101 Calcium 8.3 L Total Bilirubin 1.6 H AST 80 H ALT 46 Alkaline Phosphatase 153 H Total Protein 5.5 L Albumin 3.1 L Globulin 2.4 Albumin/Globulin Ratio 1.3 Assessment & Plan - Assessment and Plan (Free Text) Plan: 82 F with numerous ulcerative skin lesions on hand, buttock and in mouth -f/u oral ulcer biopsy results -Possible punch biopsy of skin lesions -Analgesics PRN -Management as per primary -Discussed with Dr. Chester Lacey PGY1
[2017-05-06] MEDS: Aztreonam 2 GM in Dextrose 5% In Water 100 ML IVPB SCH ×3 (00:50→16:42)
[2017-05-06] MEDS: Mag&Al/Simet/Diphen/Lido 237 ML KIT PO SCH ×6 (02:59→21:47)
[2017-05-06] MEDS: metroNIDAZOLE IV 500 mg/100 ml 500 MG/100 ML BAG IVPB SCH ×3 (05:21→22:12)
[2017-05-06 07:13] LABS: BASO # 0.2 K/uL (0.0-0.2); BASO % 0.7 % (0.0-2.0); EOS # 0.3 K/uL (0.0-0.7); EOS % 1.2 % (0.0-4.0); HEMATOCRIT 22.3 % (34.0-47.0); LYMPH # 3.9 K/uL (1.0-4.3); LYMPH % 16.1 % (20.0-40.0); MEAN CELL VOLUME 97.5 fL (81.0-99.0); MEAN CORPUSCULAR HEMOGLOBIN 32.3 pg (27.0-31.0); MEAN CORPUSCULAR HGB CONC 33.1 g/dL (33.0-37.0); MEAN PLATELET VOLUME 10.2 fL (7.2-11.7); MONO # 0.1 K/uL (0.0-0.8); MONO % 0.2 % (0.0-10.0); NRBC % 0.3 % (0.0-2.0); RED CELL DISTRIBUTION WIDTH 16.4 % (11.5-14.5)
[2017-05-06 07:17] LABS: WHITE BLOOD COUNT 24.3 K/uL (4.8-10.8)
[2017-05-06 07:41] LABS: ALB/GLOB RATIO 1.2 (1.0-2.1); ALKALINE PHOSPHATASE 143 U/L (38-126); ALT/SGPT 44 U/L (9-52); AST/SGOT 52 U/L (14-36); BILIRUBIN,TOTAL 0.9 mg/dL (0.2-1.3); BLOOD UREA NITROGEN 19 mg/dL (7-17); CARBON DIOXIDE 29 mmol/L (22-30); CHLORIDE 106 mmol/L (98-107); GFR AFRICAN-AMERICAN > 60; GLUCOSE,RANDOM 113 mg/dL (65-105); POTASSIUM 3.4 mmol/L (3.6-5.2); SODIUM 140 mmol/L (132-148)
[2017-05-06] MEDS: Multivitamin With Minerals Tab PO SCH (10:42)
[2017-05-06] MEDS: Metoprolol Succinate 12.5 mg XL PO SCH ×2 (10:42→21:48)
[2017-05-06] MEDS: Enoxaparin 30 mg Syringe SC SCH (10:44)
--- NOTE | 2017-05-06 12:00 | CP.PCM.PN ---
Subjective - Date & Time of Evaluation Date of Evaluation: 05/06/17 Time of Evaluation: 08:00 - Subjective Subjective: iv rx in progress Objective - Vital Signs/Intake and Output Vital Signs (last 24 hours): Temp Pulse Resp BP Pulse Ox 98.2 F 75 20 134/77 94 L 05/06/17 07:00 05/06/17 07:00 05/06/17 07:00 05/06/17 07:00 05/06/17 07:00 - Medications Medications: Current Medications Acetaminophen (Tylenol 325mg Tab) 650 mg PO Q4 PRN PRN Reason: Fever >100.4 F Last Admin: 04/30/17 22:58 Dose: 650 mg Acetaminophen (Tylenol 325mg Tab) 650 mg PO Q6 PRN PRN Reason: Pain, Mild (1-3) Last Admin: 05/04/17 14:39 Dose: 650 mg Enoxaparin Sodium (Lovenox) 30 mg SC DAILY [facility] Last Admin: 05/06/17 10:44 Dose: Not Given Ergocalciferol (Drisdol 50,000 Intl Units Cap) 1 cap PO QWK [facility] Last Admin: 05/03/17 10:25 Dose: 1 cap Folic Acid (Folic Acid) 1 mg PO DAILY [facility] Last Admin: 05/06/17 10:42 Dose: 1 mg Vancomycin/Sodium Chloride (Vancomycin 1 Gm/Ns 200 Ml) 1 gm in 200 mls @ 133.333 mls/hr IVPB Q24H [facility] Stop: 05/07/17 18:01 Last Admin: 05/05/17 17:56 Dose: 133.333 mls/hr Micafungin Sodium 100 mg/ (Sodium Chloride) 100 mls @ 100 mls/hr IV Q24H [facility] Last Admin: 05/05/17 19:43 Dose: 100 mls/hr Metronidazole (Flagyl) 500 mg in 100 mls @ 100 mls/hr IVPB Q8 [facility] Last Admin: 05/06/17 05:21 Dose: 100 mls/hr Aztreonam 2 gm/ Dextrose 100 mls @ 200 mls/hr IVPB Q8H [facility] Last Admin: 05/06/17 08:41 Dose: 200 mls/hr Fat Emulsion Intravenous (Intralipid 20%) 250 mls @ 43 mls/hr IV MWF@1800 [facility] Stop: 05/09/17 18:01 Last Admin: 05/03/17 21:00 Dose: 43 mls/hr Amino Acids (Clinimix 4.25/5 % "E" (1000 Ml)) 1,000 mls @ 43 mls/hr IV .[id number] ONE Stop: 05/06/17 17:15 Acyclovir 700 mg/ Dextrose 250 mls @ 166.667 mls/hr IV Q12H [facility] Last Admin: 05/06/17 02:58 Dose: 166.667 mls/hr Metoprolol Succinate (Toprol Xl) 12.5 mg PO BID [facility] Last Admin: 05/06/17 10:42 Dose: 12.5 mg Multivitamins/Minerals (Therapeutic-M Tab) 1 tab PO DAILY [facility] Last Admin: 05/06/17 10:42 Dose: 1 tab Mupirocin (Bactroban Ointment) 0 gm TOP BID [facility] Last Admin: 05/06/17 10:43 Dose: 1 applic Mupirocin (Bactroban Ointment) 0 gm TOP DAILY [facility] Last Admin: 05/06/17 10:44 Dose: Not Given Saliva Substitute (First Magic Mouthwash) 5 ml PO Q4H [facility] Last Admin: 05/06/17 10:44 Dose: 5 ml Fluticasone/Salmeterol (Advair Diskus 250/50) 1 puff INH RQ12 [facility] Last Admin: 04/28/17 08:00 Dose: 1 puff Zolpidem Tartrate (Ambien) 5 mg PO HS PRN PRN Reason: Insomnia - Labs Labs: 05/06/17 07:16 05/06/17 06:43 PT 13.9 SECONDS (9.7-12.2) H 05/01/17 17:32 INR 1.2 05/01/17 17:32 APTT 25 SECONDS (21-34) 05/01/17 17:32 - Constitutional Appears: Non-toxic, Chronically Ill - Head Exam Head Exam: NORMOCEPHALIC - Eye Exam Eye Exam: PERRL - ENT Exam ENT Exam: Mucous Membranes Dry - Neck Exam Neck Exam: absent: Lymphadenopathy - Respiratory Exam Respiratory Exam: Decreased Breath Sounds - Cardiovascular Exam Cardiovascular Exam: REGULAR RHYTHM - GI/Abdominal Exam GI & Abdominal Exam: Distended, Soft - Rectal Exam Rectal Exam: Deferred - Exam Exam: NORMAL INSPECTION - Extremities Exam Extremities Exam: absent: Pedal Edema - Back Exam Back Exam: absent: CVA tenderness (L), CVA tenderness (R) - Neurological Exam Neurological Exam: Alert, Awake, Oriented x3 - Psychiatric Exam Psychiatric exam: Normal Mood - Skin Skin Exam: Dry Assessment and Plan (1) Pancytopenia Status: Acute (2) Renal insufficiency Status: Acute (3) ARF (acute renal failure) with tubular necrosis Status: Acute (4) Dehydration, severe Status: Acute - Assessment and Plan (Free Text) Assessment: for skin bx Plan: await hem follow up
--- NOTE | 2017-05-06 12:19 | PN ---
SUBJECTIVE: She is resting in bed. She is alert. Her eyes are closed. She has a growth under her fingernail on her right hand which looked like a wart, surgery took a look at this morning. She is unable to swallow well to some liquids. She is on PPN. She has multiple decubitus ulcers. She is on 4 antibiotics. She is pancytopenic; lethargic; mass in the throat, biopsied, waiting for the results. MEDICATIONS: She is on Advair, Ambien, Azactam, Bactroban cream, fat, amino acid in dextrose (Clinimix), Drisdol, Magic Mouthwash, metronidazole, folic acid, Granix, Intralipid, Lovenox, micafungin, potassium, RediTabs, Toprol, Tylenol, vancomycin, and PHYSICAL EXAMINATION: VITAL SIGNS: She has a 98.1 temperature, 86 pulse, 146/71 blood pressure, 20 respiratory rate, and 96% O2 sat on room air. HEENT: Head is atraumatic and normocephalic. She is alert. Her throat is sore. HEART: Regular rate. LUNGS: Decreased breath sounds. ABDOMEN: Soft. EXTREMITIES: No edema. LABORATORY DATA: Last labs yesterday was 142 sodium; potassium 3.5, potassium was replaced; BUN 25; creatinine 0.7, it is better. GFR is greater than 60. Sugar is 101, calcium is 8.3, total bilirubin is 1.6, AST is 80, ALT is 46, alkaline phosphates 153, total protein of 5.5. White count went up to 14.5 after Neupogen; 8.2 hemoglobin, if it drops below 8, I will transfuse her; 25.1 hematocrit; 40 platelets, which is better than what she had 20 the other day. Hepatitis screens were negative. HIV was negative. Blood parasite smear was negative. C. diff none detected. RPR none detected. She has a serum immunofixation detection. Stool was negative. She is being seen by Infectious Disease, Hematology, Oncology, Ears, Nose and Throat, Surgery. Continue with aggressive treatment and care. Hopefully, LTAC for continued treatment and care with PPN, IV antibiotics until tests comeback. Continue aggressive treatment and care. Also, Cardiology is on the case. Tyrell Maya DO ARIEL
--- NOTE | 2017-05-06 16:34 | CP.PCM.PN ---
Subjective - Date & Time of Evaluation Date of Evaluation: 05/06/17 Time of Evaluation: 16:32 - Subjective Subjective: Surgery: Dr. Briggs Pt seen and examined. Ulcers persist. She has discomfort from ulcers. No F/C. Objective - Vital Signs/Intake and Output Vital Signs (last 24 hours): Temp Pulse Resp BP Pulse Ox 98.2 F 75 20 134/77 94 L 05/06/17 07:00 05/06/17 07:00 05/06/17 07:00 05/06/17 07:00 05/06/17 07:00 - Medications Medications: Current Medications Acetaminophen (Tylenol 325mg Tab) 650 mg PO Q4 PRN PRN Reason: Fever >100.4 F Last Admin: 04/30/17 22:58 Dose: 650 mg Acetaminophen (Tylenol 325mg Tab) 650 mg PO Q6 PRN PRN Reason: Pain, Mild (1-3) Last Admin: 05/04/17 14:39 Dose: 650 mg Enoxaparin Sodium (Lovenox) 30 mg SC DAILY [facility] Last Admin: 05/06/17 10:44 Dose: Not Given Ergocalciferol (Drisdol 50,000 Intl Units Cap) 1 cap PO QWK [facility] Last Admin: 05/03/17 10:25 Dose: 1 cap Folic Acid (Folic Acid) 1 mg PO DAILY [facility] Last Admin: 05/06/17 10:42 Dose: 1 mg Vancomycin/Sodium Chloride (Vancomycin 1 Gm/Ns 200 Ml) 1 gm in 200 mls @ 133.333 mls/hr IVPB Q24H [facility] Stop: 05/07/17 18:01 Last Admin: 05/05/17 17:56 Dose: 133.333 mls/hr Micafungin Sodium 100 mg/ (Sodium Chloride) 100 mls @ 100 mls/hr IV Q24H [facility] Last Admin: 05/05/17 19:43 Dose: 100 mls/hr Metronidazole (Flagyl) 500 mg in 100 mls @ 100 mls/hr IVPB Q8 [facility] Last Admin: 05/06/17 14:47 Dose: 100 mls/hr Aztreonam 2 gm/ Dextrose 100 mls @ 200 mls/hr IVPB Q8H [facility] Last Admin: 05/06/17 08:41 Dose: 200 mls/hr Fat Emulsion Intravenous (Intralipid 20%) 250 mls @ 43 mls/hr IV MWF@1800 [facility] Stop: 05/09/17 18:01 Last Admin: 05/03/17 21:00 Dose: 43 mls/hr Amino Acids (Clinimix 4.25/5 % "E" (1000 Ml)) 1,000 mls @ 43 mls/hr IV .[id number] ONE Stop: 05/06/17 17:15 Acyclovir 700 mg/ Dextrose 250 mls @ 166.667 mls/hr IV Q12H [facility] Last Admin: 05/06/17 14:48 Dose: 166.667 mls/hr Multivitamins/Vitamin C 10 ml/ (Amino Acids) 1,010 mls @ 43 mls/hr IV .[id number] [facility] Stop: 05/07/17 17:29 Potassium Chloride (Potassium Chloride 10 Meq/100 Ml) 10 meq in 100 mls @ 100 mls/hr IVPB ONCE ONE Stop: 05/06/17 18:59 Metoprolol Succinate (Toprol Xl) 12.5 mg PO BID [facility] Last Admin: 05/06/17 10:42 Dose: 12.5 mg Multivitamins/Minerals (Therapeutic-M Tab) 1 tab PO DAILY [facility] Last Admin: 05/06/17 10:42 Dose: 1 tab Mupirocin (Bactroban Ointment) 0 gm TOP BID [facility] Last Admin: 05/06/17 10:43 Dose: 1 applic Mupirocin (Bactroban Ointment) 0 gm TOP DAILY [facility] Last Admin: 05/06/17 10:44 Dose: Not Given Saliva Substitute (First Magic Mouthwash) 5 ml PO Q4H [facility] Last Admin: 05/06/17 14:47 Dose: 5 ml Fluticasone/Salmeterol (Advair Diskus 250/50) 1 puff INH RQ12 [facility] Last Admin: 04/28/17 08:00 Dose: 1 puff Zolpidem Tartrate (Ambien) 5 mg PO HS PRN PRN Reason: Insomnia - Labs Labs: 05/06/17 07:16 05/06/17 06:43 PT 13.9 SECONDS (9.7-12.2) H 05/01/17 17:32 INR 1.2 05/01/17 17:32 APTT 25 SECONDS (21-34) 05/01/17 17:32 - Constitutional Appears: Non-toxic, No Acute Distress, Chronically Ill - Head Exam Head Exam: ATRAUMATIC, NORMOCEPHALIC - Eye Exam Eye Exam: EOMI - ENT Exam ENT Exam: Mucous Membranes Moist - Neck Exam Neck Exam: Full ROM - Respiratory Exam Respiratory Exam: NORMAL BREATHING PATTERN. absent: Accessory Muscle Use, Respiratory Distress - GI/Abdominal Exam GI & Abdominal Exam: Soft - Extremities Exam Additional comments: R thumb, questionable plantar wart on terminal aspect L Index finger, questionable paronchyma at nail bed - Neurological Exam Neurological Exam: Alert, Awake, Oriented x3 - Skin Additional comments: L buttock, 3 stage II pressure ulcers ~ 2 x 1 cm Assessment and Plan - Assessment and Plan (Free Text) Assessment: 82 F w. ulcers -no immediate plans for bx at this time, will bx if symptoms worsen -pressure ulcers: local wound care -L parnonchyma: soak w. saline and betadine 20min TID -d/w attending Naina PGY3
[2017-05-06] MEDS: Vancomycin 1 gm/NS 200 ml 1 GM/200 ML BAG IVPB SCH (17:45)
[2017-05-06] MEDS: Fat Emulsion 20% IV 250 ML IV SCH (17:46)
[2017-05-06] MEDS ORDERED: PPN # 4 IV SCH (18:00)
[2017-05-06 18:33] LABS: DENGUE FEVER AB (IGM) 0.27
[2017-05-06] MEDS: Micafungin 100 MG in Sodium Chloride 0.9% 100 ML IV SCH (21:47)
[2017-05-07] MEDS: DEXTROSE 5% IVPB SCH ×2 (01:09→08:40)
[2017-05-07] MEDS: WATER IVPB SCH ×2 (01:09→08:40)
[2017-05-07] MEDS: AZTREONAM IVPB SCH ×3 (01:09→17:25)
[2017-05-07] MEDS: Mag&Al/Simet/Diphen/Lido 237 ML KIT PO SCH ×6 (02:27→22:34)
[2017-05-07 06:24] LABS: HEMATOCRIT 21.1 % (34.0-47.0); MEAN CELL VOLUME 97.5 fL (81.0-99.0); MEAN CORPUSCULAR HEMOGLOBIN 32.3 pg (27.0-31.0); MEAN CORPUSCULAR HGB CONC 33.2 g/dL (33.0-37.0); MEAN PLATELET VOLUME 9.6 fL (7.2-11.7); RED CELL DISTRIBUTION WIDTH 16.3 % (11.5-14.5); WHITE BLOOD COUNT 32.1 K/uL (4.8-10.8)
[2017-05-07 06:41] LABS: ALB/GLOB RATIO 0.8 (1.0-2.1); ALKALINE PHOSPHATASE 137 U/L (38-126); ALT/SGPT 47 U/L (9-52); AST/SGOT 38 U/L (14-36); BILIRUBIN,TOTAL 0.7 mg/dL (0.2-1.3); BLOOD UREA NITROGEN 14 mg/dL (7-17); CALCIUM 7.8 mg/dl (8.6-10.4); CARBON DIOXIDE 34 mmol/L (22-30); CHLORIDE 104 mmol/L (98-107); GFR AFRICAN-AMERICAN > 60; GLUCOSE,RANDOM 103 mg/dL (65-105); POTASSIUM 3.3 mmol/L (3.6-5.2); SODIUM 139 mmol/L (132-148); TOTAL PROTEIN 5.8 g/dL (6.3-8.3)
[2017-05-07] MEDS: metroNIDAZOLE IV 500 mg/100 ml 500 MG/100 ML BAG IVPB SCH ×3 (06:46→22:13)
[2017-05-07] MEDS: Metoprolol Succinate 12.5 mg XL PO SCH ×2 (10:53→17:31)
[2017-05-07] MEDS: Multivitamin With Minerals Tab PO SCH (10:53)
--- NOTE | 2017-05-07 11:49 | CP.PCM.PN ---
Subjective - Date & Time of Evaluation Date of Evaluation: 05/07/17 Time of Evaluation: 09:00 - Subjective Subjective: wbc higher on neupogen denies fever appears weak Objective - Vital Signs/Intake and Output Vital Signs (last 24 hours): Temp Pulse Resp BP Pulse Ox 98.3 F 71 20 137/69 98 05/07/17 08:24 05/07/17 08:24 05/07/17 08:24 05/07/17 10:52 05/07/17 08:24 - Medications Medications: Current Medications Acetaminophen (Tylenol 325mg Tab) 650 mg PO Q4 PRN PRN Reason: Fever >100.4 F Last Admin: 04/30/17 22:58 Dose: 650 mg Acetaminophen (Tylenol 325mg Tab) 650 mg PO Q6 PRN PRN Reason: Pain, Mild (1-3) Last Admin: 05/04/17 14:39 Dose: 650 mg Enoxaparin Sodium (Lovenox) 30 mg SC DAILY [facility] Last Admin: 05/06/17 10:44 Dose: Not Given Ergocalciferol (Drisdol 50,000 Intl Units Cap) 1 cap PO QWK [facility] Last Admin: 05/03/17 10:25 Dose: 1 cap Folic Acid (Folic Acid) 1 mg PO DAILY [facility] Last Admin: 05/07/17 10:52 Dose: Not Given Vancomycin/Sodium Chloride (Vancomycin 1 Gm/Ns 200 Ml) 1 gm in 200 mls @ 133.333 mls/hr IVPB Q24H [facility] Stop: 05/07/17 18:01 Last Admin: 05/06/17 17:45 Dose: 133.333 mls/hr Micafungin Sodium 100 mg/ (Sodium Chloride) 100 mls @ 100 mls/hr IV Q24H [facility] Last Admin: 05/06/17 21:47 Dose: 100 mls/hr Metronidazole (Flagyl) 500 mg in 100 mls @ 100 mls/hr IVPB Q8 [facility] Last Admin: 05/07/17 06:46 Dose: 100 mls/hr Fat Emulsion Intravenous (Intralipid 20%) 250 mls @ 43 mls/hr IV MWF@1800 [facility] Stop: 05/09/17 18:01 Last Admin: 05/06/17 17:46 Dose: 43 mls/hr Acyclovir 700 mg/ Dextrose 250 mls @ 166.667 mls/hr IV Q12H [facility] Last Admin: 05/07/17 03:26 Dose: 166.667 mls/hr Multivitamins/Vitamin C 10 ml/ (Amino Acids) 1,010 mls @ 43 mls/hr IV .[id number] [facility] Stop: 05/07/17 17:29 Last Admin: 05/06/17 17:45 Dose: 43 mls/hr Aztreonam 2 gm/ Sodium (Chloride) 250 mls @ 200 mls/hr IVPB Q8H [facility] Metoprolol Succinate (Toprol Xl) 12.5 mg PO BID [facility] Last Admin: 05/07/17 10:53 Dose: Not Given Multivitamins/Minerals (Therapeutic-M Tab) 1 tab PO DAILY [facility] Last Admin: 05/07/17 10:53 Dose: Not Given Mupirocin (Bactroban Ointment) 0 gm TOP BID [facility] Last Admin: 05/07/17 10:52 Dose: Not Given Mupirocin (Bactroban Ointment) 0 gm TOP DAILY [facility] Last Admin: 05/07/17 10:52 Dose: Not Given Saliva Substitute (First Magic Mouthwash) 5 ml PO Q4H [facility] Last Admin: 05/07/17 10:57 Dose: 5 ml Fluticasone/Salmeterol (Advair Diskus 250/50) 1 puff INH RQ12 [facility] Last Admin: 04/28/17 08:00 Dose: 1 puff Zolpidem Tartrate (Ambien) 5 mg PO HS PRN PRN Reason: Insomnia - Labs Labs: 05/07/17 06:17 05/07/17 06:17 PT 13.9 SECONDS (9.7-12.2) H 05/01/17 17:32 INR 1.2 05/01/17 17:32 APTT 25 SECONDS (21-34) 05/01/17 17:32 - Constitutional Appears: Non-toxic, Chronically Ill - Head Exam Head Exam: NORMOCEPHALIC - Eye Exam Eye Exam: PERRL. absent: Scleral icterus - ENT Exam ENT Exam: Mucous Membranes Dry - Neck Exam Neck Exam: absent: Lymphadenopathy - Respiratory Exam Respiratory Exam: Decreased Breath Sounds, Clear to Ausculation Bilateral - Cardiovascular Exam Cardiovascular Exam: REGULAR RHYTHM, +S1, +S2 - GI/Abdominal Exam GI & Abdominal Exam: Distended, Soft. absent: Tenderness - Rectal Exam Rectal Exam: Deferred - Exam Exam: NORMAL INSPECTION - Extremities Exam Extremities Exam: absent: Pedal Edema - Back Exam Back Exam: absent: CVA tenderness (L), CVA tenderness (R) - Neurological Exam Neurological Exam: Alert, Awake, Oriented x3 - Psychiatric Exam Psychiatric exam: Normal Mood - Skin Skin Exam: Dry Assessment and Plan (1) Pancytopenia Status: Acute (2) Renal insufficiency Status: Acute (3) ARF (acute renal failure) with tubular necrosis Status: Acute (4) Dehydration, severe Status: Acute
[2017-05-07] MEDS: Enoxaparin 30 mg Syringe SC SCH (12:00)
--- NOTE | 2017-05-07 13:47 | CP.PCM.PN ---
Subjective - Date & Time of Evaluation Date of Evaluation: 05/06/17 Time of Evaluation: 13:00 - Subjective Subjective: DISCUSSED WITH DR. HOANG DURATION FOR IV ABX. PER HIM PT IS TO CONTINUE ALL IV ANTIMICROBIALS AND ANTIVIRAL VIA IV FOR 7 MORE DAY UPON D/C. LINING MECHANIC DISCUSSED WITH DR. MORRISON PLAN FOR D/C AND MADE HIM AWARE OF THE ABX DURATION. PER DR. MORRISON HE SPOKE W THE PT'S FAMILY AND RECOMMENDS LTACH. LTACH WOULD BE APPROPRIATE NOW DUE TO THE AMOUNT OF IV ABX THAT PT IS ON. SW TO CONTINUE REFERRAL PROCESS. NO FURTHER ORDERS AT THIS TIME. Objective - Vital Signs/Intake and Output Vital Signs (last 24 hours): Temp Pulse Resp BP Pulse Ox 98.3 F 71 20 137/69 98 05/07/17 08:24 05/07/17 08:24 05/07/17 08:24 05/07/17 10:52 05/07/17 08:24 - Medications Medications: Current Medications Acetaminophen (Tylenol 325mg Tab) 650 mg PO Q4 PRN PRN Reason: Fever >100.4 F Last Admin: 04/30/17 22:58 Dose: 650 mg Acetaminophen (Tylenol 325mg Tab) 650 mg PO Q6 PRN PRN Reason: Pain, Mild (1-3) Last Admin: 05/04/17 14:39 Dose: 650 mg Ergocalciferol (Drisdol 50,000 Intl Units Cap) 1 cap PO QWK [facility] Last Admin: 05/03/17 10:25 Dose: 1 cap Folic Acid (Folic Acid) 1 mg PO DAILY [facility] Last Admin: 05/07/17 10:52 Dose: Not Given Vancomycin/Sodium Chloride (Vancomycin 1 Gm/Ns 200 Ml) 1 gm in 200 mls @ 133.333 mls/hr IVPB Q24H [facility] Stop: 05/07/17 18:01 Last Admin: 05/06/17 17:45 Dose: 133.333 mls/hr Micafungin Sodium 100 mg/ (Sodium Chloride) 100 mls @ 100 mls/hr IV Q24H [facility] Last Admin: 05/06/17 21:47 Dose: 100 mls/hr Metronidazole (Flagyl) 500 mg in 100 mls @ 100 mls/hr IVPB Q8 [facility] Last Admin: 05/07/17 06:46 Dose: 100 mls/hr Fat Emulsion Intravenous (Intralipid 20%) 250 mls @ 43 mls/hr IV MWF@1800 [facility] Stop: 05/09/17 18:01 Last Admin: 05/06/17 17:46 Dose: 43 mls/hr Acyclovir 700 mg/ Dextrose 250 mls @ 166.667 mls/hr IV Q12H [facility] Last Admin: 05/07/17 03:26 Dose: 166.667 mls/hr Multivitamins/Vitamin C 10 ml/ (Amino Acids) 1,010 mls @ 43 mls/hr IV .[id number] [facility] Stop: 05/07/17 17:29 Last Admin: 05/06/17 17:45 Dose: 43 mls/hr Aztreonam 2 gm/ Sodium (Chloride) 250 mls @ 200 mls/hr IVPB Q8H [facility] Multivitamins/Vitamin C 10 ml/ (Amino Acids) 1,010 mls @ 43 mls/hr IV .[id number] [facility] Stop: 05/08/17 17:29 Metoprolol Succinate (Toprol Xl) 12.5 mg PO BID [facility] Last Admin: 05/07/17 10:53 Dose: Not Given Multivitamins/Minerals (Therapeutic-M Tab) 1 tab PO DAILY [facility] Last Admin: 05/07/17 10:53 Dose: Not Given Mupirocin (Bactroban Ointment) 0 gm TOP BID [facility] Last Admin: 05/07/17 10:52 Dose: Not Given Mupirocin (Bactroban Ointment) 0 gm TOP DAILY [facility] Last Admin: 05/07/17 10:52 Dose: Not Given Saliva Substitute (First Magic Mouthwash) 5 ml PO Q4H [facility] Last Admin: 05/07/17 10:57 Dose: 5 ml Fluticasone/Salmeterol (Advair Diskus 250/50) 1 puff INH RQ12 [facility] Last Admin: 04/28/17 08:00 Dose: 1 puff Zolpidem Tartrate (Ambien) 5 mg PO HS PRN PRN Reason: Insomnia - Labs Labs: 05/07/17 06:17 05/07/17 06:17 PT 13.9 SECONDS (9.7-12.2) H 05/01/17 17:32 INR 1.2 05/01/17 17:32 APTT 25 SECONDS (21-34) 05/01/17 17:32
--- NOTE | 2017-05-07 14:33 | PN ---
DATE: SUBJECTIVE: I saw Lilliam resting in bed. Right now, this is the most alert she has been actually feeling still better, looking for food, is still on TPN, and on this patient throat is bad, being more involved. PHYSICAL EXAMINATION: VITAL SIGNS: She has 98.6 temperature, 1 respiratory rate, 97% O2 sat. HEENT: Head is atraumatic, normocephalic. Throat is still red and inflamed. NECK: Supple. HEART: Regular rate. LUNGS: Decreased breath sounds, but clear. ABDOMEN: Soft. Obese. Nontender. EXTREMITIES: No edema. MEDICATIONS: Currently on acyclovir, Advair, Ambien, aztreonam, Bactroban, Drisdol, Magic Mouthwash, Flagyl, folic acid, Intralipid, Lovenox, micafungin, vitamins, Toprol, Tylenol, acetaminophen, and vancomycin. LABORATORY DATA: She has 24.3 white count, antibiotics, hemoglobin blood cells with a 22.3 hematocrit with 54 platelets sodium, potassium 3.4, BUN GFR is greater than AST is 52, ALT is 44, alk phos 143, total protein. She is seen by Surgery, Infectious Disease, Hematology, Oncology. We will continue with aggressive treatment and care. . Tyrell Maya DO MTDD
--- NOTE | 2017-05-07 16:30 | CP.PCM.PN ---
Subjective - Date & Time of Evaluation Date of Evaluation: 05/07/17 Time of Evaluation: 16:28 - Subjective Subjective: The patient says she is feeling slightly better, less pain, mouth sores improved. Remains afebrile, appetite still poor. Objective - Vital Signs/Intake and Output Vital Signs (last 24 hours): Temp Pulse Resp BP Pulse Ox 97.8 F 70 20 156/70 H 98 05/07/17 15:53 05/07/17 15:53 05/07/17 15:53 05/07/17 15:53 05/07/17 15:53 Intake and Output: 05/07/17 05/07/17 06:59 18:59 Intake Total 0 Balance 0 - Medications Medications: Current Medications Acetaminophen (Tylenol 325mg Tab) 650 mg PO Q4 PRN PRN Reason: Fever >100.4 F Last Admin: 04/30/17 22:58 Dose: 650 mg Acetaminophen (Tylenol 325mg Tab) 650 mg PO Q6 PRN PRN Reason: Pain, Mild (1-3) Last Admin: 05/04/17 14:39 Dose: 650 mg Ergocalciferol (Drisdol 50,000 Intl Units Cap) 1 cap PO QWK [facility] Last Admin: 05/03/17 10:25 Dose: 1 cap Folic Acid (Folic Acid) 1 mg PO DAILY [facility] Last Admin: 05/07/17 10:52 Dose: Not Given Vancomycin/Sodium Chloride (Vancomycin 1 Gm/Ns 200 Ml) 1 gm in 200 mls @ 133.333 mls/hr IVPB Q24H [facility] Stop: 05/07/17 18:01 Last Admin: 05/06/17 17:45 Dose: 133.333 mls/hr Micafungin Sodium 100 mg/ (Sodium Chloride) 100 mls @ 100 mls/hr IV Q24H [facility] Last Admin: 05/06/17 21:47 Dose: 100 mls/hr Metronidazole (Flagyl) 500 mg in 100 mls @ 100 mls/hr IVPB Q8 [facility] Last Admin: 05/07/17 14:13 Dose: 100 mls/hr Fat Emulsion Intravenous (Intralipid 20%) 250 mls @ 43 mls/hr IV MWF@1800 [facility] Stop: 05/09/17 18:01 Last Admin: 05/06/17 17:46 Dose: 43 mls/hr Acyclovir 700 mg/ Dextrose 250 mls @ 166.667 mls/hr IV Q12H [facility] Last Admin: 05/07/17 03:26 Dose: 166.667 mls/hr Multivitamins/Vitamin C 10 ml/ (Amino Acids) 1,010 mls @ 43 mls/hr IV .[id number] [facility] Stop: 05/07/17 17:29 Last Admin: 05/06/17 17:45 Dose: 43 mls/hr Aztreonam 2 gm/ Sodium (Chloride) 250 mls @ 200 mls/hr IVPB Q8H [facility] Multivitamins/Vitamin C 10 ml/ (Amino Acids) 1,010 mls @ 43 mls/hr IV .[id number] [facility] Stop: 05/08/17 17:29 Metoprolol Succinate (Toprol Xl) 12.5 mg PO BID [facility] Last Admin: 05/07/17 10:53 Dose: Not Given Multivitamins/Minerals (Therapeutic-M Tab) 1 tab PO DAILY [facility] Last Admin: 05/07/17 10:53 Dose: Not Given Mupirocin (Bactroban Ointment) 0 gm TOP BID [facility] Last Admin: 05/07/17 10:52 Dose: Not Given Mupirocin (Bactroban Ointment) 0 gm TOP DAILY [facility] Last Admin: 05/07/17 10:52 Dose: Not Given Saliva Substitute (First Magic Mouthwash) 5 ml PO Q4H [facility] Last Admin: 05/07/17 14:16 Dose: 5 ml Fluticasone/Salmeterol (Advair Diskus 250/50) 1 puff INH RQ12 [facility] Last Admin: 04/28/17 08:00 Dose: 1 puff Zolpidem Tartrate (Ambien) 5 mg PO HS PRN PRN Reason: Insomnia - Labs Labs: 05/07/17 06:17 05/07/17 06:17 PT 13.9 SECONDS (9.7-12.2) H 05/01/17 17:32 INR 1.2 05/01/17 17:32 APTT 25 SECONDS (21-34) 05/01/17 17:32 Assessment and Plan (1) Pancytopenia Assessment & Plan: Pancytopenia- much improved, final bone marrow path still pending. Neupogen D/Nitesh yesterday. hemoglobin dropped so patient getting 1 unit of PRBCs Status: Acute
--- NOTE | 2017-05-07 16:35 | CP.PCM.PN ---
Subjective - Date & Time of Evaluation Date of Evaluation: 05/07/17 Time of Evaluation: 07:00 - Subjective Subjective: SURGERY PROGRESS NOTE FOR DR. RODRIGUEZ Patient seen and examined at bedside. She reports dry mouth .She is feeling a little better. She refused to let us examine her hand or buttock area. She also refused the betadine soaks. Objective - Vital Signs/Intake and Output Vital Signs (last 24 hours): Temp Pulse Resp BP Pulse Ox 97.8 F 70 20 156/70 H 98 05/07/17 15:53 05/07/17 15:53 05/07/17 15:53 05/07/17 15:53 05/07/17 15:53 Intake and Output: 05/07/17 05/07/17 06:59 18:59 Intake Total 0 Balance 0 - Medications Medications: Current Medications Acetaminophen (Tylenol 325mg Tab) 650 mg PO Q4 PRN PRN Reason: Fever >100.4 F Last Admin: 04/30/17 22:58 Dose: 650 mg Acetaminophen (Tylenol 325mg Tab) 650 mg PO Q6 PRN PRN Reason: Pain, Mild (1-3) Last Admin: 05/04/17 14:39 Dose: 650 mg Ergocalciferol (Drisdol 50,000 Intl Units Cap) 1 cap PO QWK [facility] Last Admin: 05/03/17 10:25 Dose: 1 cap Folic Acid (Folic Acid) 1 mg PO DAILY [facility] Last Admin: 05/07/17 10:52 Dose: Not Given Vancomycin/Sodium Chloride (Vancomycin 1 Gm/Ns 200 Ml) 1 gm in 200 mls @ 133.333 mls/hr IVPB Q24H [facility] Stop: 05/07/17 18:01 Last Admin: 05/06/17 17:45 Dose: 133.333 mls/hr Micafungin Sodium 100 mg/ (Sodium Chloride) 100 mls @ 100 mls/hr IV Q24H [facility] Last Admin: 05/06/17 21:47 Dose: 100 mls/hr Metronidazole (Flagyl) 500 mg in 100 mls @ 100 mls/hr IVPB Q8 [facility] Last Admin: 05/07/17 14:13 Dose: 100 mls/hr Fat Emulsion Intravenous (Intralipid 20%) 250 mls @ 43 mls/hr IV MWF@1800 [facility] Stop: 05/09/17 18:01 Last Admin: 05/06/17 17:46 Dose: 43 mls/hr Acyclovir 700 mg/ Dextrose 250 mls @ 166.667 mls/hr IV Q12H [facility] Last Admin: 05/07/17 03:26 Dose: 166.667 mls/hr Multivitamins/Vitamin C 10 ml/ (Amino Acids) 1,010 mls @ 43 mls/hr IV .[id number] [facility] Stop: 05/07/17 17:29 Last Admin: 05/06/17 17:45 Dose: 43 mls/hr Aztreonam 2 gm/ Sodium (Chloride) 250 mls @ 200 mls/hr IVPB Q8H [facility] Multivitamins/Vitamin C 10 ml/ (Amino Acids) 1,010 mls @ 43 mls/hr IV .[id number] [facility] Stop: 05/08/17 17:29 Metoprolol Succinate (Toprol Xl) 12.5 mg PO BID [facility] Last Admin: 05/07/17 10:53 Dose: Not Given Multivitamins/Minerals (Therapeutic-M Tab) 1 tab PO DAILY [facility] Last Admin: 05/07/17 10:53 Dose: Not Given Mupirocin (Bactroban Ointment) 0 gm TOP BID [facility] Last Admin: 05/07/17 10:52 Dose: Not Given Mupirocin (Bactroban Ointment) 0 gm TOP DAILY [facility] Last Admin: 05/07/17 10:52 Dose: Not Given Saliva Substitute (First Magic Mouthwash) 5 ml PO Q4H [facility] Last Admin: 05/07/17 14:16 Dose: 5 ml Fluticasone/Salmeterol (Advair Diskus 250/50) 1 puff INH RQ12 [facility] Last Admin: 04/28/17 08:00 Dose: 1 puff Zolpidem Tartrate (Ambien) 5 mg PO HS PRN PRN Reason: Insomnia - Labs Labs: 05/07/17 06:17 05/07/17 06:17 PT 13.9 SECONDS (9.7-12.2) H 05/01/17 17:32 INR 1.2 05/01/17 17:32 APTT 25 SECONDS (21-34) 05/01/17 17:32 - Constitutional Appears: Non-toxic, No Acute Distress, Other (pt refused exam) Assessment and Plan - Assessment and Plan (Free Text) Assessment: 82yo F with ulcers - Pt refused physical exam - No immediate plans for biopsy at this time, will biopsy if symptoms worsen - Local wound care for pressure ulcers - L paronychia: soak with saline and betadine 20min TID (pt refusing per nurse) - Discussed plan with Dr. Chester Strauss PGY-3
[2017-05-07] MEDS: SODIUM CHLORIDE 0.9% IVPB SCH (17:25)
[2017-05-07] MEDS ORDERED: PPN IV SCH (18:00)
[2017-05-07 18:56] LABS: ANTI-PM/SCL-100AB <20 Units (<20)
[2017-05-07] MEDS: Micafungin 100 MG in Sodium Chloride 0.9% 100 ML IV SCH (20:10)
[2017-05-07] MEDS: Vancomycin 1 gm/NS 200 ml 1 GM/200 ML BAG IVPB SCH (22:14)
[2017-05-08 00:19] LABS: R. TYPHI IGG NOT DETECTED; R. TYPHI IGM NOT DETECTED; RMSF IGG NOT DETECTED
[2017-05-08] MEDS: AZTREONAM IVPB SCH ×2 (00:32→08:57)
[2017-05-08] MEDS: SODIUM CHLORIDE 0.9% IVPB SCH ×2 (00:32→08:57)
[2017-05-08] MEDS: Mag&Al/Simet/Diphen/Lido 237 ML KIT PO SCH ×6 (03:12→22:01)
[2017-05-08] MEDS: metroNIDAZOLE IV 500 mg/100 ml 500 MG/100 ML BAG IVPB SCH (05:26)
[2017-05-08 07:51] LABS: HEMATOCRIT 24.5 % (34.0-47.0); MEAN CORPUSCULAR HEMOGLOBIN 31.1 pg (27.0-31.0); MEAN CORPUSCULAR HGB CONC 33.1 g/dL (33.0-37.0); MEAN PLATELET VOLUME 9.7 fL (7.2-11.7); RED CELL DISTRIBUTION WIDTH 16.9 % (11.5-14.5); WHITE BLOOD COUNT 27.5 K/uL (4.8-10.8)
[2017-05-08 08:19] LABS: MEAN CELL VOLUME 93.8 fL (81.0-99.0)
[2017-05-08 08:23] LABS: ALB/GLOB RATIO 0.9 (1.0-2.1); ALKALINE PHOSPHATASE 146 U/L (38-126); ALT/SGPT 39 U/L (9-52); AST/SGOT 40 U/L (14-36); BILIRUBIN,TOTAL 0.5 mg/dL (0.2-1.3); BLOOD UREA NITROGEN 11 mg/dL (7-17); CALCIUM 7.6 mg/dl (8.6-10.4); CHLORIDE 96 mmol/L (98-107); GFR AFRICAN-AMERICAN > 60; GLUCOSE,RANDOM 100 mg/dL (65-105); TOTAL PROTEIN 5.8 g/dL (6.3-8.3)
[2017-05-08 08:43] LABS: CARBON DIOXIDE 34 mmol/L (22-30); SODIUM 136 mmol/L (132-148)
--- NOTE | 2017-05-08 10:07 | CP.PCM.PN ---
Subjective - Date & Time of Evaluation Date of Evaluation: 05/08/17 Time of Evaluation: 09:40 - Subjective Subjective: [employer]IST notes Patient seen today states feels better,still c/o mouth sore and poor appetite, denies any sob, abdominal pain son at bed s steffen on TPN hgb - improved after transfusion as per CM patient accepted at [facility] Discharge plan discussed with Dr. Maya , stated patient condition improving and pt only need ADENIKE placement Objective - Vital Signs/Intake and Output Vital Signs (last 24 hours): Temp Pulse Resp BP Pulse Ox 97.3 F L 71 18 131/70 97 05/08/17 08:32 05/08/17 08:32 05/08/17 08:32 05/08/17 08:32 05/08/17 08:32 - Medications Medications: Current Medications Acetaminophen (Tylenol 325mg Tab) 650 mg PO Q4 PRN PRN Reason: Fever >100.4 F Last Admin: 04/30/17 22:58 Dose: 650 mg Acetaminophen (Tylenol 325mg Tab) 650 mg PO Q6 PRN PRN Reason: Pain, Mild (1-3) Last Admin: 05/04/17 14:39 Dose: 650 mg Ergocalciferol (Drisdol 50,000 Intl Units Cap) 1 cap PO QWK [facility] Last Admin: 05/03/17 10:25 Dose: 1 cap Folic Acid (Folic Acid) 1 mg PO DAILY [facility] Last Admin: 05/07/17 10:52 Dose: Not Given Micafungin Sodium 100 mg/ (Sodium Chloride) 100 mls @ 100 mls/hr IV Q24H [facility] Last Admin: 05/07/17 20:10 Dose: 100 mls/hr Metronidazole (Flagyl) 500 mg in 100 mls @ 100 mls/hr IVPB Q8 [facility] Last Admin: 05/08/17 05:26 Dose: 100 mls/hr Fat Emulsion Intravenous (Intralipid 20%) 250 mls @ 43 mls/hr IV MWF@1800 [facility] Stop: 05/09/17 18:01 Last Admin: 05/06/17 17:46 Dose: 43 mls/hr Acyclovir 700 mg/ Dextrose 250 mls @ 166.667 mls/hr IV Q12H [facility] Last Admin: 05/08/17 03:11 Dose: 166.667 mls/hr Aztreonam 2 gm/ Sodium (Chloride) 250 mls @ 200 mls/hr IVPB Q8H [facility] Last Admin: 05/08/17 08:57 Dose: 200 mls/hr Multivitamins/Vitamin C 10 ml/ (Amino Acids) 1,010 mls @ 43 mls/hr IV .[id number] [facility] Stop: 05/08/17 17:29 Last Admin: 05/07/17 17:25 Dose: 43 mls/hr Multivitamins/Vitamin C 10 ml/ (Amino Acids) 1,010 mls @ 43 mls/hr IV .[id number] [facility] Stop: 05/09/17 17:29 Potassium Chloride (Potassium Chloride 20 Meq/100 Ml) 20 meq in 100 mls @ 50 mls/hr IVPB Q2 [facility] Stop: 05/08/17 15:59 Metoprolol Succinate (Toprol Xl) 12.5 mg PO BID [facility] Last Admin: 05/07/17 17:31 Dose: Not Given Multivitamins/Minerals (Therapeutic-M Tab) 1 tab PO DAILY [facility] Last Admin: 05/07/17 10:53 Dose: Not Given Mupirocin (Bactroban Ointment) 0 gm TOP BID [facility] Last Admin: 05/07/17 18:00 Dose: 1 applic Mupirocin (Bactroban Ointment) 0 gm TOP DAILY [facility] Last Admin: 05/07/17 10:52 Dose: Not Given Saliva Substitute (First Magic Mouthwash) 5 ml PO Q4H [facility] Last Admin: 05/08/17 06:39 Dose: 5 ml Fluticasone/Salmeterol (Advair Diskus 250/50) 1 puff INH RQ12 [facility] Last Admin: 04/28/17 08:00 Dose: 1 puff Zolpidem Tartrate (Ambien) 5 mg PO HS PRN PRN Reason: Insomnia - Labs Labs: 05/08/17 07:17 05/08/17 07:17 PT 13.9 SECONDS (9.7-12.2) H 05/01/17 17:32 INR 1.2 05/01/17 17:32 APTT 25 SECONDS (21-34) 05/01/17 17:32
[2017-05-08] MEDS: Metoprolol Succinate 12.5 mg XL PO SCH ×2 (10:16→17:24)
[2017-05-08] MEDS: Multivitamin With Minerals Tab PO SCH (10:16)
--- NOTE | 2017-05-08 11:49 | PN ---
DATE: SUBJECTIVE: She is starting to feel better. She is on a regular diet right now, which is great. She has less pain in the mouth. The sores are getting better, a little bit stronger. She wants to go to [facility] for rehab. She is on Advair, Ambien, Azactam, Bactroban cream, Clinimix, Drisdol, Magic Mouthwash, Flagyl, Intralipid, Lasix, that was between the 2 units of packed red blood cells; micafungin, potassium replacement, multivitamin, Toprol, aspirin and Zovirax. PHYSICAL EXAMINATION: VITAL SIGNS: She has a 97.8 temperature, 70 pulse, 165/72 blood pressure, 20 respiratory rate, and 100% O2 sat. HEENT: Head is atraumatic, normocephalic. Throat is still sore, but less, if she can swallow better, she can get more food today and starting to improve and she is feeling better with swallowing. HEART: Regular rate. LUNGS: Decreased breath sounds. ABDOMEN: Soft. EXTREMITIES: Trace edema. SKIN: Multiple ulcers that is slowly healing. LABORATORY DATA: She has a 139 sodium, potassium was 3.3 yesterday potassium was replaced; BUN 40, creatinine 0.6, much better. GFR is greater than 60. Sugar is 103, calcium is 7.8, total bilirubin is 0.7. AST is 38, ALT is 47, alkaline phosphatase 137, total protein is 5.8. Her white count is 32.1. She is off the Neupogen. Hemoglobin was low as 7. She got 2 units packed red blood cells. We will see what this morning's hemoglobin and hematocrit are and the platelets went up to 77. ASSESSMENT AND PLAN: Overall, I do think she is starting to improve. She is being seen by Surgery, Hematology/Oncology, Infectious Disease and Cardiology. I am going to put on a consult for case management to help me get her to [facility] for physical therapy when medically cleared by Infectious Disease and Hematology/Oncology and also, the bone marrow is still pending; not sure why it is taking so long. We will continue with aggressive treatment and care with antibiotics, get her out of bed to chair, physical therapy has got to get back involved, hopefully . We will check her labs tomorrow. Tyrell Maya DO [email or web address]
--- NOTE | 2017-05-08 15:17 | CP.PCM.PN ---
Subjective - Date & Time of Evaluation Date of Evaluation: 05/08/17 Time of Evaluation: 15:05 - Subjective Subjective: Clinically better, blood counts improved. 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 Will start epo. Objective - Vital Signs/Intake and Output Vital Signs (last 24 hours): Temp Pulse Resp BP Pulse Ox 97.3 F L 71 18 131/70 97 05/08/17 08:32 05/08/17 08:32 05/08/17 08:32 05/08/17 08:32 05/08/17 08:32 - Medications Medications: Current Medications Acetaminophen (Tylenol 325mg Tab) 650 mg PO Q4 PRN PRN Reason: Fever >100.4 F Last Admin: 04/30/17 22:58 Dose: 650 mg Acetaminophen (Tylenol 325mg Tab) 650 mg PO Q6 PRN PRN Reason: Pain, Mild (1-3) Last Admin: 05/04/17 14:39 Dose: 650 mg Ergocalciferol (Drisdol 50,000 Intl Units Cap) 1 cap PO QWK [facility] Last Admin: 05/03/17 10:25 Dose: 1 cap Folic Acid (Folic Acid) 1 mg PO DAILY [facility] Last Admin: 05/08/17 10:17 Dose: Not Given Micafungin Sodium 100 mg/ (Sodium Chloride) 100 mls @ 100 mls/hr IV Q24H [facility] Last Admin: 05/07/17 20:10 Dose: 100 mls/hr Metronidazole (Flagyl) 500 mg in 100 mls @ 100 mls/hr IVPB Q8 [facility] Last Admin: 05/08/17 05:26 Dose: 100 mls/hr Fat Emulsion Intravenous (Intralipid 20%) 250 mls @ 43 mls/hr IV MWF@1800 [facility] Stop: 05/09/17 18:01 Last Admin: 05/06/17 17:46 Dose: 43 mls/hr Acyclovir 700 mg/ Dextrose 250 mls @ 166.667 mls/hr IV Q12H [facility] Last Admin: 05/08/17 03:11 Dose: 166.667 mls/hr Aztreonam 2 gm/ Sodium (Chloride) 250 mls @ 200 mls/hr IVPB Q8H [facility] Last Admin: 05/08/17 08:57 Dose: 200 mls/hr Multivitamins/Vitamin C 10 ml/ (Amino Acids) 1,010 mls @ 43 mls/hr IV .[id number] [facility] Stop: 05/08/17 17:29 Last Admin: 05/07/17 17:25 Dose: 43 mls/hr Multivitamins/Vitamin C 10 ml/ (Amino Acids) 1,010 mls @ 43 mls/hr IV .[id number] [facility] Stop: 05/09/17 17:29 Potassium Chloride (Potassium Chloride 20 Meq/100 Ml) 20 meq in 100 mls @ 50 mls/hr IVPB Q2 [facility] Stop: 05/08/17 15:59 Last Admin: 05/08/17 14:19 Dose: 50 mls/hr Metoprolol Succinate (Toprol Xl) 12.5 mg PO BID [facility] Last Admin: 05/08/17 10:16 Dose: Not Given Multivitamins/Minerals (Therapeutic-M Tab) 1 tab PO DAILY [facility] Last Admin: 05/08/17 10:16 Dose: Not Given Mupirocin (Bactroban Ointment) 0 gm TOP BID [facility] Last Admin: 05/08/17 10:17 Dose: Not Given Mupirocin (Bactroban Ointment) 0 gm TOP DAILY [facility] Last Admin: 05/08/17 10:17 Dose: Not Given Saliva Substitute (First Magic Mouthwash) 5 ml PO Q4H [facility] Last Admin: 05/08/17 14:20 Dose: 5 ml Fluticasone/Salmeterol (Advair Diskus 250/50) 1 puff INH RQ12 [facility] Last Admin: 04/28/17 08:00 Dose: 1 puff Zolpidem Tartrate (Ambien) 5 mg PO HS PRN PRN Reason: Insomnia - Labs Labs: 05/08/17 07:17 05/08/17 07:17 PT 13.9 SECONDS (9.7-12.2) H 05/01/17 17:32 INR 1.2 05/01/17 17:32 APTT 25 SECONDS (21-34) 05/01/17 17:32 Assessment and Plan (1) Pancytopenia Assessment & Plan: Pancytopenia- Bone marrow showing MDS- Refractory anemia with excess blasts, unclear if it resulted in the severe neutropenia or if the fever/infection and immunosupression added to cytopenias. Will start Epogen injections for now. Cytogenetics pending, will be able to determine treatment once results are back Status: Acute
--- NOTE | 2017-05-08 15:33 | CP.PCM.PN ---
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 Objective - Vital Signs/Intake and Output Vital Signs (last 24 hours): Temp Pulse Resp BP Pulse Ox 97.3 F L 71 18 131/70 97 05/08/17 08:32 05/08/17 08:32 05/08/17 08:32 05/08/17 08:32 05/08/17 08:32 - Medications Medications: Current Medications Acetaminophen (Tylenol 325mg Tab) 650 mg PO Q4 PRN PRN Reason: Fever >100.4 F Last Admin: 04/30/17 22:58 Dose: 650 mg Acetaminophen (Tylenol 325mg Tab) 650 mg PO Q6 PRN PRN Reason: Pain, Mild (1-3) Last Admin: 05/04/17 14:39 Dose: 650 mg Ergocalciferol (Drisdol 50,000 Intl Units Cap) 1 cap PO QWK [facility] Last Admin: 05/03/17 10:25 Dose: 1 cap Folic Acid (Folic Acid) 1 mg PO DAILY [facility] Last Admin: 05/08/17 10:17 Dose: Not Given Micafungin Sodium 100 mg/ (Sodium Chloride) 100 mls @ 100 mls/hr IV Q24H [facility] Last Admin: 05/07/17 20:10 Dose: 100 mls/hr Metronidazole (Flagyl) 500 mg in 100 mls @ 100 mls/hr IVPB Q8 [facility] Last Admin: 05/08/17 05:26 Dose: 100 mls/hr Fat Emulsion Intravenous (Intralipid 20%) 250 mls @ 43 mls/hr IV MWF@1800 [facility] Stop: 05/09/17 18:01 Last Admin: 05/06/17 17:46 Dose: 43 mls/hr Acyclovir 700 mg/ Dextrose 250 mls @ 166.667 mls/hr IV Q12H [facility] Last Admin: 05/08/17 03:11 Dose: 166.667 mls/hr Aztreonam 2 gm/ Sodium (Chloride) 250 mls @ 200 mls/hr IVPB Q8H [facility] Last Admin: 05/08/17 08:57 Dose: 200 mls/hr Multivitamins/Vitamin C 10 ml/ (Amino Acids) 1,010 mls @ 43 mls/hr IV .[id number] [facility] Stop: 05/08/17 17:29 Last Admin: 05/07/17 17:25 Dose: 43 mls/hr Multivitamins/Vitamin C 10 ml/ (Amino Acids) 1,010 mls @ 43 mls/hr IV .[id number] [facility] Stop: 05/09/17 17:29 Potassium Chloride (Potassium Chloride 20 Meq/100 Ml) 20 meq in 100 mls @ 50 mls/hr IVPB Q2 [facility] Stop: 05/08/17 15:59 Last Admin: 05/08/17 14:19 Dose: 50 mls/hr Metoprolol Succinate (Toprol Xl) 12.5 mg PO BID [facility] Last Admin: 05/08/17 10:16 Dose: Not Given Multivitamins/Minerals (Therapeutic-M Tab) 1 tab PO DAILY [facility] Last Admin: 05/08/17 10:16 Dose: Not Given Mupirocin (Bactroban Ointment) 0 gm TOP BID [facility] Last Admin: 05/08/17 10:17 Dose: Not Given Mupirocin (Bactroban Ointment) 0 gm TOP DAILY [facility] Last Admin: 05/08/17 10:17 Dose: Not Given Saliva Substitute (First Magic Mouthwash) 5 ml PO Q4H [facility] Last Admin: 05/08/17 14:20 Dose: 5 ml Fluticasone/Salmeterol (Advair Diskus 250/50) 1 puff INH RQ12 [facility] Last Admin: 04/28/17 08:00 Dose: 1 puff Zolpidem Tartrate (Ambien) 5 mg PO HS PRN PRN Reason: Insomnia - Labs Labs: 05/08/17 07:17 05/08/17 07:17 PT 13.9 SECONDS (9.7-12.2) H 05/01/17 17:32 INR 1.2 05/01/17 17:32 APTT 25 SECONDS (21-34) 05/01/17 17:32 - Constitutional Appears: Non-toxic, Chronically Ill - Head Exam Head Exam: NORMOCEPHALIC - Eye Exam Eye Exam: PERRL. absent: Scleral icterus - ENT Exam ENT Exam: Mucous Membranes Dry - Neck Exam Neck Exam: absent: Lymphadenopathy - Respiratory Exam Respiratory Exam: Decreased Breath Sounds - Cardiovascular Exam Cardiovascular Exam: REGULAR RHYTHM - GI/Abdominal Exam GI & Abdominal Exam: Distended, Soft - Rectal Exam Rectal Exam: Deferred - Exam Exam: NORMAL INSPECTION - Extremities Exam Extremities Exam: absent: Pedal Edema - Back Exam Back Exam: absent: CVA tenderness (L), CVA tenderness (R) Assessment and Plan (1) Pancytopenia Status: Acute (2) Renal insufficiency Status: Acute (3) ARF (acute renal failure) with tubular necrosis Status: Acute (4) Dehydration, severe Status: Acute
[2017-05-08] MEDS ORDERED: Epoetin Alfa Dialysis 40000 UNIT/ml Inj SC ONE ×2 (16:30→18:00)
[2017-05-08] MEDS: Fat Emulsion 20% IV 250 ML IV SCH (17:39)
[2017-05-08] MEDS ORDERED: PPN IV SCH (18:00)
[2017-05-08] MEDS: Micafungin 100 MG in Sodium Chloride 0.9% 100 ML IV SCH (20:23)
[2017-05-08 22:45] LABS: DENGUE FEVER AB (IGG) 0.07
[2017-05-09] MEDS: Mag&Al/Simet/Diphen/Lido 237 ML KIT PO SCH ×5 (02:25→21:48)
[2017-05-09 06:30] LABS: HEMATOCRIT 25.4 % (34.0-47.0); MEAN CELL VOLUME 93.5 fL (81.0-99.0); MEAN CORPUSCULAR HEMOGLOBIN 31.4 pg (27.0-31.0); MEAN CORPUSCULAR HGB CONC 33.6 g/dL (33.0-37.0); MEAN PLATELET VOLUME 9.5 fL (7.2-11.7); RED CELL DISTRIBUTION WIDTH 16.7 % (11.5-14.5)
[2017-05-09 06:51] LABS: ALKALINE PHOSPHATASE 119 U/L (38-126); ALT/SGPT 33 U/L (9-52); AST/SGOT 36 U/L (14-36); BILIRUBIN,TOTAL 0.9 mg/dL (0.2-1.3); BLOOD UREA NITROGEN 9 mg/dL (7-17); CALCIUM 7.7 mg/dl (8.6-10.4); CARBON DIOXIDE 35 mmol/L (22-30); CHLORIDE 91 mmol/L (98-107); GFR AFRICAN-AMERICAN > 60; GLUCOSE,RANDOM 107 mg/dL (65-105); POTASSIUM 3.3 mmol/L (3.6-5.2); SODIUM 132 mmol/L (132-148); TOTAL PROTEIN 5.3 g/dL (6.3-8.3)
[2017-05-09 07:03] LABS: ALB/GLOB RATIO 1.2 (1.0-2.1)
[2017-05-09] MEDS: Fluticasone-Salmeterol 250-50mcg Diskus INH SCH ×2 (11:32→11:33)
[2017-05-09] MEDS: Multivitamin With Minerals Tab PO SCH (11:35)
[2017-05-09] MEDS: Metoprolol Succinate 12.5 mg XL PO SCH ×2 (11:42→17:35)
[2017-05-09] MEDS ORDERED: PPN IV SCH (18:00)
[2017-05-09] MEDS: Micafungin 100 MG in Sodium Chloride 0.9% 100 ML IV SCH (18:03)
--- NOTE | 2017-05-09 21:45 | PN ---
SUBJECTIVE: Ms. Vyas is resting comfortably in bed. She is very alert, very talkative. She is eating more. She is getting potatoes, pancakes, and [place] toast down and mouthful. She is in good spirits, but wants to go to the [facility], not [facility] which is fine for rehab. Her bone marrow came back, she was given shots. She is on IV antibiotics them. Overall, she is definitely getting stronger. She is asking many more questions, much more alert. OBJECTIVE: VITAL SIGNS: Temperature 98.8, pulse 65, blood pressure 176/66, respiratory rate 20, and O2 saturation 100% on 2 liters nasal cannula. HEENT: Head is atraumatic, normocephalic. Throat, I do not see any ulcers, but it still rasmussen for her in the back, but it is much better. HEART: Regular rate. LUNGS: Decreased breath sounds, but clear. ABDOMEN: Soft, obese. EXTREMITIES: No edema. NEUROLOGIC: She is weak. SKIN: She has healing ulcers on the back. MEDICATIONS: She is currently on acyclovir, Advair, Ambien, Bactroban, Drisdol, Magic Mouthwash, folic acid, Intralipid, micafungin, multivitamin, Toprol, Tylenol, and she is off the aztreonam or fell off. LABORATORY DATA: She has sodium 132, potassium 3.3, I gave her a K-rider today, BUN is 9, creatinine 0.5 from where it has been, GFR is greater than 60, sugar is 107, calcium 7.7, total bilirubin is 0.9, AST is 36, ALT is 33, alkaline phosphatase 119 from where it has been, total protein is 5.3, white count down to 27, hemoglobin is up to 8.5, it was 7, after 2 units of packed red blood cells, she will get a shot per Hematology, hematocrit is 25.4, platelets are 175. ASSESSMENT AND PLAN: She is being seen by Infectious Disease, Hematology, Surgery, Cardiology. The plan next, we are going to send her to [facility] for physical therapy before she goes home. Hopefully, that will happen in the next week. I do think she is starting to improve. We need to get her out of bed to chair. I see lots of signs of improvement. I think, she is definitely turning in the corner. We will continue with aggressive treatment and care. She will need physical therapy. She wants to go to [facility]. She is here for severe sepsis. Tyrell Maya DO [facility]
[2017-05-10] MEDS: Mag&Al/Simet/Diphen/Lido 237 ML KIT PO SCH ×6 (03:20→22:15)
[2017-05-10 08:00] LABS: HEMATOCRIT 26.5 % (34.0-47.0); MEAN CELL VOLUME 94.1 fL (81.0-99.0); MEAN CORPUSCULAR HEMOGLOBIN 31.2 pg (27.0-31.0); MEAN CORPUSCULAR HGB CONC 33.2 g/dL (33.0-37.0); MEAN PLATELET VOLUME 9.2 fL (7.2-11.7); RED CELL DISTRIBUTION WIDTH 15.9 % (11.5-14.5)
[2017-05-10 08:15] LABS: ALKALINE PHOSPHATASE 121 U/L (38-126); ALT/SGPT 39 U/L (9-52); AST/SGOT 40 U/L (14-36); BILIRUBIN,TOTAL 0.8 mg/dL (0.2-1.3); BLOOD UREA NITROGEN 8 mg/dL (7-17); CALCIUM 7.9 mg/dl (8.6-10.4); CARBON DIOXIDE 35 mmol/L (22-30); CHLORIDE 89 mmol/L (98-107); GFR AFRICAN-AMERICAN > 60; GLUCOSE,RANDOM 100 mg/dL (65-105); POTASSIUM 3.3 mmol/L (3.6-5.2); SODIUM 129 mmol/L (132-148); TOTAL PROTEIN 5.5 g/dL (6.3-8.3)
[2017-05-10 08:20] LABS: ALB/GLOB RATIO 1.2 (1.0-2.1)
[2017-05-10] MEDS: Metoprolol Succinate 12.5 mg XL PO SCH ×2 (10:59→18:21)
[2017-05-10] MEDS: Multivitamin With Minerals Tab PO SCH (10:59)
--- NOTE | 2017-05-10 12:58 | PN ---
DATE: SUBJECTIVE: She is talking much more. She is much more alert. She is less tired. She is getting more strength. She still has not been able to eat yet. I spoke to yesterday's nurse and today's nurse and she is still not eating much. She is on PPN, which is great, but I do think infectious disease henderson, she is improving. She is off the antibiotics right now. She is in no pain. No chest pain or shortness of breath. She knows she needs physical therapy before she goes home. [place] [facility] [place] she might have to go to LTAC because she is on PPN and she is not eating. She is on Advair, Ambien, Bactroban cream, PPN, Drisdol, Magic Mouthwash, folic acid, micafungin, potassium replacement, multivitamins, Toprol, Tylenol and Zovirax. PHYSICAL EXAMINATION: GENERAL: She is more alert and oriented than before, asking better questions. VITAL SIGNS: She has 98.5 temp, 68 pulse, 169/74 blood pressure, 20 respiratory rate, 95% O2 sat on room air on 2 L nasal cannula. HEART: Regular rate. LUNGS: Decreased breath sounds, but clear. ABDOMEN: Soft. EXTREMITIES: No edema. She is very weak. LABORATORY DATA: She has a 132 sodium yesterday and 3.3 of potassium and was replaced, BUN is 9, creatinine 0.5, the best it has been, GFR is greater than 60, sugar is 107, calcium is 7.7, a little bit low. AST is 36, ALT is 33, alk phos 119, all normal, first time for that. Total protein is 5.3. White count is 27, still elevated, it could be from the Neupogen. Hemoglobin went up to 8.5. If keeps going up, we will keep an eye on her. Hematocrit is 25.4, platelets are 175. If she was eating right now, I would be more happy to send her to [facility] for subacute rehab, but because she is not eating yet, we have to continue with the PPN and she might need to go to LTAC. I will leave that up to social workers at this time. Encourage her to eat the diet as best we can and get her out of bed to chair daily, physical therapy as per Infectious Disease. She was here for sepsis. Tyrell Maya DO [facility]
[2017-05-10] MEDS: Ergocalciferol 50,000 Intl Units Cap PO SCH (14:36)
[2017-05-10] MEDS ORDERED: Fat Emulsion 20% IV 250 ML IV SCH (18:00)
[2017-05-10] MEDS: Micafungin 100 MG in Sodium Chloride 0.9% 100 ML IV SCH (18:02)
[2017-05-10] MEDS: PPN IV SCH (18:16)
--- NOTE | 2017-05-10 18:28 | CP.PCM.PN ---
Subjective - Date & Time of Evaluation Date of Evaluation: 05/10/17 Time of Evaluation: 07:00 - Subjective Subjective: weak but arousable denies fever pain or SOB Objective - Vital Signs/Intake and Output Vital Signs (last 24 hours): Temp Pulse Resp BP Pulse Ox 98.1 F 73 20 147/77 97 05/10/17 17:09 05/10/17 17:09 05/10/17 17:09 05/10/17 17:09 05/10/17 17:09 Intake and Output: 05/10/17 05/10/17 06:59 18:59 Intake Total 1103 567 Balance 1103 567 - Medications Medications: Current Medications Acetaminophen (Tylenol 325mg Tab) 650 mg PO Q4 PRN PRN Reason: Fever >100.4 F Last Admin: 04/30/17 22:58 Dose: 650 mg Acetaminophen (Tylenol 325mg Tab) 650 mg PO Q6 PRN PRN Reason: Pain, Mild (1-3) Last Admin: 05/04/17 14:39 Dose: 650 mg Ergocalciferol (Drisdol 50,000 Intl Units Cap) 1 cap PO QWK [facility] Last Admin: 05/10/17 14:36 Dose: Not Given Folic Acid (Folic Acid) 1 mg PO DAILY [facility] Last Admin: 05/10/17 10:59 Dose: 1 mg Micafungin Sodium 100 mg/ (Sodium Chloride) 100 mls @ 100 mls/hr IV Q24H [facility] Last Admin: 05/10/17 18:02 Dose: 100 mls/hr Acyclovir 700 mg/ Dextrose 250 mls @ 166.667 mls/hr IV Q12H [facility] Last Admin: 05/10/17 14:36 Dose: 166.667 mls/hr Multivitamins/Vitamin C 10 ml/ (Amino Acids) 1,010 mls @ 43 mls/hr IV .[id number] [facility] Stop: 05/11/17 17:59 Last Admin: 05/10/17 18:16 Dose: 43 mls/hr Fat Emulsion Intravenous (Intralipid 20%) 250 mls @ 43 mls/hr IV MWF [facility] Last Admin: 05/10/17 18:17 Dose: 43 mls/hr Metoprolol Succinate (Toprol Xl) 12.5 mg PO BID [facility] Last Admin: 05/10/17 18:21 Dose: 12.5 mg Multivitamins/Minerals (Therapeutic-M Tab) 1 tab PO DAILY [facility] Last Admin: 05/10/17 10:59 Dose: 1 tab Mupirocin (Bactroban Ointment) 0 gm TOP BID [facility] Last Admin: 05/10/17 18:03 Dose: Not Given Mupirocin (Bactroban Ointment) 0 gm TOP DAILY [facility] Last Admin: 05/10/17 14:25 Dose: Not Given Saliva Substitute (First Magic Mouthwash) 5 ml PO Q4H [facility] Last Admin: 05/10/17 18:20 Dose: 5 ml Fluticasone/Salmeterol (Advair Diskus 250/50) 1 puff INH RQ12 [facility] Last Admin: 05/09/17 11:33 Dose: 1 puff Zolpidem Tartrate (Ambien) 5 mg PO HS PRN PRN Reason: Insomnia - Labs Labs: 05/10/17 07:53 05/10/17 07:53 PT 13.9 SECONDS (9.7-12.2) H 05/01/17 17:32 INR 1.2 05/01/17 17:32 APTT 25 SECONDS (21-34) 05/01/17 17:32 - Constitutional Appears: Non-toxic, Chronically Ill - Head Exam Head Exam: NORMOCEPHALIC - Eye Exam Eye Exam: PERRL - ENT Exam ENT Exam: Mucous Membranes Dry - Neck Exam Neck Exam: absent: Lymphadenopathy - Respiratory Exam Respiratory Exam: Decreased Breath Sounds - Cardiovascular Exam Cardiovascular Exam: REGULAR RHYTHM - GI/Abdominal Exam GI & Abdominal Exam: Distended, Soft - Rectal Exam Rectal Exam: Deferred - Exam Exam: NORMAL INSPECTION - Extremities Exam Extremities Exam: absent: Pedal Edema - Back Exam Back Exam: absent: CVA tenderness (L), CVA tenderness (R) - Neurological Exam Neurological Exam: Alert, Awake, Oriented x3 Assessment and Plan (1) Pancytopenia Status: Acute (2) Renal insufficiency Status: Acute (3) ARF (acute renal failure) with tubular necrosis Status: Acute (4) Dehydration, severe Status: Acute
[2017-05-11] MEDS: Mag&Al/Simet/Diphen/Lido 237 ML KIT PO SCH ×6 (03:22→21:41)
[2017-05-11 07:29] LABS: HEMATOCRIT 26.6 % (34.0-47.0); MEAN CELL VOLUME 93.9 fL (81.0-99.0); MEAN CORPUSCULAR HEMOGLOBIN 31.3 pg (27.0-31.0); MEAN CORPUSCULAR HGB CONC 33.4 g/dL (33.0-37.0); MEAN PLATELET VOLUME 8.9 fL (7.2-11.7); RED CELL DISTRIBUTION WIDTH 15.6 % (11.5-14.5); WHITE BLOOD COUNT 25.4 K/uL (4.8-10.8)
[2017-05-11 08:32] LABS: ALB/GLOB RATIO 1.3 (1.0-2.1); ALKALINE PHOSPHATASE 111 U/L (38-126); ALT/SGPT 35 U/L (9-52); AST/SGOT 45 U/L (14-36); BILIRUBIN,TOTAL 0.7 mg/dL (0.2-1.3); BLOOD UREA NITROGEN 9 mg/dL (7-17); CARBON DIOXIDE 33 mmol/L (22-30); CHLORIDE 91 mmol/L (98-107); GFR AFRICAN-AMERICAN > 60; GLUCOSE,RANDOM 92 mg/dL (65-105); POTASSIUM 3.3 mmol/L (3.6-5.2); SODIUM 130 mmol/L (132-148); TOTAL PROTEIN 5.7 g/dL (6.3-8.3)
[2017-05-11 08:36] VITALS: RESP 20
[2017-05-11] MEDS: Metoprolol Succinate 12.5 mg XL PO SCH ×2 (10:20→18:15)
[2017-05-11] MEDS: Multivitamin With Minerals Tab PO SCH (10:20)
--- NOTE | 2017-05-11 13:02 | PN ---
SUBJECTIVE: I saw Lilliam is resting comfortably in bed. She is comfortable. She is doing much better. She is talking to me. We just have to get her to eat. She is still on PPN. I discussed at length with her as she has started eating, she can eat. Her throat is much better, but she does not like the food here. Family is bringing her food. If we can document that she is eating what the family is bringing in, I will discontinue the PPN and work for [facility] where she wants to go. If she can eat and no matter what we give her, she would not eat, would have to go to LTAC. I am hoping we get her to [facility] by Saturday. The nurses note that we are trying to do. Also, we have to get her out of bed to chair everyday. I discussed with the nurses too that we are out a little bit yesterday for 20 minutes, I want an 1 hour today. PHYSICAL EXAMINATION: VITAL SIGNS: She has 98 temperature, 84 pulse, 147/67 blood pressure, 18 respiratory rate, 90% O2 saturation on 2L. HEENT: Head is atraumatic and normocephalic. GENERAL: She is very alert. She is talking. She is more appropriate. She is back to her baseline mentally. She has to get her physically improved with eating and physical activity, getting out of bed to chair and got to get her walk again. HEART: Regular rate. LUNGS: Clear to auscultation. ABDOMEN: Soft and obese. EXTREMITIES: No edema. She is really improved greatly. SKIN: Her skin still has the ulcers, which is slowly improving but not worse MEDICATIONS: She is currently on acyclovir, fluticasone, Ambien, Bactroban cream, Drisdol, Magic Mouthwash, folic acid, Intralipid, micafungin, multivitamins, Toprol, Tylenol. LABORATORY DATA: She has 24 white count, coming down, 8.8 hemoglobin, 26.5 hematocrit, 289 that was yesterday. Sodium 129, potassium 3.3, yesterday we replaced potassium, BUN 8, creatinine 0.6, GFR is greater than 60, calcium is 7.9 better, AST is 40, ALT is 39, alkaline phosphatase 121, total protein is 5.5. Not sure where this morning labs are yet, they are not back. I discussed at length with the nurse, we trying to get her eat. Also, we are planning to get her hopefully to [facility] on Saturday versus LTAC. If she could eat, we will get her to [facility], otherwise LTAC with PPN on Saturday, she understands that. She will work on eating, hopefully it will work. This is a progress note, Tremaine Velazquez has improved greatly. We have to start getting her out of here, get her to physical therapy so she can get stronger and start to walk and go home. She has severe sepsis. Tyrell Maya DO MTDD
[2017-05-11] MEDS: PPN IV SCH (16:44)
[2017-05-11] MEDS ORDERED: PPN IV SCH (18:00)
[2017-05-11] MEDS: Micafungin 100 MG in Sodium Chloride 0.9% 100 ML IV SCH (18:15)
[2017-05-12] MEDS: Mag&Al/Simet/Diphen/Lido 237 ML KIT PO SCH ×5 (02:34→17:30)
[2017-05-12 08:09] VITALS: O2SAT 95
[2017-05-12 08:09] LABS: HEMATOCRIT 26.6 % (34.0-47.0); MEAN CELL VOLUME 95.2 fL (81.0-99.0); MEAN CORPUSCULAR HEMOGLOBIN 32.1 pg (27.0-31.0); MEAN CORPUSCULAR HGB CONC 33.7 g/dL (33.0-37.0); RED CELL DISTRIBUTION WIDTH 15.3 % (11.5-14.5); WHITE BLOOD COUNT 21.9 K/uL (4.8-10.8)
[2017-05-12 08:31] LABS: ALKALINE PHOSPHATASE 110 U/L (38-126); ALT/SGPT 28 U/L (9-52); AST/SGOT 39 U/L (14-36); BILIRUBIN,TOTAL 0.8 mg/dL (0.2-1.3); BLOOD UREA NITROGEN 9 mg/dL (7-17); CALCIUM 8.2 mg/dl (8.6-10.4); CARBON DIOXIDE 33 mmol/L (22-30); CHLORIDE 90 mmol/L (98-107); GFR AFRICAN-AMERICAN > 60; GLUCOSE,RANDOM 90 mg/dL (65-105); POTASSIUM 3.2 mmol/L (3.6-5.2); SODIUM 129 mmol/L (132-148); TOTAL PROTEIN 5.9 g/dL (6.3-8.3)
[2017-05-12 08:35] LABS: ALB/GLOB RATIO 1.1 (1.0-2.1)
[2017-05-12] MEDS: Multivitamin With Minerals Tab PO SCH (09:56)
[2017-05-12] MEDS: Metoprolol Succinate 12.5 mg XL PO SCH ×2 (09:56→17:31)
--- NOTE | 2017-05-12 12:12 | PN ---
DATE: SUBJECTIVE: I saw her resting comfortably in bed. She finally started to eat, she has not been eating for about 36 hours, she is eating her breakfast now. She is in better spirits. No pain. No shortness of breath. No abdominal pain. She refused to have the nurse change her dressings and she does not want to get, but she will go to [facility] for physical therapy. She is on fluticasone, Ambien, Bactroban cream, Drisdol, Magic Mouthwash only if she wants it, folic acid, potassium replacement, multivitamin, metoprolol, and Tylenol. I am trying to get Mycamine discontinue by Infectious Disease. PHYSICAL EXAMINATION: GENERAL: She is talking, alert, comfortable. VITAL SIGNS: She has 98.5 temp, 74 pulse, 168/79 blood pressure, 20 respiratory rate, 95% O2 saturation on room air. HEENT: Head is atraumatic and normocephalic. Throat is moist. NECK: Supple. HEART: Regular rate. LUNGS: Clear to auscultation. ABDOMEN: Soft and obese. EXTREMITIES: No edema. LABORATORY DATA: She has 129 sodium; potassium 3.2, I replaced potassium; BUN 9; and creatinine 0.7, GFR is greater than 60, sugar is 90, calcium is 8.2. Total bilirubin is 0.8, AST is 39, ALT is 28, and alkaline phosphatase is 110. Total protein is 5.9. White count is down to 21.9, she got a dose of Neupogen; hemoglobin is up to 9, hematocrit 26.6, platelets of 709. ASSESSMENT AND PLAN: Overall, she is definitely improving physically, she is asking better questions, mentally, I think she is over the infection. I am going to need her to eat and go physical therapy at [facility] tomorrow. I consulted case management to help get her out and she is here for severe sepsis. Tyrell Maya DO [facility]
--- NOTE | 2017-05-12 17:14 | CP.PCM.PN ---
Subjective - Date & Time of Evaluation Date of Evaluation: 05/12/17 Time of Evaluation: 09:00 - Subjective Subjective: improving afebrile alert Objective - Vital Signs/Intake and Output Vital Signs (last 24 hours): Temp Pulse Resp BP Pulse Ox 98.2 F 69 20 160/82 H 95 05/12/17 16:22 05/12/17 16:22 05/12/17 16:22 05/12/17 16:22 05/12/17 16:22 Intake and Output: 05/12/17 05/12/17 06:59 18:59 Intake Total 1009 350 Balance 1009 350 - Medications Medications: Current Medications Acetaminophen (Tylenol 325mg Tab) 650 mg PO Q4 PRN PRN Reason: Fever >100.4 F Last Admin: 04/30/17 22:58 Dose: 650 mg Acetaminophen (Tylenol 325mg Tab) 650 mg PO Q6 PRN PRN Reason: Pain, Mild (1-3) Last Admin: 05/04/17 14:39 Dose: 650 mg Ergocalciferol (Drisdol 50,000 Intl Units Cap) 1 cap PO QWK [facility] Last Admin: 05/10/17 14:36 Dose: Not Given Folic Acid (Folic Acid) 1 mg PO DAILY [facility] Last Admin: 05/12/17 09:06 Dose: Not Given Micafungin Sodium 100 mg/ (Sodium Chloride) 100 mls @ 100 mls/hr IV Q24H [facility] Last Admin: 05/11/17 18:15 Dose: 100 mls/hr Metoprolol Succinate (Toprol Xl) 12.5 mg PO BID [facility] Last Admin: 05/12/17 09:56 Dose: 12.5 mg Multivitamins/Minerals (Therapeutic-M Tab) 1 tab PO DAILY [facility] Last Admin: 05/12/17 09:56 Dose: 1 tab Mupirocin (Bactroban Ointment) 0 gm TOP BID [facility] Last Admin: 05/12/17 09:06 Dose: Not Given Mupirocin (Bactroban Ointment) 0 gm TOP DAILY [facility] Last Admin: 05/12/17 09:06 Dose: Not Given Saliva Substitute (First Magic Mouthwash) 5 ml PO Q4H [facility] Last Admin: 05/12/17 13:49 Dose: 5 ml Fluticasone/Salmeterol (Advair Diskus 250/50) 1 puff INH RQ12 [facility] Last Admin: 05/09/17 11:33 Dose: 1 puff Zolpidem Tartrate (Ambien) 5 mg PO HS PRN PRN Reason: Insomnia - Labs Labs: 05/12/17 07:45 05/12/17 07:45 PT 13.9 SECONDS (9.7-12.2) H 05/01/17 17:32 INR 1.2 05/01/17 17:32 APTT 25 SECONDS (21-34) 05/01/17 17:32 - Constitutional Appears: Non-toxic, Cachectic, Chronically Ill - Head Exam Head Exam: NORMOCEPHALIC - Eye Exam Eye Exam: PERRL. absent: Scleral icterus - ENT Exam ENT Exam: Mucous Membranes Dry - Neck Exam Neck Exam: absent: Lymphadenopathy - Respiratory Exam Respiratory Exam: Decreased Breath Sounds - Cardiovascular Exam Cardiovascular Exam: REGULAR RHYTHM - GI/Abdominal Exam GI & Abdominal Exam: Distended, Soft. absent: Tenderness - Rectal Exam Rectal Exam: Deferred - Exam Exam: NORMAL INSPECTION - Extremities Exam Extremities Exam: absent: Pedal Edema - Back Exam Back Exam: absent: CVA tenderness (L), CVA tenderness (R) Assessment and Plan (1) Pancytopenia Status: Acute (2) Renal insufficiency Status: Acute (3) ARF (acute renal failure) with tubular necrosis Status: Acute (4) Dehydration, severe Status: Acute
[2017-05-12] MEDS: Micafungin 100 MG in Sodium Chloride 0.9% 100 ML IV SCH (19:00)
[2017-05-13] MEDS: Mag&Al/Simet/Diphen/Lido 237 ML KIT PO SCH ×5 (01:50→17:32)
[2017-05-13 09:07] LABS: HEMATOCRIT 29.2 % (34.0-47.0); MEAN CELL VOLUME 95.9 fL (81.0-99.0); MEAN CORPUSCULAR HEMOGLOBIN 31.4 pg (27.0-31.0); MEAN CORPUSCULAR HGB CONC 32.8 g/dL (33.0-37.0); RED CELL DISTRIBUTION WIDTH 15.8 % (11.5-14.5); WHITE BLOOD COUNT 24.7 K/uL (4.8-10.8)
[2017-05-13 09:36] LABS: ALB/GLOB RATIO 0.9 (1.0-2.1); ALKALINE PHOSPHATASE 116 U/L (38-126); ALT/SGPT 37 U/L (9-52); AST/SGOT 48 U/L (14-36); BILIRUBIN,TOTAL 0.6 mg/dL (0.2-1.3); BLOOD UREA NITROGEN 9 mg/dL (7-17); CALCIUM 8.5 mg/dl (8.6-10.4); CARBON DIOXIDE 31 mmol/L (22-30); CHLORIDE 92 mmol/L (98-107); GFR AFRICAN-AMERICAN > 60; GLUCOSE,RANDOM 80 mg/dL (65-105); POTASSIUM 3.7 mmol/L (3.6-5.2); SODIUM 132 mmol/L (132-148); TOTAL PROTEIN 7.3 g/dL (6.3-8.3)
[2017-05-13] MEDS: Multivitamin With Minerals Tab PO SCH (09:38)
[2017-05-13] MEDS: Metoprolol Succinate 12.5 mg XL PO SCH ×2 (09:42→17:26)
[2017-05-13] MEDS ORDERED: Enoxaparin 30 mg Syringe SC SCH (11:15)
--- NOTE | 2017-05-13 12:51 | CP.PCM.PN ---
Subjective - Date & Time of Evaluation Date of Evaluation: 05/13/17 Time of Evaluation: 12:48 - Subjective Subjective: The patient feels better, improved appetite, and mouth sores. Getting OOB to chair. Scheduled to go to rehab facility. Discussed with the patient the findings on the bone marrow and that she may need to be on epogen injections to keep the hemoglobin above 10 Objective - Vital Signs/Intake and Output Vital Signs (last 24 hours): Temp Pulse Resp BP Pulse Ox 98.8 F 86 20 151/74 H 95 05/13/17 08:05 05/13/17 08:05 05/13/17 08:05 05/13/17 08:05 05/13/17 08:05 Intake and Output: 05/13/17 05/13/17 06:59 18:59 Intake Total 220 Balance 220 - Medications Medications: Current Medications Acetaminophen (Tylenol 325mg Tab) 650 mg PO Q4 PRN PRN Reason: Fever >100.4 F Last Admin: 04/30/17 22:58 Dose: 650 mg Acetaminophen (Tylenol 325mg Tab) 650 mg PO Q6 PRN PRN Reason: Pain, Mild (1-3) Last Admin: 05/04/17 14:39 Dose: 650 mg Clopidogrel Bisulfate (Plavix) 75 mg PO DAILY [facility] Enoxaparin Sodium (Lovenox) 30 mg SC DAILY [facility] Ergocalciferol (Drisdol 50,000 Intl Units Cap) 1 cap PO QWK [facility] Last Admin: 05/10/17 14:36 Dose: Not Given Folic Acid (Folic Acid) 1 mg PO DAILY [facility] Last Admin: 05/13/17 09:38 Dose: 1 mg Micafungin Sodium 100 mg/ (Sodium Chloride) 100 mls @ 100 mls/hr IV Q24H [facility] Last Admin: 05/12/17 19:00 Dose: 100 mls/hr Metoprolol Succinate (Toprol Xl) 12.5 mg PO BID [facility] Last Admin: 05/13/17 09:42 Dose: 12.5 mg Multivitamins/Minerals (Therapeutic-M Tab) 1 tab PO DAILY [facility] Last Admin: 05/13/17 09:38 Dose: 1 tab Mupirocin (Bactroban Ointment) 0 gm TOP BID [facility] Last Admin: 05/13/17 09:38 Dose: Not Given Mupirocin (Bactroban Ointment) 0 gm TOP DAILY [facility] Last Admin: 05/13/17 09:38 Dose: Not Given Saliva Substitute (First Magic Mouthwash) 5 ml PO Q4H [facility] Last Admin: 05/13/17 09:37 Dose: 5 ml Fluticasone/Salmeterol (Advair Diskus 250/50) 1 puff INH RQ12 [facility] Last Admin: 05/09/17 11:33 Dose: 1 puff Zolpidem Tartrate (Ambien) 5 mg PO HS PRN PRN Reason: Insomnia Last Admin: 05/12/17 22:23 Dose: 5 mg - Labs Labs: 05/13/17 08:50 05/13/17 08:50 PT 13.9 SECONDS (9.7-12.2) H 05/01/17 17:32 INR 1.2 05/01/17 17:32 APTT 25 SECONDS (21-34) 05/01/17 17:32 Assessment and Plan (1) Pancytopenia Assessment & Plan: 82 yo woman admitted with severe pancytopenia, most likely a combination of immunosuppression and sepsis. She was also found to have myelodysplastic syndrome on her marrow biopsy, cytogenetics still pending. Would recommend treatment (ie, epogen injections, PO Revlimid with deletion 5q only if her counts drop or her Hgb remains less than 10) Will see if she can follow up from the correction in 1 week to have counts checked and for discussion about the final results of her bone marrow biopsy Status: Acute
[2017-05-13 16:48] VITALS: BP 163/80; PULSE 79; TEMP 98.7
[2017-05-13] MEDS: Micafungin 100 MG in Sodium Chloride 0.9% 100 ML IV SCH (19:50)
--- NOTE | 2017-05-14 02:09 | DS ---
HISTORY: I saw Lilliam resting comfortably in bed. She is eating better. She is off the IV, PPN. She needs physical therapy, we can get her [facility] today. She is on Flonase, Ambien, Bactroban cream, Drisdol, Magic mouthwash, folic acid, potassium, metoprolol, and acetaminophen. She is still on the micafungin, I do not think she needs it anymore. PHYSICAL EXAMINATION: VITAL SIGNS: She has a 98.8 temp, 86 pulse, 151/74 blood pressure, 20 respiratory rate, 95% O2 saturation on room air. HEENT: Head is atraumatic and normocephalic. HEART: Regular rate. LUNGS: Clear to auscultation. ABDOMEN: Soft. EXTREMITIES: No edema and there is some skin ulcers that is healing. LABORATORY DATA: She has a 24.7 white count, 9.6 hemoglobin, 29.2 hematocrit with platelets. 132 sodium, potassium 3.7, BUN 9, creatinine 0.8, GFR is greater than 60, sugar is 80, calcium is 8.5, total bili is 0.6, AST is 48, ALT is 37, alkaline phosphatase 116, total protein is 7.3. Clinically, she is doing a lot better. She was seen by Dr. Welch yesterday. She was also being seen by Hematology/Oncology. She had pancytopenia, renal insufficiency, acute renal failure with tubular necrosis, dehydration. Dr. Welch did not give me a plan of micafungin and need to have a plan from Hematology about her, and then we could discharge her today to [facility]. I think clinically she is ready to go. Tyrell Maya DO MTDD
== END 2017-05-13 19:45 | DRG 853 ==
LOC: C.ER 19:00 → C.9E 21:49 → C.5S 22:51 → C.3T 05-09 17:09
PROVIDERS: ADMIT Family Medicine; ATTEND Family Medicine
PROC: 02HV33Z Insertion of Infusion Device into Superior Vena Cava, Percutaneous Approach (ICD-10-PCS; 2017-04-26)
PROC: B518ZZA Fluoroscopy of Superior Vena Cava, Guidance (ICD-10-PCS; 2017-04-26)
PROC: 30233N1 Transfusion of Nonautologous Red Blood Cells into Peripheral Vein, Percutaneous Approach (ICD-10-PCS; 2017-04-26)
PROC: 07DR3ZX Extraction of Iliac Bone Marrow, Percutaneous Approach, Diagnostic (ICD-10-PCS; 2017-04-29)
PROC: 6A550Z2 Pheresis of Platelets, Single (ICD-10-PCS; 2017-04-30)
PROC: 3E0336Z Introduction of Nutritional Substance into Peripheral Vein, Percutaneous Approach (ICD-10-PCS; principal; 2017-05-03)
PROC: 0WB3XZX Excision of Oral Cavity and Throat, External Approach, Diagnostic (ICD-10-PCS; 2017-05-03)
DX: A41.9 Sepsis, unspecified organism (principal); N17.0 Acute kidney failure with tubular necrosis; B00.2 Herpesviral gingivostomatitis and pharyngotonsillitis; D46.9 Myelodysplastic syndrome, unspecified; D61.818 Other pancytopenia; R64 Cachexia; D70.9 Neutropenia, unspecified; E86.0 Dehydration; L89.90 Pressure ulcer of unspecified site, unspecified stage; B02.8 Zoster with other complications; R65.20 Severe sepsis without septic shock; E11.9 Type 2 diabetes mellitus without complications; D53.9 Nutritional anemia, unspecified; I10 Essential (primary) hypertension; J34.2 Deviated nasal septum; J44.9 Chronic obstructive pulmonary disease, unspecified; R50.81 Fever presenting with conditions classified elsewhere; M06.9 Rheumatoid arthritis, unspecified; Z87.891 Personal history of nicotine dependence; Z86.73 Personal history of transient ischemic attack (TIA), and cerebral infarction without residual deficits